=== PATIENT | female | born 1985 | race Caucasian/White ===

== ENCOUNTER 2020-10-01 15:43 | Observation (INO) ==
[2020-10-01] MEDS ORDERED: VANCOMYCIN CONSULT ACTIVE PRN (17:33)
[2020-10-01] MEDS ORDERED: cefTRIAXone SODIUM 1,000 MG/50 ML BAG IV STA (17:33)
[2020-10-01] MEDS ORDERED: VANCOMYCIN HCL 1,500 MG in SODIUM CHLORIDE 0.9% 500 ML IV ONE (17:33)
--- NOTE | 2020-10-01 17:43 | Emergency Department Note ---
Impression & Plan Tenosynovitis of finger, IV drug abuse, Cellulitis of finger of left hand ED Provider Note NAME: KANDI BUSTILLO AGE: 35 SEX: F : 1985 ARRIVES VIA: Walk-In INFORMANT: Patient ED PROVIDER(S): Yao Doan DO CHIEF COMPLAINT: Pain in left hand HPI: Patient is a 35-year-old female IV drug user who intermittently injects heroin that presents to the ER for severe left hand pain, swelling and redness. She injected about 2-3 nights ago around the left hand on the dorsal surface. She notes significant swelling of the left second digit with redness tracking into the hand and swelling of the remaining digits. Pain is severe with movement. Describes as a 6 out of 10. Denies any headache or chest pain. No shortness of breath, nausea, vomiting or diarrhea. No dysuria, urgency or frequency. No other exacerbating or remitting factors. ROS: See above HPI for pertinent positives & negatives. A total of 10 systems reviewed and were otherwise negative. PAST MEDICAL HISTORY:See Below PAST SURGICAL HISTORY:See Below FAMILY HISTORY:See Below SOCIAL HISTORY:See Below HOME MEDICATIONS:See Below ALLERGIES:See Below VITALS:See Below PHYSICAL EXAMINATION: GENERAL: Sitting up in bed, alert, disheveled, no acute distress EYE EXAM: normal conjunctiva. OROPHARYNX: mucous membranes are moist LUNGS: Clear to auscultation. Normal chest wall mechanics HEART: no murmurs, S1 normal and S2 normal ABDOMEN: abdomen soft, non-tender, normo-active bowel sounds, no masses, no rebound or guarding. UPPER EXTREMITIES: Swelling of the left hand with circumferential swelling and redness of the left second digit. Held in partial flexion. Significant pain with extension. Swelling of the remaining digits with intermittent edema tracking on the dorsal surface of the hand up to the wrist. Skin is warm and tender. No drainage. No focal abscess. LOWER EXTREMITIES: No pitting edema. NEURO EXAM: Normal sensorium MEDICAL DECISION MAKING: Patient is a 35-year-old female who is an IV drug user that presents the ER for swelling of her left hand as well as finger. She has significant pain and redness. Is held in flexion. Consistent with tenosynovitis. Redness is streaking up the wrist into the forearm. Vitals are stable. X-ray shows no obvious foreign body. Labs show no significant leukocytosis or anemia. BMP with LFTs bilirubin was unremarkable. Covid was negative. Patient was updated bedside. She given IV vancomycin any Rocephin to cover for any anaerobes in case she licks needles. Patient was discussed the hospitalist admitted for further work-up. Triage Nursing notes reviewed. Prior medical records reviewed Vital Signs: reviewed and remarkable for no significant abnormalities Differential diagnosis: Cellulitis, abscess, MRSA infection, DVT, necrotizing fasciitis, dermatitis, drug eruption, allergic reaction, as well as other pathologies. ER treatment provided: See below Diagnostics interpreted by me: ECG: none Cardiac Monitoring: An order was placed for continuous cardiac monitoring. The monitor shows a rate of 95 with sinus rhythm. Laboratory studies: As stated above and show below. Imaging studies: X-ray left hand show no obvious foreign bodies Consultation(s): Discussed with hospitalist for further evaluation ED COURSE: Procedures: none Critical Care: None Past Med/Surg History Medical History No acute medical problems Surgical History No pertinent past surgical history Social History (Updated 08/21/20 @ 23:54 by Estephania Morrison PA-C) Smoking Status: Current every day smoker Tobacco Type: Cigarettes Hx Substance Use: Yes Non-Prescribed Medications: Heroin Feels Safe at Home: Yes Allergies Allergies Allergy/AdvReac Type Severity Reaction Status Date / Time Penicillins Allergy Intermediate HIVES Verified 10/01/20 18:56 Home Meds Home Medications Medication Instructions Recorded Confirmed buprenorphine HCl [Subutex] 0 mg SUBLINGUAL DAILY 10/01/20 10/01/20 Results & Data (ED) Vital Signs Vital Signs - 24 hr 10/01/20 16:02 10/01/20 17:56 10/01/20 20:14 Temperature 36.6 C Temperature Source Oral Pulse Rate 97 H Pulse Rate [Finger] 92 H 90 Respiratory Rate 18 18 20 Respiratory Effort / Characteristics Non-Labored Spontaneous Non-Labored Spontaneous Respiratory Depth Normal Normal Respiratory Pattern Regular Regular Blood Pressure 140/79 Blood Pressure [Left Arm] 107/68 116/73 Blood Pressure Mean 99 Blood Pressure Mean [Left Arm] 81 87 Blood Pressure Position Sitting Pulse Oximetry 97 100 98 Oxygen Delivery Method Room Air Room Air Room Air Sepsis Recent Fever Within 48 Hours No Sepsis New/Unexplained Change in Mental Status N/A Sepsis Action Taken by Nursing No Action Required Laboratory Data Result diagrams: 10/01/20 17:50 10/01/20 17:50 Lab Results 10/01/20 10/01/20 10/01/20 Range/Units 17:50 17:50 17:56 WBC 8.69 (4.8-10.8) K/uL RBC 4.52 (4.2-5.4) M/uL Hgb 13.8 (12.0-16.0) g/dL Hct 40.2 (37-47) % MCV 88.9 (80-100) fL MCH 30.5 (25-34) pg MCHC 34.3 (32-36) g/dL RDW Std Deviation 40.4 (36.4-46.3) fL RDW Coeff of Peyton 12.5 (11.5-14.5) % Plt Count 280 (130-400) K/uL MPV 8.6 (7.4-10.4) fL Immature Gran % (Auto) 0.2 % Neut % (Auto) 58.0 % Lymph % (Auto) 27.2 % [place] % (Auto) 10.6 % Eos % (Auto) 3.8 % Baso % (Auto) 0.2 % Neut # (Auto) 5.04 (1.4-6.5) K/uL Lymph # (Auto) 2.36 (1.2-3.4) K/uL [place] # (Auto) 0.92 H (0.11-0.59) K/uL Eos # (Auto) 0.33 (0-0.5) K/uL Baso # (Auto) 0.02 (0-0.2) K/uL Immature Gran # (Auto) 0.02 (0.00-0.02) K/uL Sodium 138 (136-145) mmol/L Potassium 4.0 (3.5-5.1) mmol/L Chloride 104 (98-107) mmol/L Carbon Dioxide 31 (21-32) mmol/L Anion Gap 3.0 (3-11) BUN 10 (7-18) mg/dl Creatinine 0.84 (0.6-1.2) mg/dl Est Cr Clr Drug Dosing 90.0 ml/min Est GFR ( Amer) 103.6 Est GFR (Non-Af Amer) 89.4 BUN/Creatinine Ratio 11.6 (10-20) Glucose 83 (70-99) mg/dl Calcium 9.1 (8.5-10.1) mg/dl Total Bilirubin 0.2 (0.2-1) mg/dl AST 35 (15-37) U/L ALT 60 (12-78) U/L Alkaline Phosphatase 72 (45-117) U/L Total Protein 7.8 (6.4-8.2) gm/dl Albumin 3.8 (3.4-5.0) gm/dl Globulin 4.0 (2.5-4.0) gm/dl Albumin/Globulin Ratio 1.0 (0.9-2) SARS-CoV-2 Ag (Rapid) Negative (Negative) Administered Medications Discontinued Medications Vancomycin HCl 1,500 mg/ (Sodium Chloride) 530 mls @ 200 mls/hr IV NOW ONE Stop: 10/01/20 20:11 Last Admin: 10/01/20 18:17 Dose: 200 mls/hr Documented by: [id number] Ceftriaxone Sodium (Rocephin) 1,000 mg in 50 mls @ 100 mls/hr IV NOW STA Stop: 10/01/20 18:02 Last Infusion: 10/01/20 20:26 Dose: 0 mls/hr Documented by: [id number] Admin: 10/01/20 17:53 Dose: 100 mls/hr Documented by: [id number] Discharge Plan Visit Data Chief Complaint: Finger Pain Stated Complaint: left hand finger infection ED Provider: Yao Doan Discharge Problem: Tenosynovitis of finger, IV drug abuse, Cellulitis of finger of left hand Forms Stand Alone Forms: My [facility] [employer] Prescriptions Prescriptions: No Action buprenorphine HCl [Subutex] 2 mg Tablet, Sublingual 0 mg SUBLINGUAL DAILY RF: 0
[2020-10-01 17:57] LABS: Basophils # (auto) 0.02 K/uL (0-0.2); Basophils % (auto) 0.2 %; Eosinophils # (auto) 0.33 K/uL (0-0.5); Eosinophils % (auto) 3.8 %; Hematocrit (blood only) 40.2 % (37-47); Hemoglobin 13.8 g/dL (12.0-16.0); Immature Granulocytes # (auto) 0.02 K/uL (0.00-0.02); Immature Granulocytes % (auto) 0.2 %; Lymphocytes # (auto) 2.36 K/uL (1.2-3.4); Lymphocytes % (auto) 27.2 %; Mean Corpuscular Hemoglobin 30.5 pg (25-34); Mean Corpuscular Hgb Conc 34.3 g/dL (32-36); Mean Corpuscular Volume 88.9 fL (80-100); Mean Platelet Volume 8.6 fL (7.4-10.4); Monocytes # (auto) 0.92 K/uL (0.11-0.59); Monocytes % (auto) 10.6 %; Neutrophils # (auto) 5.04 K/uL (1.4-6.5); Platelet Count 280 K/uL (130-400); RDW Coefficient of Variation 12.5 % (11.5-14.5); RDW Standard Deviation 40.4 fL (36.4-46.3); Red Blood Count 4.52 M/uL (4.2-5.4); White Blood Count 8.69 K/uL (4.8-10.8)
--- NOTE | 2020-10-01 18:08 | XRay Report ---
XR hand LT min 3V routine CLINICAL HISTORY: Left hand swelling. COMPARISON: None. DISCUSSION: There is soft tissue edema most pronounced involving the index finger. There is also soft tissue swelling involving the dorsum of the hand. No soft tissue gas is visualized. There are no acu te fractures. No radiopaque foreign bodies are visualized. There are no bony destructive lesions. IMPRESSION: 1. No acute fractures 2. No foreign bodies identified 3. Pronounced soft tissue edema ACT 112: Negative or not required by law. Electronically signed by: Bobby Rapp M.D. 10/01/2020 6:06 PM
[2020-10-01 18:14] LABS: Albumin Level 3.8 gm/dl (3.4-5.0); BUN Creatinine Ratio 11.6 (10-20); Calcium 9.1 mg/dl (8.5-10.1); Est GFR (African American) 103.6; Est GFR (Non-African American) 89.4
[2020-10-01 18:19] LABS: Bilirubin,Total 0.2 mg/dl (0.2-1); Total Protein 7.8 gm/dl (6.4-8.2)
--- NOTE | 2020-10-01 19:43 | History & Physical Report ---
Date of Service October 01, 2020 Assessment & Plan (1) IV drug abuse: (2) Cellulitis of finger of left hand: Caren is a 35-year-old female with a past history of heroin use on Subutex who presents with a worsening left first digit cellulitis following heroin injection 2 days ago. Left second digit nonpurulent cellulitis 2/2 IV drug abuse X-ray shows substantial soft tissue swelling but no signs of osteomyelitis or abscess No leukocytosis, no fever/chills or signs of systemic illness - Received vancomycin and Rocephin in ER Continue vancomycin and Rocephin empiric, narrow after 24 hours if clinically improving Blood cultures ordered. Empiric antibiotics prior to blood cultures, may lower sensitivity Tylenol 650 every 4 hours as needed Toradol 10 mg every 6 hours as needed No indication for surgical consultation or abscess amenable to drainage at this time History of IV drug abuse, heroin Patient with a history of snorting and injecting heroin Reports on Subutex followed by psychiatry in [place], has not injected drugs prior to this in a very long time Continue Subutex while inpatient Maximize nonnarcotic analgesia Provide counseling and support, patient will need follow-up appointment with substance abuse counselor at discharge Patient denies other recreational drug use including cocaine No Elliott spots/Janeway lesions on exam. No murmur on exam. Tobacco use Cigarettes, vaping [employer] Nicotine 14 transdermal, Nicorette gum as needed DVT prophylaxis: Lovenox Diet: Regular Disposition: Medical/surgical CODE STATUS: Full code, discussed with patient History of Present Illness Chief Complaint: Hand pain Primary Care Provider: NO PCP Caren reports she was partying with friends two days ago. Usually does not use IV drugs, snorts drugs. "No idea what I was doing," and the next day noticed swelling in her L hand in the inside of the pointer finger. Injected in the pointer finger on the top. Slowly progressively worsened and pain spread into the whole hand. Pain is increased, movement is intact, but has a 'strange pressure' feeling through the whole hand and finger. Finger has been very hot and tender to the touch. Has had some shooting pain to the palm. Feels better with squeezing because of the pressure. She is RIGHT handed. Strength intact. Past injection with heroin. Most recent episode was heroin No attempted tx No other remitting factors Medical Problems: Subutex prescribed by Dr. Vale in [place]. Denies other medications, hx anx/depression Surgery: Hx broke R hand 3x and had to be set. Allergic: PCN, severe hives and difficulty breathing (childhood). Social: Smokes cigarettes and vapes multiple times daily. Would like a nicotine patch. Denies alcohol use in 'a very long time.' Denies recreational drugs other than heroin. Specifically denies heroin use. Lives with her son's father in [place] but recently has been living with her boyfriend in [place], feels safe at home. No hx blood clots, PE. No problems with bleeding. Code Status: Full Code Allergies Allergy/AdvReac Type Severity Reaction Status Date / Time Penicillins Allergy Intermediate HIVES Verified 10/01/20 18:56 Home Medications Medication Instructions Recorded Confirmed Type buprenorphine HCl [Subutex] 0 mg SUBLINGUAL DAILY 10/01/20 10/01/20 History Past Med/Surg History Medical History No acute medical problems Surgical History No pertinent past surgical history Social History (Updated 08/21/20 @ 23:54 by Estephania Morrison PA-C) Smoking Status: Current every day smoker Tobacco Type: Cigarettes Hx Substance Use: Yes Non-Prescribed Medications: Heroin Feels Safe at Home: Yes Review of Systems Review of Systems: Constitutional: Denies fever, chills Eyes: Denies double vision, vision change, eye pain ENT: Denies ear pain, sore throat, sinus wicho. Had a 'weird taste in the mouth, metallic.' No loss in taste or smell. Cardiovascular: Denies Chest pain, chest pressure, palpitations, extremity swelling Respiratory: Denies shortness of breath, cough, sputum production, difficulty breathing Gastrointestinal: Denies abdominal pain, nausea, vomiting, constipation, diarrhea Genitourinary: Denies pain with urination, urinary urgency, urinary frequency Musculoskeletal: Denies weakness, muscle aches/pain, joint aches/pain Integumentary:Denies rash, lesions, bruising Neurological: Denies headache, Some lightheadedness on standing, otherwise no sudden weakness or change in sensation other than her hand noted above. Physical Exam Physical Exam: General: A&Ox3. NAD. Cooperative. HEENT: Atraumatic, normocephalic. No scleral hemorrhages. Pulm: CTAB A&P. -wheezes, -rales, -rhonchi. Symmetrical chest rise. No increase work of breathing. No respiratory distress. Cardiac: RRR, -mrg. Radial pulses intact and symmetrical. Abdominal: Nontender, nondistended, soft. BS present. MSK: L hand with circumferential swelling, tenderness, and warmth at the 2nd digit extending into the palm with additional swelling of the proximal 1st and 3rd digit. Erythema of the 1st digit and palm extending to the wrist. Sensation intact in all fingertips. 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 Strength to supervisor parachute manufacturing and extension intact in 3-5th digits. resisted extension of the first digit produces pain at the dorsal 1st proximal digit. R hand with normal strength to supervisor parachute manufacturing, wrist flexion/extension. elbow flexion/extension 5/5 bilaterally. No elliott spots/Janeway lesions identified. II: Pupils equal and reactive, no relative afferent pupillary defect, no VF cuts III, IV, : EOM intact, no gaze preference or deviation, no nystagmus. Results & Data Results & Data ([facility]) Vital Signs (Past 12 Hours) Vital Signs Temp Pulse Pulse Resp BP BP Pulse Ox 10/01/20 17:56 92 H 18 107/68 100 10/01/20 16:02 36.6 C 97 H 18 140/79 97 Supervising Physician Co-Signing Physician Notes Patient seen and examined, chart reviewed, case discussed with Dr. Gomes and I agree with his assessment and plan as documented above. Briefly, patient is a 35yo C female with history of heroine use currently on Subutex presenting with acute infection of second digit on left hand after injecting heroin 2 days ago. On exam she is afebrile, HD stable, NAD, non-toxic in appearance, poorly kempt, tearful over needing to stay in the hospital Skin - 2nd digit on left hand edematous with warmth and erythema, erythema and edema of dorsum of left hand, no lymphangitic streaking, no crepitus/bullae. Sensation and mobility intact, HEENT - NC/AT, MMM, neck supple, mask in place Heart - +S1/S2, regular, no m/r/g Lungs - CTA Abd - +BS, soft, NT/ND Ext - No edema Neuro - grossly nonfocal Labs and images reviewed. No leukocytosis. Electrolytes and renal function are within normal range. X-ray of left hand with no fracture or evidence of bony involvment Assessment/Plan: 35yo C female with acute cellulitis of left second finger after heroine injection. No bony involvement or foreign body present. Patient afebrile, HD stable with no evidence of systemic infection -Observation to medical floor -Check blood cultures x 2 sets - patient has already received empiric antibiotics which may skew results -Vancomycin and Ceftriaxone IV -Tylenol and Toradol as needed -Do not believe there is a need for surgical consultation at this time - if patient fails to improve with above measures would consider additional imaging and consultation -Encourage cessation of drug use. Will continue Suboxone while inpatient and avoid opiates. Patient should continue with outpatient Psychiatry visits for her addiction -Remainder of plan as above Resident Activity Tracking Resident Involvement: Resident Care Provided Care Provided: Adult Hospital Medicine
--- NOTE | 2020-10-01 21:47 | Billing Data ---
Date of Service October 01, 2020 Coding Level of Care Code 16749 OBS Care - Level 2
[2020-10-01] MEDS ORDERED: ACETAMINOPHEN 325 MG TAB PO PRN (22:16)
[2020-10-01] MEDS ORDERED: ONDANSETRON INJ 2 MG/ML 2 ML VIAL IV PRN (22:16)
[2020-10-01] MEDS ORDERED: NICOTINE POLACRILEX 2 MG GUM MT PRN (22:16)
[2020-10-01] MEDS ORDERED: KETOROLAC TROMETHAMINE 15 MG/ML VIAL IV PRN (22:16)
[2020-10-01] MEDS ORDERED: NICOTINE 14 MG/24 HR PATCH TD SCH (23:00)
--- NOTE | 2020-10-02 02:00 | Communication Note ---
Date of Service: October 02, 2020 Notified at 0141 that patient had eloped from hospital. Strongly recommended patient remain in hospital on earlier discussion based on severity of cell ulitis, potential for the infection to worsen and spread, and need for IV antibiotics with further evaluation. Per security report that her sister was at the hospital was passed to nursing, on staff attempt to contact patient she was found to have eloped with IV still in place. Per nursing security confirmed that patient was seen leaving the hospital premesis in a car. Patient had previously reported her sister lived in [place] to staff. Contact number in chart unable to be reached. Discussed with nursing staff and reported to security and coordinator.
[2020-10-02] MEDS ORDERED: VANCOMYCIN HCL 1,000 MG in SODIUM CHLORIDE 0.9% 250 ML IV SCH (04:00)
[2020-10-02] MEDS ORDERED: ENOXAPARIN INJ 40 MG/0.4 ML SYR SQ SCH (08:00)
[2020-10-02] MEDS ORDERED: buprenorphine HCL 8 MG SUBL SL ONE (09:00)
[2020-10-02] MEDS ORDERED: cefTRIAXone SODIUM 1,000 MG in DEXTROSE 5% 50 ML IV SCH (21:00)
[2020-10-03] MEDS ORDERED: VANCOMYCIN TROUGH ONE (03:30)
== END 2020-10-02 02:00 | disposition left against medical advice (07) ==
LOC: ED 15:43 → 3W 15:43

== ENCOUNTER 2020-10-06 21:27 | Inpatient (IN) ==
[2020-10-06] MEDS ORDERED: VANCOMYCIN CONSULT ACTIVE PRN (22:22)
[2020-10-06] MEDS ORDERED: VANCOMYCIN HCL 1,500 MG in SODIUM CHLORIDE 0.9% 500 ML IV ONE (22:22)
[2020-10-06] MEDS ORDERED: cefTRIAXone SODIUM 1,000 MG/50 ML BAG IV STA (22:22)
[2020-10-06] MEDS ORDERED: SODIUM CHLORIDE 0.9% 1000ML 1,000 ML IV SCH (22:30)
--- NOTE | 2020-10-06 23:13 | Emergency Department Note ---
History of Present Illness General Chief complaint: Hand Injury/Pain Stated complaint: left hand finger pain, swelling, left hand pain Time Seen by Provider: 10/06/20 22:16 History of Present Illness Maximum Pain Intensity: 9 This is a 35-year-old female that presents to the emergency department via private vehicle with complaints "left hand finger pain, swelling, left hand pain". The patient notes that Sunday/Sunday she injected fentanyl into the medial base of the left second digit. She is right-hand dominant. She notes an infection developed and she was seen here in the emergency department and was to be admitted. She then notes that she eloped. She is returning here noting worsening of symptoms. She denies any fevers, chills, chest pain or shortness of breath. She notes that if she squeezes the reason it feels better. She also notes that she did strike the dorsum of the left hand and finger against an object earlier tonight. She notes that she last used illicit substances just prior to arrival around 8:30 PM and notes that she snorted "fentanyl, dope and meth". Patient rates her current pain is a 9/10. I will note the patient is also here with her mother and the mother is quite concerned for the patient and at this time is filling out a petitioning statement 302. Home Medications Medication Instructions Recorded Confirmed Type clindamycin HCl 300 mg PO QID 7 Days #28 cap 10/02/20 10/06/20 Rx buprenorphine-naloxone 1.5 tab SUBLINGUAL DAILY 10/06/20 10/06/20 History Allergies Allergy/AdvReac Type Severity Reaction Status Date / Time Penicillins Allergy Intermediate HIVES Verified 10/06/20 23:41 Past Med/Surg History Medical History No acute medical problems Surgical History No pertinent past surgical history Social History Smoking Status: Current every day smoker Tobacco Type: Cigarettes Cigarettes Per Day: NA; Second Hand Exposure: Yes; Hx Alcohol Use: No Hx Substance Use: No (patient denies current use, admits past use) Preferred Language: Mohawk Communication Ability: Effective 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 Beliefs That Will Affect Care: None Current Living Situation: Other Current Living Situation Comment: fiance Assistive Devices: None Review of Systems A total of 10 systems reviewed and were otherwise negative Physical Exam Vital Signs Vital Signs - 24 hr 10/06/20 21:32 10/06/20 23:20 10/07/20 00:21 Temperature 36.5 C Temperature Source Oral Pulse Rate 97 H Pulse Rate [Finger] 98 H 95 H Pulse Rhythm Regular Pulse Rhythm [Finger] Regular Regular Pulse Strength Normal Pulse Strength [Finger] Normal Respiratory Rate 18 18 18 Respiratory Effort / Characteristics Non-Labored Spontaneous Non-Labored Spontaneous Non-Labored Spontaneous Respiratory Depth Normal Normal Normal Respiratory Pattern Regular Regular Regular Blood Pressure 142/92 H Blood Pressure [Right Arm] 123/86 128/96 Blood Pressure Mean 108 Blood Pressure Mean [Right Arm] 98 106 Blood Pressure Position Sitting Blood Pressure Position [Right Arm] Lying Sitting Pulse Oximetry 100 100 100 Oxygen Delivery Method Room Air Room Air Room Air Sepsis Recent Fever Within 48 Hours No Sepsis New/Unexplained Change in Mental Status No Sepsis Action Taken by Nursing No Action Required 10/07/20 01:25 10/07/20 02:39 Temperature Temperature Source Pulse Rate Pulse Rate [Finger] 85 82 Pulse Rhythm Pulse Rhythm [Finger] Regular Pulse Strength Pulse Strength [Finger] Normal Respiratory Rate 16 18 Respiratory Effort / Characteristics Non-Labored Spontaneous Non-Labored Spontaneous Respiratory Depth Normal Normal Respiratory Pattern Blood Pressure Blood Pressure [Right Arm] 116/78 Blood Pressure Mean Blood Pressure Mean [Right Arm] 90 Blood Pressure Position Blood Pressure Position [Right Arm] Lying Pulse Oximetry 97 97 Oxygen Delivery Method Room Air Room Air Sepsis Recent Fever Within 48 Hours Sepsis New/Unexplained Change in Mental Status Sepsis Action Taken by Nursing VITAL SIGNS - Vital signs and nursing notes were reviewed. Stable and afebrile. GENERAL -35-year-old female her appearing stated age who is in no acute distress but does appear to be quite groggy at this time and is having trouble keeping her eyes open. She does answer questions but in short answers. SKIN/extremity-the patient's left hand circumferentially is diffusely erythematous with edema. Much of the edema is focused in the left second digit diffusely. Patient is able to actively flex and extend all digits of the left hand but decreased range of motion of the left second digit is noted secondary to edema. I am able to passively fully extend the left second digit with min imal pain. No fluctuance. No palpable abscess. Cap refill within normal limits. There is some purplish discoloration noted to a few focal spots of the left second digit. No drainage at this time. HEAD - NC/AT. EYES - PERRL with EOMI bilaterally. Sclera anicteric. EARS - No deformities of external structures noted on gross examination bilaterally. NECK - Neck with FROM. No nuchal rigidity. LUNGS - Chest wall symmetric without accessory muscle use, intercostals retractions, or central cyanosis. Normal vesicular breath sounds CTA B/L. No wheezes, rales, or rhonchi appreciated. CARDIAC - RRR with S1/S2. No murmur, rubs, or gallops appreciated. EXTREMITIES - No clubbing or peripheral cyanosis. No pretibial edema present. Skin and hand as above. +5/5 strength noted in UE/LE bilaterally. NEUROLOGIC - Cranial nerves II through XII grossly intact. Sensory intact to light touch throughout. PSYCH - A&O, and cooperates fully with examiner. Pt is very pleasant and interacts well with examiner. Course Administered Medications Potassium Chloride/Sodium Chloride (Normal Saline W/20 Meq Kcl) 20 meq in 1,000 mls @ 100 mls/hr IV .Q10H TYLER Stop: 11/06/20 04:00 Last Admin: 10/07/20 05:15 Dose: 100 mls/hr Documented by: [id number] Discontinued Medications Sodium Chloride (Nss 1000ml) 1,000 mls @ 999 mls/hr IV .Q1H1M TYLER Stop: 10/06/20 23:30 Last Infusion: 10/07/20 00:25 Dose: 0 mls/hr Documented by: [id number] Admin: 10/06/20 23:20 Dose: 999 mls/hr Documented by: [id number] Ceftriaxone Sodium (Rocephin) 1,000 mg in 50 mls @ 100 mls/hr IV NOW STA Stop: 10/06/20 22:51 Last Infusion: 10/06/20 23:20 Dose: 0 mls/hr Documented by: [id number] Admin: 10/06/20 23:02 Dose: 100 mls/hr Documented by: [id number] Vancomycin HCl 1,500 mg/ (Sodium Chloride) 530 mls @ 200 mls/hr IV NOW ONE Stop: 10/07/20 01:00 Last Infusion: 10/07/20 02:38 Dose: 0 mls/hr Documented by: [id number] Admin: 10/06/20 23:20 Dose: 200 mls/hr Documented by: [id number] Acetaminophen (Ofirmev) 1,000 mg in 100 mls @ 400 mls/hr IV NOW STA Stop: 10/07/20 01:15 Last Infusion: 10/07/20 02:08 Dose: 0 mls/hr Documented by: [id number] Admin: 10/07/20 01:23 Dose: 400 mls/hr Documented by: [id number] Ioversol (Ioversol 100ml) 100 ml IV ONCE ONE Stop: 10/07/20 01:35 Last Admin: 10/07/20 01:34 Dose: 92 ml Documented by: [id number] Medical Decision Making Laboratory Data Result diagrams: 10/06/20 22:45 10/06/20 22:45 Lab Results 10/06/20 10/06/20 10/06/20 Range/Units 22:45 22:45 22:45 WBC 8.54 (4.8-10.8) K/uL RBC 4.32 (4.2-5.4) M/uL Hgb 13.2 (12.0-16.0) g/dL Hct 37.7 (37-47) % MCV 87.3 (80-100) fL MCH 30.6 (25-34) pg MCHC 35.0 (32-36) g/dL RDW Std Deviation 40.0 (36.4-46.3) fL RDW Coeff of Peyton 12.4 (11.5-14.5) % Plt Count 300 (130-400) K/uL MPV 8.7 (7.4-10.4) fL Immature Gran % (Auto) 0.2 % Neut % (Auto) 62.3 % Lymph % (Auto) 22.1 % [place] % (Auto) 11.0 % Eos % (Auto) 4.0 % Baso % (Auto) 0.4 % Neut # (Auto) 5.32 (1.4-6.5) K/uL Lymph # (Auto) 1.89 (1.2-3.4) K/uL [place] # (Auto) 0.94 H (0.11-0.59) K/uL Eos # (Auto) 0.34 (0-0.5) K/uL Baso # (Auto) 0.03 (0-0.2) K/uL Immature Gran # (Auto) 0.02 (0.00-0.02) K/uL ESR 22 H (0-21) mm/hr Sodium 137 (136-145) mmol/L Potassium 3.9 (3.5-5.1) mmol/L Chloride 104 (98-107) mmol/L Carbon Dioxide 30 (21-32) mmol/L Anion Gap 3.0 (3-11) BUN 13 (7-18) mg/dl Creatinine 0.73 (0.6-1.2) mg/dl Est Cr Clr Drug Dosing 103.6 ml/min Est GFR ( Amer) 122.8 Est GFR (Non-Af Amer) 106.0 BUN/Creatinine Ratio 18.5 (10-20) Glucose 134 H (70-99) mg/dl Lactate (0.4-2.0) mmol/L Calcium 8.7 (8.5-10.1) mg/dl Total Bilirubin 0.2 (0.2-1) mg/dl AST 36 (15-37) U/L ALT 63 (12-78) U/L Alkaline Phosphatase 88 (45-117) U/L C-Reactive Protein 1.48 H (0-0.29) mg/dl Total Protein 7.4 (6.4-8.2) gm/dl Albumin 3.4 (3.4-5.0) gm/dl Globulin 4.0 (2.5-4.0) gm/dl Albumin/Globulin Ratio 0.9 (0.9-2) TSH 3.270 (0.300-4.500) uIu/ml HCG, Qual (Negative) Urine Color Urine Appearance (Clear) Urine pH (4.5-7.5) Ur Specific [place] (1.000-1.030) Urine Protein (Negative) Urine Glucose (UA) (Negative) Urine Ketones (Negative) Urine Blood (Negative) Urine Nitrite (Negative) Urine Bilirubin (Negative) Urine Urobilinogen (Negative) Ur Leukocyte Esterase (Negative) Urine WBC (Auto) (0-5) /hpf Urine RBC (Auto) (0-4) /hpf U Hyaline Cast (Auto) (0-5) /lpf U Epithel Cells (Auto) (0-5) /lpf Urine Bacteria (Auto) (Negative) Urine Opiates Screen (Neg) Ur Methadone, Qual (Neg) Urine Barbiturates (Neg) Ur Phencyclidine (PCP) (Neg) U Amphetamin/Meth Scrn (Neg) MDMA (Ecstasy) Screen (Neg) U Benzodiazepines Scrn (Neg) Ur Cocaine Metabolite (Neg) U Marijuana (THC) Screen (Neg) 10/06/20 10/06/20 10/06/20 Range/Units 22:45 22:45 23:00 WBC (4.8-10.8) K/uL RBC (4.2-5.4) M/uL Hgb (12.0-16.0) g/dL Hct (37-47) % MCV (80-100) fL MCH (25-34) pg MCHC (32-36) g/dL RDW Std Deviation (36.4-46.3) fL RDW Coeff of Peyton (11.5-14.5) % Plt Count (130-400) K/uL MPV (7.4-10.4) fL Immature Gran % (Auto) % Neut % (Auto) % Lymph % (Auto) % [place] % (Auto) % Eos % (Auto) % Baso % (Auto) % Neut # (Auto) (1.4-6.5) K/uL Lymph # (Auto) (1.2-3.4) K/uL [place] # (Auto) (0.11-0.59) K/uL Eos # (Auto) (0-0.5) K/uL Baso # (Auto) (0-0.2) K/uL Immature Gran # (Auto) (0.00-0.02) K/uL ESR (0-21) mm/hr Sodium (136-145) mmol/L Potassium (3.5-5.1) mmol/L Chloride (98-107) mmol/L Carbon Dioxide (21-32) mmol/L Anion Gap (3-11) BUN (7-18) mg/dl Creatinine (0.6-1.2) mg/dl Est Cr Clr Drug Dosing ml/min Est GFR ( Amer) Est GFR (Non-Af Amer) BUN/Creatinine Ratio (10-20) Glucose (70-99) mg/dl Lactate 1.0 (0.4-2.0) mmol/L Calcium (8.5-10.1) mg/dl Total Bilirubin (0.2-1) mg/dl AST (15-37) U/L ALT (12-78) U/L Alkaline Phosphatase (45-117) U/L C-Reactive Protein (0-0.29) mg/dl Total Protein (6.4-8.2) gm/dl Albumin (3.4-5.0) gm/dl Globulin (2.5-4.0) gm/dl Albumin/Globulin Ratio (0.9-2) TSH (0.300-4.500) uIu/ml HCG, Qual Negative (Negative) Urine Color Yellow Urine Appearance Cloudy A (Clear) Urine pH 6.0 (4.5-7.5) Ur Specific Dow[place] 1.018 (1.000-1.030) Urine Protein Negative (Negative) Urine Glucose (UA) Negative (Negative) Urine Ketones Negative (Negative) Urine Blood Negative (Negative) Urine Nitrite Negative (Negative) Urine Bilirubin Negative (Negative) Urine Urobilinogen Negative (Negative) Ur Leukocyte Esterase Negative (Negative) Urine WBC (Auto) 1-5 (0-5) /hpf Urine RBC (Auto) 0-4 (0-4) /hpf U Hyaline Cast (Auto) 0 (0-5) /lpf U Epithel Cells (Auto) >30 H (0-5) /lpf Urine Bacteria (Auto) 1+ H (Negative) Urine Opiates Screen (Neg) Ur Methadone, Qual (Neg) Urine Barbiturates (Neg) Ur Phencyclidine (PCP) (Neg) U Amphetamin/Meth Scrn (Neg) MDMA (Ecstasy) Screen (Neg) U Benzodiazepines Scrn (Neg) Ur Cocaine Metabolite (Neg) U Marijuana (THC) Screen (Neg) 10/06/20 Range/Units 23:00 WBC (4.8-10.8) K/uL RBC (4.2-5.4) M/uL Hgb (12.0-16.0) g/dL Hct (37-47) % MCV (80-100) fL MCH (25-34) pg MCHC (32-36) g/dL RDW Std Deviation (36.4-46.3) fL RDW Coeff of Peyton (11.5-14.5) % Plt Count (130-400) K/uL MPV (7.4-10.4) fL Immature Gran % (Auto) % Neut % (Auto) % Lymph % (Auto) % [place] % (Auto) % Eos % (Auto) % Baso % (Auto) % Neut # (Auto) (1.4-6.5) K/uL Lymph # (Auto) (1.2-3.4) K/uL [place] # (Auto) (0.11-0.59) K/uL Eos # (Auto) (0-0.5) K/uL Baso # (Auto) (0-0.2) K/uL Immature Gran # (Auto) (0.00-0.02) K/uL ESR (0-21) mm/hr Sodium (136-145) mmol/L Potassium (3.5-5.1) mmol/L Chloride (98-107) mmol/L Carbon Dioxide (21-32) mmol/L Anion Gap (3-11) BUN (7-18) mg/dl Creatinine (0.6-1.2) mg/dl Est Cr Clr Drug Dosing ml/min Est GFR ( Amer) Est GFR (Non-Af Amer) BUN/Creatinine Ratio (10-20) Glucose (70-99) mg/dl Lactate (0.4-2.0) mmol/L Calcium (8.5-10.1) mg/dl Total Bilirubin (0.2-1) mg/dl AST (15-37) U/L ALT (12-78) U/L Alkaline Phosphatase (45-117) U/L C-Reactive Protein (0-0.29) mg/dl Total Protein (6.4-8.2) gm/dl Albumin (3.4-5.0) gm/dl Globulin (2.5-4.0) gm/dl Albumin/Globulin Ratio (0.9-2) TSH (0.300-4.500) uIu/ml HCG, Qual (Negative) Urine Color Urine Appearance (Clear) Urine pH (4.5-7.5) Ur Specific [place] (1.000-1.030) Urine Protein (Negative) Urine Glucose (UA) (Negative) Urine Ketones (Negative) Urine Blood (Negative) Urine Nitrite (Negative) Urine Bilirubin (Negative) Urine Urobilinogen (Negative) Ur Leukocyte Esterase (Negative) Urine WBC (Auto) (0-5) /hpf Urine RBC (Auto) (0-4) /hpf U Hyaline Cast (Auto) (0-5) /lpf U Epithel Cells (Auto) (0-5) /lpf Urine Bacteria (Auto) (Negative) Urine Opiates Screen Pos H (Neg) Ur Methadone, Qual Neg (Neg) Urine Barbiturates Neg (Neg) Ur Phencyclidine (PCP) Neg (Neg) U Amphetamin/Meth Scrn Pos H (Neg) MDMA (Ecstasy) Screen Pos H (Neg) U Benzodiazepines Scrn Neg (Neg) Ur Cocaine Metabolite Neg (Neg) U Marijuana (THC) Screen Neg (Neg) Imaging Data Radiologist's Impression: CT OTHER - LEFT HAND WITH CONTRAST: Negative for CT signs of osteomyelitis. Negative for fluid collection or abscess. Diffuse distal forearm dorsal soft tissue swelling extending across the wrist joint into the dorsal aspect of the hand and especially the index finger Radiologist: Simone Mays MD Study ready at 01:33 and initial results transmitted at 01:45 MDM Narrative Patient was seen and evaluated as above in room B5. Review was performed of nursing notes and vital signs. I did review pertinent previous visits and patient history. After obtaining a thorough history and physical examination the above work up was performed. Patient reportedly eloped on her previous visit here which she confirms. She is nontoxic on examination in regard to vital signs however the left hand and specifically left second index finger does display a fair amount of cellulitic change. There is no fluctuance. IV access was established. Labs were drawn. No leukocytosis or anemia. ESR 22. Renal function within normal limits. CRP mildly elevated 1.48. test nega tive. Urinalysis does not reveal evidence of infection. Salicylate level not concerning the elevated. Acetaminophen level was drawn but I will note that the level of 9 is likely secondary to her having IV acetaminophen here and denies taking any p.o. acetaminophen. Urine drug screen consistent with patient history. Covid screening negative. Given the presentation I did find it reasonable to discuss this with the on-call orthopedist, Dr. Berg. At that time initial plan was to transfer pending CT scan results. CT scan obtained of the left hand. Reassuringly, this did not reveal any osteomyelitis, fluid collection or abscess. I discussed this again with the orthopedist. Patient at that time did not have any concerning pain with passive extension of the left second digit and did not seem to display any findings consistent with that of flexor tenosynovitis on exam. At this time we agreed upon IV antibiotics, admission by the medicine team here and he would see the patient later this morning. I believe this is very reasonable. I believe that given the presentation, patient recently eloping, that admission here is in the patient's best interest. Case discussed with the hospitalist. Please refer to further documentation regarding her stay. Patient's mother did write a petitioning statement 302. Case was discussed with the attending physician who also evaluated the hand/finger. In the evaluation and treatment of this patient the following differential diagnoses were entertained: Fracture, dislocation, subluxation, contusion, extensor/flexor tenosynovitis, osteomyelitis, abscess, among others. Impression & Plan Cellulitis of finger of left hand, Cellulitis of hand Discharge Plan Visit Data Chief Complaint: Hand Injury/Pain Stated Complaint: left hand finger pain, swelling, left hand pain ED Provider: Keanu Larry ED Midlevel Provider: Manuel Arana Discharge Problem: Cellulitis of finger of left hand, Cellulitis of hand Patient Disposition: Admitted As Inpatient Condition: Good Discharge Instructions Interventions: ED Discharge Assessment Last Done: 10/07/20 03:44 Addendum (Blank) Addendum October 07, 2020 05:22 HPI: 35F with pmhx of polysubstance abuse/IVDA on Suboxone presents to ED with 302 petition from mother concern for patient's continued drug abuse and harmful choices in the setting of her drug abuse where she eloped from hospitalization for left hand infection on 10/02 now with worsening symptoms. PE: AFVSS, NAD Ext: Left hand with edema, erythema, induration, warmth and tenderness. No pain with passive stretch. Cap refill wnl. Psych: Poor decision making with poor insight. Plan: Hand cellulitis, Admit for IV ABX. Orthopedics consulted. 302 warrant completed by delegate. Unable to complete psychiatric assessment until patient is clinical sober and medically cleared. Of note, FB pipe in pelvic area appreciated on CT life claims examiner films. I reviewed with patient and she agreed to remove it herself under senior ui designer and subsequently was placed in biohazard bag and secure with her belongings. I reviewed the patient's past medical history, medications, and visit nursing notes. I discussed the case with the physician apartment community assistant manager, examined the patient, and agree with the findings and plan as documented in PAC Bamat's note.
[2020-10-06 23:16] LABS: Basophils # (auto) 0.03 K/uL (0-0.2); Basophils % (auto) 0.4 %; Eosinophils # (auto) 0.34 K/uL (0-0.5); Hematocrit (blood only) 37.7 % (37-47); Hemoglobin 13.2 g/dL (12.0-16.0); Immature Granulocytes # (auto) 0.02 K/uL (0.00-0.02); Immature Granulocytes % (auto) 0.2 %; Lymphocytes # (auto) 1.89 K/uL (1.2-3.4); Lymphocytes % (auto) 22.1 %; Mean Corpuscular Hemoglobin 30.6 pg (25-34); Mean Corpuscular Volume 87.3 fL (80-100); Mean Platelet Volume 8.7 fL (7.4-10.4); Monocytes # (auto) 0.94 K/uL (0.11-0.59); Neutrophils # (auto) 5.32 K/uL (1.4-6.5); Neutrophils % (auto) 62.3 %; Platelet Count 300 K/uL (130-400); RDW Coefficient of Variation 12.4 % (11.5-14.5); Red Blood Count 4.32 M/uL (4.2-5.4); White Blood Count 8.54 K/uL (4.8-10.8)
[2020-10-06 23:35] LABS: Albumin Level 3.4 gm/dl (3.4-5.0); BUN Creatinine Ratio 18.5 (10-20); Calcium 8.7 mg/dl (8.5-10.1); Creatinine Clr Calc Pharmacy 103.6 ml/min; Est GFR (African American) 122.8; Potassium 3.9 mmol/L (3.5-5.1)
[2020-10-06 23:37] LABS: Albumin Globulin Ratio 0.9 (0.9-2); Bilirubin,Total 0.2 mg/dl (0.2-1); C Reactive Protein 1.48 mg/dl (0-0.29); Total Protein 7.4 gm/dl (6.4-8.2)
[2020-10-06 23:59] LABS: Pregnancy Test, Serum Negative (Negative)
[2020-10-07] MEDS ORDERED: ACETAMINOPHEN 1,000 MG/100 ML VIAL IV STA (01:01)
[2020-10-07] MEDS ORDERED: IOVERSOL 100ml IV ONE (01:34)
[2020-10-07 02:44] LABS: Appearance Urine Cloudy (Clear); Bacteria Urine Automated 1+ (Negative); Bilirubin Urine Negative (Negative); Blood Urine Negative (Negative); Cast Urine Automated 0 /lpf (0-5); Color Urine Yellow; Epithelial Cell Urine Auto >30 /lpf (0-5); Glucose Urine UA Negative (Negative); Ketones Urine Negative (Negative); Leukocyte Esterase Urine Negative (Negative); Nitrite Urine Negative (Negative); Protein Urine Negative (Negative); Specific Gravity Urine 1.018 (1.000-1.030); Urobilinogen Urine Negative (Negative)
[2020-10-07 02:57] LABS: RBC Urine Automated 0-4 /hpf (0-4)
--- NOTE | 2020-10-07 02:58 | History & Physical Report ---
Date of Service October 07, 2020 Assessment & Plan (1) Cellulitis of finger of left hand: Cellulitis of left index finger/dorsum of hand/wrist/tenosynovitis of finger- Less involvement of right hand and fingers Placed on vancomycin IV and ceftriaxone IV. Orthopedic surgery has been consulted by the ED NSS + KCl 20 mEq at 100 mils per hour Acetaminophen 650 mg p.o. every 6 hours as needed mild pain or temperature Present on Admission?: Yes (2) Tenosynovitis of finger: See above Present on Admission?: Yes (3) Cellulitis of hand: See above Present on Admission?: Yes (4) IV drug abuse: History of heroin abuse. crack pipe removed from her vagina by the ED Urine drug screen is pending Lethargic in ED. We will need to be monitored for potential withdrawal pending results of urine drug screen. One-to-one observation has been ordered, has patient has eloped after being admitted on 10/01, and eloped on 10/02. Consult psychiatry Present on Admission?: Yes History of Present Illness Chief Complaint: The patient presents to the emergency department with complaint of generalized left hand and in particular left index finger pain and swelling Primary Care Provider: NO PCP The patient is a 35-year-old female with a past medical history including IV drug abuse and fracture of right distal radius, who was initially admitted to [facility] for hand cellulitis on 10/01/2020, and eloped on 10/02/[address] in [address]. She presents to the emergency department with the same complaint this evening. CT scan of hand was negative for osteomyelitis, orthopedic surgery was consulted over the phone, and the patient was placed in a 302 and sent to the medicine service for admission. Allergies Allergy/AdvReac Type Severity Reaction Status Date / Time Penicillins Allergy Intermediate HIVES Verified 10/06/20 23:41 Home Medications Medication Instructions Recorded Confirmed Type clindamycin HCl 300 mg PO QID 7 Days #28 cap 10/02/20 10/06/20 Rx buprenorphine-naloxone 1.5 tab SUBLINGUAL DAILY 10/06/20 10/06/20 History Past Med/Surg History Medical History No acute medical problems Surgical History No pertinent past surgical history Social History (Updated 08/21/20 @ 23:54 by Estephania Morrison PA-C) Smoking Status: Current every day smoker Tobacco Type: Cigarettes Cigarettes Per Day: NA; Second Hand Exposure: Yes; Hx Alcohol Use: No Hx Substance Use: No (patient denies current use, admits past use) Preferred Language: Vietnamese Communication Ability: Effective Site Director Required: No Beliefs That Will Affect Care: None Current Living Situation: Other Current Living Situation Comment: philip Feels Safe at Home: Yes Assistive Devices: None Review of Systems Review of Systems: Unobtainable due to reduced consciousness Physical Exam Physical Exam: The patient is unresponsive, normocephalic and atraumatic, lying in bed and in no acute distress. HEENT--PERRL, EOMI, mucous membranes and oropharynx dry. Neck--supple. No JVD. No bruits. Thyroid normal, trachea midline, no ad enopathy. Heart--normal S1 and S2. No murmurs, rubs or gallops. Lungs--clear bilaterally, no respiratory distress, no accessory muscle use. Abdomen--normal bowel sounds and soft. Nontender. Nondistended. Extremities--normal lower extremity exam. Dorsum of hands bilaterally diffusely erythematous and warm. Left index finger in particular swollen more so between MCP and DIP and less so distally. Dermatologic--normal skin turgor, normal color, no abnormal lymph nodes, no rash. Neurologic--cranial nerves II through XII grossly intact. Rheumatologic--limited exam Psychiatric--sedated/unresponsive Results & Data Results & Data ([facility]) Vital Signs (Past 12 Hours) Vital Signs Temp Pulse Pulse Resp BP BP Pulse Ox 10/07/20 02:39 82 18 116/78 97 10/07/20 01:25 85 16 97 10/07/20 00:21 95 H 18 128/96 100 10/06/20 23:20 98 H 18 123/86 100 10/06/20 21:32 97.7 F 97 H 18 142/92 H 100 Laboratory Results Laboratory Results WBC 8.54 K/uL (4.8-10.8) 10/06/20 22:45 RBC 4.32 M/uL (4.2-5.4) 10/06/20 22:45 Hgb 13.2 g/dL (12.0-16.0) 10/06/20 22:45 Hct 37.7 % (37-47) 10/06/20 22:45 MCV 87.3 fL (80-100) 10/06/20 22:45 MCH 30.6 pg (25-34) 10/06/20 22:45 MCHC 35.0 g/dL (32-36) 10/06/20 22:45 RDW Std Deviation 40.0 fL (36.4-46.3) 10/06/20 22:45 RDW Coeff of Peyton 12.4 % (11.5-14.5) 10/06/20 22:45 Plt Count 300 K/uL (130-400) 10/06/20 22:45 MPV 8.7 fL (7.4-10.4) 10/06/20 22:45 Immature Gran % (Auto) 0.2 % 10/06/20 22:45 Neut % (Auto) 62.3 % 10/06/20 22:45 Lymph % (Auto) 22.1 % 10/06/20 22:45 Floyd % (Auto) 11.0 % 10/06/20 22:45 Eos % (Auto) 4.0 % 10/06/20 22:45 Baso % (Auto) 0.4 % 10/06/20 22:45 Neut # (Auto) 5.32 K/uL (1.4-6.5) 10/06/20 22:45 Lymph # (Auto) 1.89 K/uL (1.2-3.4) 10/06/20 22:45 Floyd # (Auto) 0.94 K/uL (0.11-0.59) H 10/06/20 22:45 Eos # (Auto) 0.34 K/uL (0-0.5) 10/06/20 22:45 Baso # (Auto) 0.03 K/uL (0-0.2) 10/06/20 22:45 Immature Gran # (Auto) 0.02 K/uL (0.00-0.02) 10/06/20 22:45 ESR 22 mm/hr (0-21) H 10/06/20 22:45 Sodium 137 mmol/L (136-145) 10/06/20 22:45 Potassium 3.9 mmol/L (3.5-5.1) 10/06/20 22:45 Chloride 104 mmol/L (98-107) 10/06/20 22:45 Carbon Dioxide 30 mmol/L (21-32) 10/06/20 22:45 Anion Gap 3.0 (3-11) 10/06/20 22:45 BUN 13 mg/dl (7-18) 10/06/20 22:45 Creatinine 0.73 mg/dl (0.6-1.2) 10/06/20 22:45 Est Cr Clr Drug Dosing 103.6 ml/min 10/06/20 22:45 Est GFR ( Amer) 122.8 10/06/20 22:45 Est GFR (Non-Af Amer) 106.0 10/06/20 22:45 BUN/Creatinine Ratio 18.5 (10-20) 10/06/20 22:45 Glucose 134 mg/dl (70-99) H 10/06/20 22:45 Lactate 1.0 mmol/L (0.4-2.0) 10/06/20 22:45 Calcium 8.7 mg/dl (8.5-10.1) 10/06/20 22:45 Total Bilirubin 0.2 mg/dl (0.2-1) 10/06/20 22:45 AST 36 U/L (15-37) 10/06/20 22:45 ALT 63 U/L (12-78) 10/06/20 22:45 Alkaline Phosphatase 88 U/L (45-117) 10/06/20 22:45 C-Reactive Protein 1.48 mg/dl (0-0.29) H 10/06/20 22:45 Total Protein 7.4 gm/dl (6.4-8.2) 10/06/20 22:45 Albumin 3.4 gm/dl (3.4-5.0) 10/06/20 22:45 Globulin 4.0 gm/dl (2.5-4.0) 10/06/20 22:45 Albumin/Globulin Ratio 0.9 (0.9-2) 10/06/20 22:45 HCG, Qual Negative (Negative) 10/06/20 22:45 Urine Color Yellow 10/06/20 23:00 Urine Appearance Cloudy (Clear) A 10/06/20 23:00 Urine pH 6.0 (4.5-7.5) 10/06/20 23:00 Ur Specific [place] 1.018 (1.000-1.030) 10/06/20 23:00 Urine Protein Negative (Negative) 10/06/20 23:00 Urine Glucose (UA) Negative (Negative) 10/06/20 23:00 Urine Ketones Negative (Negative) 10/06/20 23:00 Urine Blood Negative (Negative) 10/06/20 23:00 Urine Nitrite Negative (Negative) 10/06/20 23:00 Urine Bilirubin Negative (Negative) 10/06/20 23:00 Urine Urobilinogen Negative (Negative) 10/06/20 23:00 Ur Leukocyte Esterase Negative (Negative) 10/06/20 23:00 Diagnostic Findings [facility] Patient: KANDI BUSTILLO (Female) : 83 Status: ER Date: 10/07/20 01:29 Room #: History: R/O INFECTION IN LEFT HAND, SWELLING TO WHOLE LEFT HAND Slices: [id number] Priors: Tech: Amando Haydenie @ [phone] Exams: CT OTHER LEFT HAND WITH CONTRAST Contrast: IV Amt: 92 ML OPTIRAY 320 Accession Numbers: [id number] Preliminary Findings Only See Final Report For Complete Findings CT OTHER - LEFT HAND WITH CONTRAST: Negative for CT signs of osteomyelitis. Negative for fluid collection or abscess. Diffuse distal forearm dorsal soft tissue swelling extending across the wrist joint into the dorsal aspect of the hand and especially the index finger Radiologist: Simone Mays MD Study ready at 01:33 and initial results transmitted at 01:45 *This report constitutes a preliminary interpretation only. Non-acute findings felt to be unrelated to the clinical presentation may not be discussed in this report. The study will be interpreted and a final report will be generated by the local Radiologist the following shift. To reach the hospital radiology department call [phone]. If a discrepancy is found between the preliminary and final interpretations of this study, please notify us via our Client Portal at [email or web address] can also fax this report with a description of the discrepancy, or include the final report, to our daytime fax number [phone].If faxing, please indicate the severity of discrepancy using one of the following categories: [ ] 1 - Agree/Informational [ ] 2 - Unlikely to Affect Management [ ] 3 - Possible Eventual Change of Management [ ] 4 - Probable Immediate Change of Management For all other patient related information, please fax us at [phone]. [id number] Code Status & VTE Plan Code Status Full code VTE Prophylaxis Plan VTE Prophylaxis will be ordered: Yes PG Care Time/CCT Total # of Minutes Spent Total Time Spent with Patient: Total time spent is greater than 50% in coordin ation of care (as documented) at patient's floor/unit and/or counseling patient: Coding Level of Care Code 04019 Initial Inpt Care Lvl 3 Diagnoses Cellulitis of finger of left hand L03.012 Tenosynovitis of finger M65.9 Cellulitis of hand L03.119 IV drug abuse F19.10
[2020-10-07 03:09] LABS: Thyroid Stimulating Hormone 3.27 uIu/ml (0.300-4.500)
[2020-10-07 03:13] LABS: Amphetamines+Metham, Urine Pos (Neg); Barbiturates, Urine Neg (Neg); Benzodiazepine, Urine Neg (Neg); Cocaine, Urine Neg (Neg); MDMA (Ecstacy), Urine Pos (Neg); Methadone, Urine Neg (Neg); Opiate, Urine Pos (Neg); Phencyclidine, Urine Neg (Neg)
[2020-10-07 03:47] LABS: Salicylate 2.5 mg/dl (2.8-20)
[2020-10-07] MEDS ORDERED: VANCOMYCIN CONSULT ACTIVE PRN (04:01)
[2020-10-07] MEDS ORDERED: ONDANSETRON INJ 2 MG/ML 2 ML VIAL IV PRN (04:01)
[2020-10-07] MEDS: NSS + 20MEQ KCL 20 MEQ/1,000 ML BAG IV SCH ×3 (05:15→23:54)
--- NOTE | 2020-10-07 07:55 | CT Scan Report ---
CT hand LT w con CT DOSE: 207.50 mGy.cm CLINICAL HISTORY: Left hand edema and infection status post self drug administration TECHNIQUE: The patient was scanned in a dynamic helical fashion during intravenous administration of 92 cc of Optiray 320. A dose lowering technique was utilized adhering to the principles of ALARA. COMPARISON STUDY: X-ray study dated 10/01/2020 FINDINGS: No fractures are visualized. There are no dislocations. There are no radiopaque foreign bodies. There is dorsal soft tissue edema. There are no fluid collections to indicate an abscess. There are no bony destructive changes to indicate acute osteomyelitis. IMPRESSION: 1. No evidence of fracture 2. No foreign bodies identified 3. No CT evidence of osteomyelitis or abscess. 4. Soft tissue edema ACT 112: Negative or not required by law. Electronically signed by: Bobby Rapp M.D. 10/07/2020 7:53 AM
[2020-10-07] MEDS: VANCOMYCIN HCL 1,000 MG in SODIUM CHLORIDE 0.9% 250 ML IV SCH ×3 (08:00→23:42)
[2020-10-07] MEDS: ACETAMINOPHEN 325 MG TAB PO PRN (09:10)
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
--- NOTE | 2020-10-07 09:40 | Hospitalist Progress Note ---
Date of Service October 07, 2020 Assessment & Plan (1) Cellulitis of finger of left hand: Caren is a 35-year-old female with a notable history of opioid use disorder, related IV drug use, methamphetamine disuse, and depression who presented to [facility] on 10/06 for evaluation of significant swelling and redness involving the left finger, after IV drug use involving said digit, after eloping from the hospital on 10/01. She is hemodynamically stable with a one-to-one as well as an active 302 warrant affect. Cellulitis of L Index Finger - Due to IV Drug Use - Clinically, patient initially presented to [facility] on 10/01 for evaluation of le ft finger edema and erythema, found to be consistent with cellulitis 2/2 IV drug use at that site. Patient subsequently eloped and re-presented on 10/06 with the same complaint. - Work-up in the ER throughout both admissions demonstrated the following: - No appreciable leukocytosis. Afebrile. Hemodynamically stable. ESR and CRP mildly elevated. - Hand-XR (10/01) significant for pronounced soft tissue edema, but no acute bony destruction, fractures, evidence of soft tissue gas, or foreign bodies. - Hand-CT (10/06) demonstrated significant soft tissue edema without evidence of osteomyelitis or abscess, and no fracture or foreign bodies - Blood cultures pending - Empirically started on ceftriaxone and vancomycin IV for treatment of cellulitis - Maintain suspicion for a micro-compartment syndrome -- does not seem to be the case at this time - Orthopedics consulted: appreciate insight and recommendations - Obtain MRI left hand w/ + w/o contrast to r/o osteomyelitis Opioid Use Disorder with IV Drug Use - Patient reports significant history of opioid use, generally involving snorting heroin and fentanyl -- but also meth, too. - Last use: endorses snorting heroin and methamphetamines yesterday ; endorses regular, every-day use - Not currently demonstrating signs and symptoms of withdrawal, however, should be closely monitored throughout her stay here - Patient precontemplative on ready to change currently -- continue to discuss on a regular basis, offer aid PRN - HCV screening performed 08/22 was presumptively positive, alongside a +RNA titer - HBsAg / HBV IgM (-) in 08/2020 -- will repeat given new needle injury - No reported HIV screening in our system -- anticipate testing after obtaining consent - Continue Suboxone 8-2mg x 1.5 tab SL daily -- patient does normally take this at home - Psych consult placed Suspected Depression - Mother endorses that patient has a significant history of depression and anxiety. On the 302 petition, notes that she has - on multiple occasions - wish she was / threatening to kill herself - Routine mental status exams, discussion of symptoms and treatment options (if applicable) while here - Psych consulted and following: appreciate insight and recommendations - 302 warrant currently in effect given concerns for mental health, previous suicidality, IV drug use with recent elopement, and fear of her posing a danger to herself - One-to-one ordered and present Dispo: Active 302 warrant with 1-to-1 in effect. Med/surg. Psych following. Diet: Full diet w/ safety tray + NSS w/ KCl 20 mEq @ 100cc/hr Dispo: Ambulation Code: FULL CODE (2) IV drug abuse: (3) Opioid use disorder: Admission and Anticipated Discharge Date Admission Date: October 07, 2020 Supervising Physician Co-Signing Physician Notes I personally examined the patient and verified all coronado points of history and exam, discussed case, and agree with decision making with Dr Fransico lopez. tired. no s/s withdrawal right now vitals noted nad heent nc at mmm had markedly swollen but soft swelling, diffusely tender hand cellulitis, high concern tenosynovitis, possible osteomyelitis -fortunately soft and nothing c/w compartment syndrome - serial exams -broad abx -mri -pain control/supportive care polysubstance abuse -follow for wtihdrawal otherwise as above Subjective Patient seen at the bedside this morning. Reports feeling okay overall, worried about her hands. She says that on Sunday, she was injecting fentanyl into her left index finger, and the next day reports that it began getting swollen, painful, and red. She initially reported to the hospital for treatment, but subsequently eloped. I asked her if there is a specific concern that she had, or something we could do better in attempt to get an understanding of the reason for her elopement. She said she just wanted to go home. Says her mom drove her. On further history, she says that her left index finger is really painful and has been getting worse. Pain 9/10 at present. She said that injecting drugs is atypical for her. Normally, she endorses snorting heroin, fentanyl, and meth. She denies any other recent use of recreational drugs. Denies any recent alcohol use. She denies any chills or night sweats recently. Denies any chest pain, chest pressure, palpitations, or shortness of breath. Denies any abdominal pain. Just finished her breakfast prior to my arrival, denies any nausea or vomiting. No diarrhea recently. Denies any dysuria, urinary frequency, and urinary urgency. Of note, a foreign body (pipe) was discovered in the vaginal canal by CT scan upon her admission, higher suspicion should be maintained for development of UTI related symptoms. We also had an introductory discussion regarding her frequent use of recreational drugs, including heroin, fentanyl, and ecstasy. I asked if she has had thoughts of changing any of these habits, or was in the process of change her thinking about the change. She would like to continue thinking about it. Not ready to make changes at this time. Review of Systems Review of Systems: As per HPI Physical Exam Constitutional: Pale and tired appearing 35-year-old female who is lying back in her hospital bed asleep upon my arrival. She does arouse spontaneously to hearing her name. Intermittently throughout her conversation, her affect does appear sad and somewhat anxious. She is fully alert and oriented. In mild distress secondary the pain in her left hand. Eyes: Nonicteric, no conjunctival injection. Respiratory: Normal respiratory effort with symmetric expansion of the chest. Lungs are clear to auscultation bilaterally without crackles or wheezes. Cardiovascular: Normal rate and regular rhythm. S1 and S2 are present, no murmurs rubs or gallops appreciated. Upper extremity pulses are 2+ bilaterally. Gastrointestinal (Abdomen): Normoactive bowel sounds. Abdomen is soft, nontender, nondistended. No suprapubic tenderness. Skin: On visual examination, both hands do appear to have very mild degree of edema on the palmar surface. No palmar erythema. Examination of her left hand does reveal a grossly enlarged index finger with a greater diameter near the PIP than the DIP, with significant loss of creases, significant erythema, and tenderness to palpation. No appreciable tenderness to palpation over the joints, however. Blanching is present. She is able to wiggle that finger but not flex or extend to any significant degree. She did have good wrist strength, as well as finger AB and adduction. Paper Coater strength is strong bilaterally. Sensation to light touch is grossly intact across the finger of interest, as well as throughout both hands. Radial pulses 2+ bilaterally, with a little bit more edema around the left wrist compared to the right. Results & Data Results & Data ([facility]) Vital Signs (Past 12 Hours) Vital Signs Temp Pulse Resp BP Pulse Ox 10/07/20 04:46 36.5 C 98 H 18 115/64 95 10/07/20 03:40 98 H 16 115/64 95 10/07/20 02:39 82 18 116/78 97 10/07/20 01:25 85 16 97 10/07/20 00:21 95 H 18 128/96 100 10/06/20 23:20 98 H 18 123/86 100 Resident Activity Tracking Resident Involvement: Resident Care Provided Care Provided: Adult Hospital Medicine
--- NOTE | 2020-10-07 09:46 | Pharmacy Report ---
Pharmacy Abx Dose Short Note - Date of Service October 07, 2020 - Assessment & Plan Assessment 35 year old F receiving vancomycin and rocephin for cellulitis of finger Day # 2 of antimicrobial therapy. Plan Vancomycin * Received loading dose of vancomycin 1500 mg (~21 mg/kg/dose) last evening * Started on vancomycin 1 gm iv q 8 hrs (~14 mg/kg/dose) based upon AUC nomogram dosing * Patient with recent of IV drug abuse, recent admission 10/01-10/02 with same presenting symptoms today however left AMA * Ortho consulted per MD notes * Level ordered for tonight before midnight dose to ensure therapeutic Pharmacy will continue to follow and will adjust dose/frequency as necessary. Thank you.
--- NOTE | 2020-10-07 10:05 | Orthopedic Consultation ---
Date of Consultation October 07, 2020 Assessment & Plan (1) Cellulitis of hand: History of Present Illness Reason for Consultation: Left hand cellulitis Attending Physician: Yao Borges DO History of Present Illness 35-year-old female that presents to the emergency department via private vehicle with complaints "left hand finger pain, swelling, left hand pain". The patient notes that Sunday/Sunday she injected fentanyl into the medial base of the left second digit. She is right-hand dominant. She notes an infection developed and she was seen here in the emergency department and was to be admitted. She then notes that she eloped. She is returning here noting worsening of symptoms. She denies any fevers, chills, chest pain or shortness of breath. She notes that if she squeezes the reason it feels better. She also notes that she did strike the dorsum of the left hand and finger against an object earlier tonight. She notes that she last used illicit substances just prior to arrival around 8:30 PM and notes that she snorted "fentanyl, dope and meth". Patient rates her current pain is a 9/10. Patient was admitted to the hospitalist service from the emergency room. Patient seen and examined on the floor. She has received doses of IV ceftriaxone and vancomycin and has not had any reaction to these medications. She states she occasionally feels some pain tingling up her forearm. The dorsum of her hand feels a little bit numb. No prior history of injuries to the finger. Allergies Allergy/AdvReac Type Severity Reaction Status Date / Time Penicillins Allergy Intermediate HIVES Verified 10/06/20 23:41 Home Medications Medication Instructions Recorded Confirmed Type clindamycin HCl 300 mg PO QID 7 Days #28 cap 10/02/20 10/06/20 Rx buprenorphine-naloxone 1.5 tab SUBLINGUAL DAILY 10/06/20 10/06/20 History Patient History Medical History No acute medical problems Surgical History No pertinent past surgical history Social History (Updated 10/07/20 @ 10:00 by Nate Berg MD) Smoking Status: Current every day smoker Tobacco Type: Cigarettes Cigarettes Per Day: NA; Second Hand Exposure: Yes; Hx Alcohol Use: No Hx Substance Use: Yes Non-Prescribed Medications: Crack / Cocaine and Heroin Last Used Substance: Unknown Preferred Language: Divehi Communication Ability: Effective [employer]S [employer] Required: No Beliefs That Will Affect Care: None Current Living Situation: Other Current Living Situation Comment: fiance Assistive Devices: None Physical Exam Physical Exam: Left hand exam reveals the patient to have erythema overlying the dorsum of the hand as well as the dorsum of the index finger MCP joint and proximal phalanx. She has diffuse swelling over the dorsum of the hand as well as the proximal phalanx. The swelling tapers towards the distal aspect of the finger to the point where the DIP joint and distal appeared normal. She has a purplish colored band on the dorsum of the proximal phalanx where she says she hit the finger on the chair. She reports intact sensation to moving light touch. However it is diminished diffusely over the hand. She fires FDS FDP and EDC to the finger. Kanavel signs are negative x3. No tenderness over the flexor tendon sheath no pain with passive extension and no sausage digit due to the swelling tapering distally. Results & Data ([facility]) Vital Signs (Past 12 Hours) Vital Signs Temp Pulse Resp BP Pulse Ox 10/07/20 04:46 36.5 C 98 H 18 115/64 95 10/07/20 03:40 98 H 16 115/64 95 10/07/20 02:39 82 18 116/78 97 10/07/20 01:25 85 16 97 10/07/20 00:21 95 H 18 128/96 100 10/06/20 23:20 98 H 18 123/[address] scan and x-rays demonstrate soft tissue swelling but no evidence of abscess. No osteomyelitis.
[2020-10-07] MEDS: BUPRENORPHINE/NALOXONE 8/2 MG TAB SL SCH (10:51)
[2020-10-07] MEDS: metroNIDAZOLE 500 MG/100 ML BAG IV SCH ×2 (12:18→19:11)
[2020-10-07] MEDS ORDERED: diphenhydrAMINE 50 MG/ML VIAL IV PRN ×2 (13:00→18:31)
[2020-10-07] MEDS ORDERED: LORazepam 0.5 MG/1 ML VIAL IV PRN ×2 (13:17→13:20)
--- NOTE | 2020-10-07 14:22 | Billing Data ---
Date of Service October 07, 2020 Coding Level of Care Code 51556 Subseq Hosp Care Lvl 3
[2020-10-07] MEDS ORDERED: BUPRENORPHINE/NALOXONE 8/2 MG TAB SL ONE (16:08)
[2020-10-07] MEDS ORDERED: KETOROLAC TROMETHAMINE 15 MG/ML VIAL IV PRN (18:15)
--- NOTE | 2020-10-07 18:28 | Communication Note ---
Date of Service: October 07, 2020 Subjective: Patient seen at approx. 1800 hours after nursing reported patient was distressed. Was not hostile, but was getting loud. Patient reports that she feels jittery all over and uncomfortable. Endorses feeling anxious. No pain. Feels like "I might throw up, but never do." Denies chest pain, palpitations, shortness of breath. As previously indicated, last use of heroin was day of admission. She did take one Suboxone 8-2mg PO today - normally takes 1.5. Unfortunately was not able to tolerate MRI d/t these symptoms. Denies chest pain, palpitations, or shortness of breath. No abdominal pain. Objective: - General: Patient demonstrating akathisia as I enter the room and appears uncomfortable. Tremulous. Intermittently flails her arms. Speech is somewhat pressured. Does look like she was recently tearful. Denies pain. Compared to before in which none of these symptoms were present, patient is in moderate distress. - Cardiac: Tachycardic with regular rhythm. S1/S2 present without m/r/g. - Pulmonary: Good respiratory effort with symmetric expansion of chest. Very mild tachypnea. Lungs CTAB w/o crackles or wheezes. A&P: Based on patient's presentation of akathisia, intermittent nausea, tachycardia, and heightened anxiety, suspect that patient is demonstrating - at least in part - a component of opioid withdrawal. She denies any recent history of alcohol use and persists this. Will proceed with a one-time dose of lorazepam 0.5mg IV x 1 as well as diphenhydramine 25mg IV x 1. Orders placed for diphenhydramine 50mg IV q4h PRN for anxiety/distress, acetaminophen 650mg PO q6h PRN for pain, trazodone 15mg PO qHS to further aid with sleep and anxiety. Toradol PRN for breakthrough pain. Continue Suboxone 8-2mg PO 1.5x tab daily. Dispo: Med/surg --> Med/surg with Tele in lieu of possible withdrawal, arrhythmia monitoring
[2020-10-07] MEDS ORDERED: ACETAMINOPHEN 325 MG TAB PO PRN (18:31)
[2020-10-07] MEDS ORDERED: diphenhydrAMINE 50 MG/ML VIAL IV STA (18:48)
[2020-10-07] MEDS: traZODone HCL 50 MG TAB PO SCH (20:30)
[2020-10-07] MEDS: cefTRIAXone SODIUM 1,000 MG in DEXTROSE 5% 50 ML IV SCH (20:48)
[2020-10-07] MEDS ORDERED: VANCOMYCIN TROUGH ONE (23:30)
[2020-10-08] MEDS: metroNIDAZOLE 500 MG/100 ML BAG IV SCH ×3 (03:06→21:27)
--- NOTE | 2020-10-08 06:32 | Hospitalist Progress Note ---
Date of Service October 08, 2020 Assessment & Plan (1) Cellulitis of finger of left hand: Caren is a 35-year-old female with a notable history of opioid use disorder, related IV drug use, methamphetamine disuse, and depression who presented to [facility] on 10/06 for evaluation of significant swelling and redness involving the left finger, after IV drug use involving said digit, after eloping from the hospital on 10/01. She is hemodynamically stable with a one-to-one as well as an active 302 warrant affect. Cellulitis of L Index Finger with Likely Tenosynovitis, Possibly ?Osteomyelitis - Due to IV Drug Use - Clinically, patient initially presented to [facility] on 10/01 for evaluation of left finger edema and erythema, found to be consistent with cellulitis 2/2 IV drug use at that site. Patient subsequently eloped and re-presented on 10/06 with the same complaint. - Work-up in the ER throughout both admissions demonstrated the following: - No appreciable leukocytosis. Afebrile. Hemodynamically stable. ESR and CRP mildly elevated. - Hand-XR (10/01) significant for pronounced soft tissue edema, but no acute bony destruction, fractures, evidence of soft tissue gas, or foreign bodies. - Hand-CT (10/06) demonstrated significant soft tissue edema without evidence of osteomyelitis or abscess, and no fracture or foreign bodies - Blood cultures 10/08: Aerobic culture demonstrating coag negative staph 1 out of 4. At this point, likely represents contamination, but will continue to monitor. On appropriate antibiotics. - Ceftriaxone, vancomycin, and Flagyl IV for treatment of cellulitis - Orthopedics consulted: appreciate insight and recommendations - 10/08: Proceed with I&D given growth of suspected abscess. - Hold: MRI left hand w/ + w/o contrast to r/o osteomyelitis given orthopedic intervention Opioid Use Disorder with IV Drug Use - Patient reports significant history of opioid use, generally involving snorting heroin and fentanyl -- but also meth, too. - Last use: endorses snorting heroin and methamphetamines yesterday ; endorses regular, every-day use - Not currently demonstrating signs and symptoms of withdrawal, however, should be closely monitored throughout her stay here - Patient precontemplative on ready to change currently -- continue to discuss on a regular basis, offer aid PRN - HCV screening performed 08/22 was presumptively positive, alongside a +RNA titer - HBsAg / HBV IgM (-) in 08/2020 -- 10/08: HBsAg (-), await IgM - No reported HIV screening in our system -- anticipate testing after obtaining consent - Continue Suboxone 8-2mg x 1.5 tab SL daily -- patient does normally take this at home - Per psych, PDMP demonstrates that patient has not filled Suboxone as outpatient since 04/2020. Will reach out to Dr. Escobar prior to d/c for insight (prescribing physician). Suspected Depression - Mother endorses that patient has a significant history of depression and anxiety. On the 302 petition, notes that she has - on multiple occasions - wish she was / threatening to kill herself - Per night team, patient did endorse feelings of wanting to kill herself last night -- on history this morning, patient denied having ever said this. Continue regular monitoring and 1:1. - Routine discussion of symptoms and treatment options (if applicable) while here - Psych consulted and following: appreciate insight and recommendations - Patient was not able to participate in productive conversation 10/07 -- [address] Will continue to follow and determine need for inpatient psychiatric treatment once medically stable. - 302 warrant currently in effect given concerns for mental health, previous suicidality, IV drug use with recent elopement, and fear of her posing a danger to herself - One-to-one ordered and present COVID-19 - Patient asymptomatic at present: denies constitutional and respiratory symptoms at present - Screened pre-op for I&D on 10/08, found to have a positive test result - Continue to monitor for symptom development - COVID-19 isolation precautions and protocol Dispo: Active 302 warrant with 1-to-1 in effect, Psych following. Med/surg. COVID-19 precautions. Diet: Full diet w/ safety tray + NSS w/ KCl 20 mEq @ 100cc/hr Dispo: Ambulation Code: FULL CODE (2) IV drug abuse: (3) Opioid use disorder: Admission and Anticipated Discharge Date Admission Date: October 07, 2020 Supervising Physician Co-Signing Physician Notes I personally examined the patient and verified all coronado points of history and exam, discussed case, and agree with decision making with Dr Fransico lopez. sleeping but easily awoken. was unable to tolerate MRI vitals noted nad heent nc at mmm hand markedly swollen and tender - more than yesterday -- side of finger w questionable crepitis vs fluctuance that wasn't there before, extensor surface of hand also more edematous hand cellulitis, high concern tenosynovitis, possible osteomyelitis -try again for MRI, but also w clinical worsening - consult ortho. continue abx as current. polysubstance abuse -follow for withdrawal, supportive care otherwise as above Subjective Please see communication note from last night. Upon my visitation around 1800 hrs., patient was akathetic reported some nausea, reported. increased anxiety, and overall discomfort, she believes that she was withdrawing Was subsequently given half milligram of Ativan, 25 of Benadryl, and started on trazodone to help with anxiety and to aid her sleep. Patient was amenable to receiving the MRI after some discussion last night. She was originally worried about taking off her piercings. Per nursing, when she was about to get into the MRI, she reported increased anxiety as well as tremulousness, as described above. MRI was then deferred. Overnight, patient did report to her sitter that she wanted to kill herself. At the bedside this morning, she denies any active or passive suicidal ideation. When questioned about what she said to her sitter last night, she denied and said "I never said that." Says her mood is OK. Her finger hurts quite significantly. She was able to get some sleep with the aid of plan we implemented yesterday evening. Denies any chills or night sweats. No CP/palpitations/SOB. No n/v/d. Review of Systems Review of Systems: As per HPI Physical Exam Constitutional: Tired appearing 35-year-old female who is lying back in her hospital bed asleep upon my arrival into the room. Upon waking she is alert and engaged in her interaction, but makes infrequent eye contact. She appears in mild distress secondary to her pain. Respiratory: Good respiratory effort with symmetric expansion of the chest. Lungs are clear to auscultation bilaterally without crackles or wheezes. Cardiovascular: Normal rate and regular rhythm. S1 and S2 are present without murmurs rubs or gallops. Gastrointestinal (Abdomen): Normal active bowel sounds. Abdomen is soft, nontender, nondistended. Skin: On examination this morning, patient's left index finger does appear more swollen compared to yesterday. There is no visible whiteness over the dorsal aspect of her left index finger around the area of the PIP, concerning for abscess. There is also significant tenderness to palpation throughout the entire finger. No crepitus could be appreciated throughout my examination. The finger is still mostly soft to the touch, even in light of the pronounced edema. Distal sensation is intact within this finger and throughout her hand. She is able to flex this finger just slightly, and barely any extension. Gentle forced extension of left first digit does elicit pain up the extensor surface of her forearm. Pulse 2+. Resident Activity Tracking Resident Involvement: Resident Care Provided Care Provided: Adult Hospital Medicine
[2020-10-08 07:19] LABS: Basophils # (auto) 0.01 K/uL (0-0.2); Basophils % (auto) 0.1 %; Eosinophils % (auto) 1.4 %; Hematocrit (blood only) 37.9 % (37-47); Hemoglobin 12.9 g/dL (12.0-16.0); Immature Granulocytes # (auto) 0.01 K/uL (0.00-0.02); Immature Granulocytes % (auto) 0.1 %; Lymphocytes # (auto) 1.06 K/uL (1.2-3.4); Lymphocytes % (auto) 14.3 %; Mean Corpuscular Hemoglobin 30.1 pg (25-34); Mean Corpuscular Volume 88.6 fL (80-100); Mean Platelet Volume 8.9 fL (7.4-10.4); Monocytes # (auto) 0.71 K/uL (0.11-0.59); Monocytes % (auto) 9.6 %; Neutrophils # (auto) 5.51 K/uL (1.4-6.5); Neutrophils % (auto) 74.5 %; Platelet Count 273 K/uL (130-400); RDW Coefficient of Variation 12.6 % (11.5-14.5); RDW Standard Deviation 40.2 fL (36.4-46.3); Red Blood Count 4.28 M/uL (4.2-5.4)
[2020-10-08] MEDS: VANCOMYCIN HCL 1,000 MG in SODIUM CHLORIDE 0.9% 250 ML IV SCH ×4 (07:34→23:44)
[2020-10-08 08:08] LABS: BUN Creatinine Ratio 6.6 (10-20); Calcium 8.4 mg/dl (8.5-10.1); Creatinine Clr Calc Pharmacy 142.7 ml/min; Est GFR (African American) 141.6; Est GFR (Non-African American) 122.2; Potassium 3.7 mmol/L (3.5-5.1)
--- NOTE | 2020-10-08 09:29 | Pharmacy Report ---
Pharmacy Abx Dose Short Note - Date of Service October 08, 2020 - Assessment & Plan Assessment 35 year old F receiving vancomycin/Flagyl/Rocephin for treatment of finger cellulitis + now 1/2 blood cultures positive for GP cocci Day # 3 of antimicrobial therapy. Plan Vancomycin * Trough level of 11.4 mcg/mL is subtherapeutic * Change to 1000 mg IV every 6 hours * Goal trough level for bacteremia : ~15 mcg/mL * Trough ordered for: 10/09/20 prior to 0600 dose Pharmacy will continue to follow and will adjust dose/frequency as necessary. Thank you.
[2020-10-08] MEDS: NSS + 20MEQ KCL 20 MEQ/1,000 ML BAG IV SCH ×2 (10:34→18:46)
[2020-10-08] MEDS ORDERED: LORazepam 1 MG/2 ML VIAL IV PRN ×2 (10:53→11:00)
[2020-10-08] MEDS: BUPRENORPHINE/NALOXONE 8/2 MG TAB SL SCH (12:16)
--- NOTE | 2020-10-08 13:02 | Progress Note ---
Date of Service October 08, 2020 Assessment & Plan (1) Cellulitis of finger of left hand: The patient has an abscess of her left index finger. I recommend that she have an I&D done. She agrees to proceed. An informed consent was obtained. She is n.p.o. The procedure should be done urgently given the infection. I discussed with her that further surgery may be necessary depending on the results of the operation. A more extensive operation may be necessary. (2) Opioid use disorder: (3) Cellulitis of hand: (4) IV drug abuse: Admission and Anticipated Discharge Date Admission Date: October 07, 2020 Subjective The patient notes that her hand is still painful and swollen. Her left hand. Physical Exam Physical Exam: Median radial and ulnar motor and sensory functions are intact. There is slight tenderness in the second webspace. There is a large abscess on the dorsal ulnar aspect of the index finger proximal phalanx region. There is fluctuance present with crusting of the skin and what almost looks like impending rupture. She has mild tenderness and some swelling over the volar aspect of the digit at the proximal phalanx. Passive extension elicits no discomfort. The middle and distal phalanx are not swollen. Nothing is tracking into the hand. There is swelling and erythema over the dorsum of the hand as well as a swelling and erythema of the finger. There is nothing in the first webspace. Capillary refill less than 2 seconds sensation intact. She can slightly flex the finger and extend it but it is held in resting of flexion. Results & Data ([facility]) Vital Signs (Past 12 Hours) Vital Signs Temp Pulse Pulse Resp BP Pulse Ox 10/08/20 10:15 77 10/08/20 07:38 36.6 C 87 14 126/85 98
--- NOTE | 2020-10-08 13:24 | Anesthesiology Consultation ---
Date of Service October 08, 2020 Assessment & Plan Chart Review Chart Review: Acceptable Risk for Surgery and Patient NOT seen in Pre Admission Testing Consults Requested none ASA [id number] Proposed Anesthesia Anesthesia Type: General History Surgery Operation Date: 10/08/20 13:00 Proposed Procedures p Incision and Drainage Extremity(Left) - Nate Brady MD Height/Weight Height: 5 ft 7 in Weight: 71 kg Allergies Allergy/AdvReac Type Severity Reaction Status Date / Time Penicillins Allergy Intermediate HIVES Verified 10/06/20 23:41 Medications Home Medications Medication Instructions Recorded Confirmed Last Taken clindamycin HCl 300 mg PO QID 7 Days #28 cap 10/02/20 10/06/20 Unknown buprenorphine-naloxone 1.5 tab SUBLINGUAL DAILY 10/06/20 10/06/20 10/06/20 Active Medications Generic Name Dose Route Start Last Admin Trade Name Freq PRN Reason Stop Dose Admin Acetaminophen 650 mg 10/07/20 04:01 10/07/20 09:10 Acetaminophen 325 Mg Tab PO 11/06/20 04:00 650 mg Q4H PRN Administration pain/fever Buprenorphine/Naloxone 1.5 tab 10/07/20 09:00 10/08/20 12:16 Buprenorphine/Naloxone 8/2 Mg Tab SL 11/06/20 08:59 Not Given DAILY TYLER Ceftriaxone Sodium 1,000 mg/ 50 mls @ 100 mls/hr 10/07/20 21:00 10/07/20 21:16 Dextrose IV 10/12/20 21:29 Infused Q24H TYLER Infusion Protocol Potassium Chloride/Sodium Chloride 20 meq in 1,000 mls @ 100 mls/hr 10/07/20 04:01 10/08/20 10:34 Normal Saline W/20 Meq Kcl IV 11/06/20 04:00 100 mls/hr .Q10H TYLER Administration Metronidazole 500 mg in 100 mls @ 100 mls/hr 10/07/20 11:00 10/08/20 13:14 Flagyl IV 10/14/20 10:59 Infused Q8H TYLER Infusion Protocol Vancomycin HCl 1,000 mg/ 270 mls @ 200 mls/hr 10/08/20 06:15 10/08/20 12:10 Sodium Chloride IV 10/15/20 06:14 200 mls/hr Q6 TYLER Administration Protocol Trazodone HCl 50 mg 10/07/20 21:00 10/07/20 20:30 Trazodone Hcl 50 Mg Tab PO 11/06/20 20:59 50 mg HS TYLER Administration Past Medical History Medical History No acute medical problems Exercise / Class Metabolic Activity II 4-5 Yardwork/Stairs/Walk up hill Past Surgical History Surgical History No pertinent past surgical history Past Anesthesia History No Hx of Anesthesia Complications and No Family Hx of Anesthesia Complications History of PONV No Hx of PONV and No Hx of Motion Sickness Social History Smoking Status: Current every day smoker tobacco type: e-cigarettes Smoking cigarettes per day: NA Hx Alcohol Use: No Hx Substance Use: Yes substance use type: heroin and IV drugs Last Used Substance: Unknown Physical Exam Vital Signs Last Vital Signs Temp 36.6 C 10/08/20 07:38 Pulse 77 10/08/20 10:15 Resp 14 10/08/20 07:38 BP 126/85 10/08/20 07:38 Pulse Ox 98 10/08/20 07:38 Testing Laboratory Results 10/08/20 06:40 10/08/20 06:40 Urine Color Yellow 10/06/20 23:00 Urine Appearance Cloudy (Clear) A 10/06/20 23:00 Urine pH 6.0 (4.5-7.5) 10/06/20 23:00 Ur Specific [place] 1.018 (1.000-1.030) 10/06/20 23:00 Urine Protein Negative (Negative) 10/06/20 23:00 Urine Glucose (UA) Negative (Negative) 10/06/20 23:00 Urine Ketones Negative (Negative) 10/06/20 23:00 Urine Nitrite Negative (Negative) 10/06/20 23:00 Ur Leukocyte Esterase Negative (Negative) 10/06/20 23:00 Urine WBC (Auto) 1-5 /hpf (0-5) 10/06/20 23:00 Urine RBC (Auto) 0-4 /hpf (0-4) 10/06/20 23:00 U Hyaline Cast (Auto) 0 /lpf (0-5) 10/06/20 23:00 U Epithel Cells (Auto) >30 /lpf (0-5) H 10/06/20 23:00 Urine Bacteria (Auto) 1+ (Negative) H 10/06/20 23:00 10/06/20 22:50 Aerobic Blood Culture - Preliminary Blood Coag neg staph not lugdunensis Anaerobic Blood Culture - Preliminary No growth in Anaerobic bottle after 24 hours. 10/06/20 23:00 Urine Culture - Preliminary Urine,Clean Catch Pin-point growth present, reincubating. 10/06/20 22:45 Aerobic Blood Culture - Preliminary Blood No growth in Aerobic bottle after 24 hours. Anaerobic Blood Culture - Final Electrocardiogram Date: 10/08/20 Findings: + NSR @ (at 93)
[2020-10-08] MEDS ORDERED: BACITRACIN INJ 50,000 UNIT VIAL ONE (13:25)
[2020-10-08] MEDS ORDERED: BUPIVACAINE 0.5 % 5 MG/1 ML MPF 30ML VIAL ONE (13:25)
[2020-10-08] MEDS ORDERED: LIDOCAINE HCL 1% 20 ML VIAL ONE (13:25)
--- NOTE | 2020-10-08 14:38 | Billing Data ---
Date of Service October 08, 2020 Coding Level of Care Code 42086 Subseq Hosp Care Lvl 3
[2020-10-08] MEDS ORDERED: LARYING-O-JET KIT (LTA) ONE (15:10)
[2020-10-08] MEDS ORDERED: fentaNYL citrate 100 MCG/2 ML VIAL ONE (15:11)
[2020-10-08] MEDS ORDERED: MIDAZOLAM HCL 1 MG/ML 2ML VIAL ONE (15:11)
[2020-10-08] MEDS ORDERED: PROPOFOL IV EMULSION 10 MG/ML 20 ML VIAL IV ONE ×2 (15:12→15:27)
[2020-10-08] MEDS ORDERED: SUCCINYLCHOLINE 100MG/5ML SYR IV ONE (15:12)
[2020-10-08] MEDS ORDERED: DEXAMETHASONE SOD INJ 4 MG/ML VIAL ONE ×2 (15:25→15:27)
[2020-10-08] MEDS ORDERED: ONDANSETRON INJ 2 MG/ML 2 ML VIAL ONE ×2 (15:26→15:27)
[2020-10-08] MEDS ORDERED: HYDROmorphone INJ 2 MG/ML SYR/VIAL ONE (15:27)
[2020-10-08] MEDS ORDERED: SODIUM CHLORIDE 0.9% INJ 10 ML VIAL ONE (15:27)
[2020-10-08] MEDS ORDERED: fentaNYL citrate 100 MCG/2 ML VIAL IV PRN (16:26)
[2020-10-08] MEDS ORDERED: ePHEDrine sulfate 50 MG/ML AMP IV PRN (16:26)
[2020-10-08] MEDS ORDERED: HYDROmorphone INJ 1 MG/ML SYRINGE IV PRN (16:26)
[2020-10-08] MEDS ORDERED: FLUMAZENIL 0.1 MG/1 ML 10 ML VIAL IV PRN (16:26)
[2020-10-08] MEDS ORDERED: ATROPINE SULFATE 0.1 MG/ML 10ML SYR IV PRN (16:26)
[2020-10-08] MEDS ORDERED: PROMETHAZINE HCL 12.5 MG in SODIUM CHLORIDE 0.9% 50 ML IV PRN (16:26)
[2020-10-08] MEDS ORDERED: ONDANSETRON INJ 2 MG/ML 2 ML VIAL IV PRN ×2 (16:26→18:20)
[2020-10-08] MEDS ORDERED: NALOXONE HCL 0.4 MG/1 ML VIAL/CARP IV PRN ×2 (16:26→18:20)
--- NOTE | 2020-10-08 17:03 | Operative Report ---
Post Operative Report Pre & Post Diagnosis Operation Date: 10/08/20 13:00 <No data on this case meets the specified criteria> I identified the patient and participated in the time-out.: Yes Procedure Operation Date: 10/08/20 13:00 Actual Procedures p Incision and Drainage Left Finger(Left) - Nate Brady MD Surgeon LUIS ALBERTO Brady MD [employer] Machine Operator Gerardo KEYES Estimated Blood Loss 1 Findings Consistent with Post-Op Diagnosis Specimens see operative report Drains none Complications none Disposition Accompanied Patient To Recovery: Yes Disposition: Recovery Room Indications This 35-year-old white female was admitted through the ED for a potential abscess in her left index finger. She has been started on IV antibiotics but is having worsening pain, discoloration, and swelling. She elected to proceed with surgical intervention in hopes of improving her outcome. Preoperative imaging and lab work have been obtained. Description of Procedure Patient was taken to the operating room where she was given general anesthesia. She was prepped and draped in the usual sterile fashion. Please see Dr. Brady's operative report for specifics of the procedure. I was present for the entire case from initial patient positioning through final wound closure. Assistance was provided in tissue retraction, hemostasis, abscess evacuation, and final wound closure. Patient was taken to the recovery room in satisfactory condition. I attest to the content of the Intraoperative Record and any orders documented therein. Any exceptions are noted below.
--- NOTE | 2020-10-08 17:28 | Operative Report ---
Post Operative Report Pre & Post Diagnosis Operation Date: 10/08/20 13:00 <No data on this case meets the specified criteria> Left index finger abscess I identified the patient and participated in the time-out.: Yes Procedure Operation Date: 10/08/20 13:00 Actual Procedures p Incision and Drainage Left index finger(Left) - Nate Brady MD Surgeon Nate Brady MD Special Education Teacher Gerardo KEYES no resident or fellow available Estimated Blood Loss 1 Findings Consistent with Post-Op Diagnosis Specimens Culture x1 Drains None Anesthesia Type General Regional Complications none Disposition Accompanied Patient To Recovery: No Disposition: Recovery Room Indications Patient is 35. She is admitted to the hospital for hand swelling which is reportedly due to injecting drugs into her hand. CT scan did not show abscess. X-ray of the hand showed no fracture or foreign material. There was swelling noted. My examination of her today demonstrated a large area of fluctuance on the ulnar aspect of the left index finger overlying the proximal phalanx. I have recommended surgical intervention. Her initial Covid test in the emergency room was negative. The rapid Covid test done in the OR was positive. The appropriate precautions were taken. Description of Procedure Informed consent obtained. Patient identified. She identified the operative site as the left index finger and I marked with my initials. A preoperative surgical timeout was performed and a preop dose of IV antibiotics was given. She was taken to the operating room positioned supine on the operating room table. The left arm was placed on a hand table. A tourniquet was applied to the left wrist that she had an IV in her left forearm. The arm was elevated and exsanguinated with gravity. The tourniquet was inflated to 225 mmHg. This was done after routine prep and drape was performed. DVT prophylaxis with early patient mobility. The examination demonstrated erythema and swelling over the dorsum of the hand and fingers. The index finger was markedly swollen with a palpable abscess on the ulnar aspect of the proximal phalanx. I did not feel anything in the webspaces. There is nothing on the volar surface of the finger. Clinically she did not have any evidence of flexor tenosynovitis. A midline dorsal incision was made of about to sit 2 and half centimeters in length. After incising the skin blunt dissection was performed ulnarly and a large abscess was identified and creamy purulence was evacuated. Culture obtained. This was irrigated with 500 cc of sterile saline. Delaminated epidermis was debrided. There was a small area centrally where the abscess had eroded through the skin. The area was packed with iodoform gauze and it was br ought out through this and it was brought out through this opening. The skin was closed with 4-0 nylon. This tourniquet was let down after 15 minutes of inflation. A bulky soft sterile dressing was applied and she was awakened from anesthesia without difficulty and taken to the recovery room in stable condition. The carpal tunnel block was performed beginning of the operation. Carpal tunnel block and radial nerve block as well as a digital block using 14 cc of local anesthetic. Blood loss was 1 cc. Counts were correct. Specimens were as mentioned above. There were no complications. Patient will be readmitted to the floor for intravenous antibiotics and will monitor her wound. The conclusion the operation the patient was noted to have perhaps a very faint erythematous rash on both of her lower extremities but nothing on her chest shoulders or arms. Her airway was fine. I attest to the content of the Intraoperative Record and any orders documented therein. Any exceptions are noted below.
--- NOTE | 2020-10-08 18:12 | Anesthesiology Progress Note ---
Date of Service October 08, 2020 Anesthesia Post Procedure Vital Signs Vital Signs: Temp Pulse Pulse Pulse Resp BP Pulse Ox 10/08/20 17:40 36.2 C L 79 15 136/92 100 10/08/20 17:30 78 12 132/86 100 10/08/20 17:20 80 13 129/87 100 10/08/20 17:10 36.3 C L 78 13 117/79 100 10/08/20 10:15 77 10/08/20 07:38 36.6 C 87 14 126/85 98 Pain Intensity Left 2nd Digit: Pain Intensity: 0 Transfer of Care Handoff Completed per policy Notes Mental Status: alert / awake / arousable Patient Amnestic to Procedure: Yes Nausea / Vomiting: adequately controlled Pain: adequately controlled Airway Patency, RR, SpO2: stable & adequate BP & HR: stable & adequate Hydration State: stable & adequate Anesthetic Complications: no major complications apparent
[2020-10-08] MEDS ORDERED: bisacodyL 10 MG SUPP PR PRN (18:20)
[2020-10-08] MEDS ORDERED: MAGNESIUM HYDROXIDE SUSP 30 ML UDC PO PRN (18:20)
[2020-10-08] MEDS ORDERED: HYDROmorphone INJ 0.5 MG/0.5 ML SYR IV PRN (18:20)
[2020-10-08] MEDS: DOCUSATE SODIUM 100 MG CAP PO SCH (21:28)
[2020-10-08] MEDS: SENNA 8.6 MG TAB PO SCH (21:28)
[2020-10-08] MEDS: traZODone HCL 50 MG TAB PO SCH (21:28)
[2020-10-08] MEDS: cefTRIAXone SODIUM 1,000 MG in DEXTROSE 5% 50 ML IV SCH (21:28)
[2020-10-09] MEDS: metroNIDAZOLE 500 MG/100 ML BAG IV SCH ×3 (02:27→21:32)
[2020-10-09] MEDS: oxyCODONE HCL IR 5 MG TAB (IMMEDIATE RELEASE) PO PRN ×3 (02:52→17:13)
[2020-10-09] MEDS: NSS + 20MEQ KCL 20 MEQ/1,000 ML BAG IV SCH ×2 (04:21→14:20)
[2020-10-09] MEDS ORDERED: VANCOMYCIN TROUGH ONE (05:30)
[2020-10-09] MEDS: VANCOMYCIN HCL 1,000 MG in SODIUM CHLORIDE 0.9% 250 ML IV SCH ×3 (05:42→19:41)
[2020-10-09 06:41] LABS: Basophils # (auto) 0.01 K/uL (0-0.2); Basophils % (auto) 0.1 %; Hematocrit (blood only) 35.9 % (37-47); Hemoglobin 12.3 g/dL (12.0-16.0); Immature Granulocytes # (auto) 0.02 K/uL (0.00-0.02); Immature Granulocytes % (auto) 0.2 %; Lymphocytes % (auto) 16.3 %; Mean Corpuscular Hemoglobin 30.2 pg (25-34); Mean Corpuscular Hgb Conc 34.3 g/dL (32-36); Mean Corpuscular Volume 88.2 fL (80-100); Mean Platelet Volume 9.2 fL (7.4-10.4); Monocytes # (auto) 0.94 K/uL (0.11-0.59); Monocytes % (auto) 10.9 %; Neutrophils # (auto) 6.23 K/uL (1.4-6.5); Neutrophils % (auto) 72.5 %; Platelet Count 297 K/uL (130-400); RDW Coefficient of Variation 12.1 % (11.5-14.5); RDW Standard Deviation 39.6 fL (36.4-46.3); Red Blood Count 4.07 M/uL (4.2-5.4)
[2020-10-09 07:05] LABS: Est GFR (African American) 136.7; Est GFR (Non-African American) 117.9; Potassium 3.6 mmol/L (3.5-5.1)
[2020-10-09 07:06] LABS: BUN Creatinine Ratio 10.2 (10-20); Calcium 8.2 mg/dl (8.5-10.1); Creatinine Clr Calc Pharmacy 128.2 ml/min
[2020-10-09] MEDS: MULTIVITAMIN TAB PO SCH ×2 (08:56→10:32)
[2020-10-09] MEDS: BUPRENORPHINE/NALOXONE 8/2 MG TAB SL SCH (08:56)
[2020-10-09] MEDS: DOCUSATE SODIUM 100 MG CAP PO SCH ×3 (09:04→21:49)
--- NOTE | 2020-10-09 09:38 | Pharmacy Report ---
Pharmacy Abx Dose Short Note - Date of Service October 09, 2020 - Assessment & Plan Assessment 35 year old F receiving Vancomycin, Ceftriaxone, and Metronidazole for treatment of cellulitis * Day #3 of antimicrobial therapy * Patient underwent I&D of left index finger cellulitis/abscess yesterday * Afebrile. No leukocytosis. Renal fxn stable. Plan Vancomycin * Trough level of 16.5 mcg/mL is therapeutic * Continue dose of 1000 mg IV every 6 hours * Goal trough level: 15 mcg/mL * Trough level ordered for morning of 10/10 to ensure patient is not accumulating vancomycin Metronidazole * 500 mg IV every 8 hours * Appropriate for indication Ceftriaxone * 2000 mg IV every 24 hours * Appropriate for indication and provider prefers 2000 mg dose instead of 1000 mg dose Pharmacy will continue to follow and will adjust dose/frequency as necessary. Thank you.
--- NOTE | 2020-10-09 10:07 | Progress Notes ---
DATE: 10/09/2020 The patient is seen in the COVID unit. She is COVID positive. She is resting comfortably. She responds to questions appropriately. She reports that the hand still hurts, but feels somewhat better. She is afebrile. Her vital signs are stable. Her white count is normal. Cultures are growing out Staph species. Exam of the right hand reveals generalized swelling with intact median, radial and ulnar motor and sensory functions. A little bit of faint erythema throughout the hand, but nothing in terms of a focal area of tenderness or abscess. Her circulation is intact. She has full extension but can flex only about 50%. The left hand is examined. Median, radial and ulnar motor and sensory functions are intact. She is able to extend and slightly flex the fingers. There is minimal pain to passive extension of the digit. There is less erythema and less swelling of the hand. There is still significant swelling of the proximal portion of the left index finger. There has been some bloody drainage, but nothing active. The iodoform packing is pulled. A new bulky hand dressing is applied. Capillary refill less than 2 seconds. Sensation intact. She is COVID positive. She has an infection of her left index finger secondary to injection of narcotics. Growing out Staph species. Overall improved. There are no signs of flexor tenosynovitis. The finger remains swollen but overall the hand shows some improvement. PLAN: Continue to elevate. Continue intravenous antibiotics. I would likely continue the Rocephin and vancomycin until we get more culture information. Discussed with her that she will require intravenous antibiotics and probably some therapy for her hand. The recovery is probably a number of weeks. She can wiggle the fingers.
[2020-10-09] MEDS: NICOTINE 14 MG/24 HR PATCH TD SCH (10:28)
--- NOTE | 2020-10-09 11:04 | Hospitalist Progress Note ---
Date of Service October 09, 2020 Assessment & Plan (1) Cellulitis of finger of left hand: Caren is a 35-year-old female with a notable history of opioid use disorder, related IV drug use, methamphetamine disuse, and depression who presented to [facility] on 10/06 for evaluation of significant swelling and redness involving the left finger, after IV drug use involving said digit, after eloping from the hospital on 10/01. Now s/p I&D by Ortho on 10/08. She is hemodynamically stable with a one-to-one as well as an active 302 warrant. Please see attending physician's attestation for more details Cellulitis of L Index Finger with Abscess, ?Tenosynovitis - Due to IV Drug Use - Clinically, patient initially presented to [facility] on 10/01 for evaluation of left finger edema and erythema, found to be consistent with cellulitis 2/2 IV drug use at that site. Patient subsequently eloped and re-presented on 10/06 with the same complaint. Morning of 10/08, found to have physical exam findings concerning for abscess --> s/p I&D by ortho on 10/08 - Work-up in the ER throughout both admissions demonstrated the following: - No appreciable leukocytosis. Afebrile. Hemodynamically stable. ESR and CRP mildly elevated. - Hand-XR (10/01) significant for pronounced soft tissue edema, but no acute bony destruction, fractures, evidence of soft tissue gas, or foreign bodies. - Hand-CT (10/06) demonstrated significant soft tissue edema without evidence of osteomyelitis or abscess, and no fracture or foreign bodies - Blood cultures 10/08: Aerobic culture demonstrating coag negative staph 1 o ut of 4. At this point, likely represents contamination, but will continue to monitor. On appropriate antibiotics. - Ceftriaxone, vancomycin, and Flagyl IV for treatment of cellulitis/abscess - Orthopedics consulted: appreciate insight and recommendations - 10/08: Proceed with I&D given growth of suspected abscess. - Abscess cultures growing Staph species -- f/u sensitivities, consider ABX change thereafter Opioid Use Disorder with IV Drug Use - Patient reports significant history of opioid use, generally involving snorting heroin and fentanyl -- but also meth, too. - Last use: endorses snorting heroin and methamphetamines day of admission (10/07) ; endorses regular, every-day use before hospitalization - On 10/07, patient did demonstrate some symptoms of withdrawal -- akathisia, anxiety, nausea, increased pain - Withdrawal Benadryl 50mg IV q4h PRN for anxiety/distress, acetaminophen 650mg PO q6h PRN for pain, trazodone 15mg PO qHS to further aid with sleep/anxiety. Toradol for breakthrough pain. Continue suboxone. - Patient precontemplative on ready to change currently -- continue to discuss on a regular basis, offer aid PRN - HCV screening performed 08/22 was presumptively positive, alongside a +RNA titer - HBsAg / HBV IgM (-) in 08/2020 -- 10/08: HBsAg (-), IgM (-) - Continue Suboxone 8-2mg x 1.5 tab SL daily -- patient does normally take this at home - Per psych, PDMP demonstrates that patient has not filled Suboxone as outpatient since 04/2020. Will reach out to Dr. Escobar prior to d/c for insight (prescribing physician). Suspected Depression - Mother endorses that patient has a significant history of depression and anxiety. On the 302 petition, notes that she has - on multiple occasions - wish she was / threatening to kill herself - Per night team, patient did endorse feelings of wanting to kill herself evening of 10/07 -- on history, patient denied having ever said this. Continue regular monitoring and 1:1. - Routine discussion of symptoms and treatment options (if applicable) while here - Psych consulted and following: appreciate insight and recommendations - Patient was not able to participate in productive conversation 10/07 -- [address] Will continue to follow and determine need for inpatient psychiatric treatment once medically stable. - 10/09: Given COVID+ status, discussions to be held via phone. Patient did not answer today. Continue to promote discussions. Remain on one-to-one and should not be d/c prior to further evaluation by Psych - 302 warrant currently in effect given concerns for mental health, previous suicidality, IV drug use with recent elopement, and fear of her posing a danger to herself - One-to-one ordered and present COVID-19+ - Patient asymptomatic at present: denies constitutional and respiratory symptoms at present - Screened pre-op for I&D on 12/25, found to have a positive test result - Continue to monitor for symptom development - COVID-19 isolation precautions and protocol Dispo: Active 302 warrant with 1-to-1 in effect, Psych following. Med/surg. COVID-19 precautions. Diet: Full diet w/ safety tray + NSS w/ KCl 20 mEq @ 100cc/hr Dispo: Ambulation Code: FULL CODE (2) IV drug abuse: (3) Opioid use disorder: Admission and Anticipated Discharge Date Admission Date: October 07, 2020 Supervising Physician Co-Signing Physician Notes Attending Attestation and Progress Note: Pt seen on 2east COVID unit. I performed a thorough chart review and extensively discussed the pt's case with PGY1 Dr Yao Bateman. I agree with the components of his documentation. Patient reports that she lives with her boyfriend's parents who had COVID about 3 weeks ago. She denies fevers, chills, sweats, myalgias, headache, sore throat, cough, dyspnea, N/V/D. She does endorse runny nose & nasal congestion. No loss of taste or smell. Left hand, 2nd finger, with improved ROM and swelling s/p I&D yesterday. Tele overnight wnl. Eating well. VSS, no fever exam: gen - NAD, nontoxic, no signs of withdrawal mouth - MMM heart - tachy, s1 s2, no murmur lungs - CTA b/l abd - soft NT ND BS+ ext - no ankle edema; pulses 2+ b/l musculo - left hand in large dressing; all fingers w/ cap refill < 2 sec; 2nd digit with swelling/erythema CBC, BMP wnl blood cx's - 1/4 coag neg staph wound cx - staph species A/P: 1. POD #1 s/p I&D left 2nd finger abscess 2nd to staph species * increase rocephin to 2gm daily * cont flagyl/vanco while awaiting culture * appreciate ortho assistance * probiotics 2. +blood culture - just 1 bottle out of 4 is positive but given the clinical picture will repeat blood cx's x 2 today; cont vanco 3. COVID infection - minimal symptoms (URI symptoms only) - monitor for clinical worsening; continue airborne precautions; no indication for steroids, remdesivir, or plasma 4. tobacco dependence - nicoderm patch 5. polysubstance abuse 6. suicidal ideation - continue 1:1; 302 petition on chart; psych following 7. DVT proph - at higher risk of VTE due to #3 - add lovenox transfer to med/surg today Ryan Palmer MD Subjective Please refer to attending physician's attestation for further details Review of Systems Review of Systems: Please refer to attending physician's attestation for ROS Physical Exam Physical Exam: Please refer to attending physician's attestation for physical exam Results & Data Results & Data ([facility]) Vital Signs (Past 12 Hours) Vital Signs Temp Pulse Pulse Resp BP Pulse Ox 10/09/20 10:51 37.0 C 93 H 18 123/80 96 10/09/20 07:11 36.6 C 82 17 136/80 97 10/09/20 00:11 36.7 C 70 18 135/91 97 Resident Activity Tracking Resident Involvement: Resident Care Provided Care Provided: Adult Hospital Medicine
--- NOTE | 2020-10-09 13:21 | Electrocardiogram Report ---
Test Reason : Blood Pressure : / mmHG Vent. Rate : 093 BPM Atrial Rate : 093 BPM P-R Int : 142 ms QRS Dur : 084 ms QT Int : 366 ms P-R-T Axes : 071 077 063 degrees QTc Int : 455 ms Normal sinus rhythm Normal ECG When compared with ECG of 30-JUL-2015 20:58, No significant change was found Confirmed by Johnny Sellers ([id number]) on 10/09/2020 1:21:08 PM Referred By: REFERRED SELF Confirmed By:Johnny Sellers
--- NOTE | 2020-10-09 13:24 | Electrocardiogram Report ---
Test Reason : Blood Pressure : / mmHG Vent. Rate : 084 BPM Atrial Rate : 084 BPM P-R Int : 140 ms QRS Dur : 090 ms QT Int : 374 ms P-R-T Axes : 061 060 044 degrees QTc Int : 441 ms Normal sinus rhythm Normal ECG When compared with ECG of 08-OCT-2020 10:57, (unconfirmed) No significant change was found Confirmed by Johnny Sellers ([id number]) on 10/09/2020 1:24:09 PM Referred By: REFERRED SELF Confirmed By:Johnny Sellers
--- NOTE | 2020-10-09 17:17 | Communication Note ---
Date of Service: October 09, 2020 As patient is now COVID + interviews will be conducted via in-room bedside phone. Attempted to call patient at her bedside phone for further interview/evaluation the phone rang for several minutes without answer. Will continue to attempt to contact patient. Review of record she is on one-to-one, and still receiving active antibiotic care for hand wounds now s/p I&D. As already noted in Ms Thomas's psychiatry consultation note, and the medical progress notes, patient is on 302 warrant and should remain on one to one and should not be disharged prior to further evaluation by psychiatry that likely involves transfer under 302 to inpatient psychiatry unit once medically clear.
--- NOTE | 2020-10-09 20:17 | Billing Data ---
Date of Service October 09, 2020 Coding Level of Care Code 79947 Subseq Hosp Care Lvl 3
[2020-10-09] MEDS ORDERED: cefTRIAXone SODIUM 2,000 MG in DEXTROSE 5% 50 ML IV SCH (21:00)
[2020-10-09] MEDS ORDERED: ENOXAPARIN INJ 40 MG/0.4 ML SYR SQ ONE (21:23)
[2020-10-09] MEDS: traZODone HCL 50 MG TAB PO SCH (21:48)
[2020-10-09] MEDS: SENNA 8.6 MG TAB PO SCH (21:49)
[2020-10-09] MEDS: ADVANCED PROBIOTIC 1250 MG CAPSULE PO SCH (23:17)
[2020-10-10] MEDS: NSS + 20MEQ KCL 20 MEQ/1,000 ML BAG IV SCH ×2 (00:18→11:28)
[2020-10-10] MEDS: VANCOMYCIN HCL 1,000 MG in SODIUM CHLORIDE 0.9% 250 ML IV SCH ×4 (00:18→21:18)
[2020-10-10] MEDS: oxyCODONE HCL IR 5 MG TAB (IMMEDIATE RELEASE) PO PRN ×4 (02:29→18:18)
[2020-10-10] MEDS: metroNIDAZOLE 500 MG/100 ML BAG IV SCH ×2 (03:29→12:25)
[2020-10-10] MEDS ORDERED: VANCOMYCIN TROUGH ONE (05:30)
[2020-10-10] MEDS: DOCUSATE SODIUM 100 MG CAP PO SCH ×2 (10:12→21:18)
[2020-10-10] MEDS: MULTIVITAMIN TAB PO SCH (10:13)
[2020-10-10] MEDS: ENOXAPARIN INJ 40 MG/0.4 ML SYR SQ SCH (10:13)
[2020-10-10] MEDS: NICOTINE 14 MG/24 HR PATCH TD SCH (10:14)
[2020-10-10] MEDS: ADVANCED PROBIOTIC 1250 MG CAPSULE PO SCH (10:14)
[2020-10-10] MEDS: BUPRENORPHINE/NALOXONE 8/2 MG TAB SL SCH (10:15)
--- NOTE | 2020-10-10 11:27 | Orthopedic Progress Note ---
Date of Service October 10, 2020 Assessment & Plan (1) Opioid use disorder: (2) Cellulitis of hand: (3) MRSA (methicillin resistant Staphylococcus aureus) infection: (4) Abscess of finger of left hand: Her cultures are growing out MRSA. I discussed this with her. Unless there is other reasons to continue the Rocephin could be discontinued and she could be continued on the vancomycin. Encourage some gentle range of motion. Continue to elevate. We will change dressing and reevaluate tomorrow. I think given the severity of the infection that some short course of IVs would be appropriate prior to transitioning to oral medications. Present on Admission?: Yes Admission and Anticipated Discharge Date Admission Date: October 07, 2020 Subjective She reports feeling sore throat runny nose. She cold and cannot get warm. Her hand continues to hurt. Physical Exam Physical Exam: Capillary refill less than 2 seconds. Dressing clean and dry. There is no erythema at the fingertip. The finger itself remains a swollen proximally. She can fully extend. There is no tenderness along the flexor surface. She can bend about 25%. Neurovascular intact. Index finger left hand. Results & Data ([facility]) Laboratory Results 10/08/20 Range/Units 06:40 Hep B Core IgM Ab NON-REACTIVE (NON-REACTIVE) Microbiology 10/09/20 10:29 Aerobic Blood Culture - Preliminary Blood No growth in Aerobic bottle after 24 hours. 10/09/20 10:22 Aerobic Blood Culture - Preliminary Blood No growth in Aerobic bottle after 24 hours. Anaerobic Blood Culture - Preliminary No growth in Anaerobic bottle after 24 hours. 10/08/20 16:35 Gram Stain - Final Finger,Left Index Aerobic and Anaerobic Culture - Preliminary Staph aureus MRSA 10/06/20 23:00 Urine Culture - Final Urine,Clean Catch Three types of organisms present, all low counts probable skin dallin. No further identifications or sensitivities to follow.
[2020-10-10 11:43] LABS: Basophils # (auto) 0.01 K/uL (0-0.2); Basophils % (auto) 0.3 %; Eosinophils # (auto) 0.04 K/uL (0-0.5); Eosinophils % (auto) 1.1 %; Hematocrit (blood only) 39.3 % (37-47); Hemoglobin 13.5 g/dL (12.0-16.0); Immature Granulocytes # (auto) 0.01 K/uL (0.00-0.02); Immature Granulocytes % (auto) 0.3 %; Lymphocytes # (auto) 1.16 K/uL (1.2-3.4); Lymphocytes % (auto) 30.6 %; Mean Corpuscular Hemoglobin 30.6 pg (25-34); Mean Corpuscular Hgb Conc 34.4 g/dL (32-36); Mean Corpuscular Volume 89.1 fL (80-100); Mean Platelet Volume 8.7 fL (7.4-10.4); Monocytes # (auto) 0.01 K/uL (0.11-0.59); Monocytes % (auto) 0.3 %; Neutrophils # (auto) 2.56 K/uL (1.4-6.5); Neutrophils % (auto) 67.4 %; Platelet Count 262 K/uL (130-400); RDW Coefficient of Variation 12.6 % (11.5-14.5); RDW Standard Deviation 40.4 fL (36.4-46.3); Red Blood Count 4.41 M/uL (4.2-5.4); White Blood Count 3.79 K/uL (4.8-10.8)
[2020-10-10 12:01] LABS: BUN Creatinine Ratio 8.5 (10-20); Blood Urea Nitrogen 5 mg/dl (7-18); Calcium 8.1 mg/dl (8.5-10.1); Carbon Dioxide 26 mmol/L (21-32); Chloride 108 mmol/L (98-107); Est GFR (African American) 134.5; Glucose 118 mg/dl (70-99); Potassium 3.8 mmol/L (3.5-5.1); Sodium 139 mmol/L (136-145)
[2020-10-10 12:02] LABS: C Reactive Protein < 0.29 mg/dl (0-0.29)
[2020-10-10] MEDS ORDERED: BENZONATATE 100 MG CAPSULE PO PRN (14:10)
[2020-10-10] MEDS ORDERED: ALBUTEROL HFA 8 GM INHALER INH PRN (14:10)
--- NOTE | 2020-10-10 14:27 | Hospitalist Progress Note ---
Date of Service October 10, 2020 Assessment & Plan (1) Cellulitis of finger of left hand: Caren is a 35-year-old female with a notable history of opioid use disorder, related IV drug use, methamphetamine disuse, and depression who presented to [facility] on 10/06 for evaluation of significant swelling and redness involving the left finger, after IV drug use involving said digit, after eloping from the hospital on 10/01. Now s/p I&D by Ortho on 10/08. She is hemodynamically stable with a one-to-one as well as an active 302 warrant. Please see attending physician's attestation for more details Cellulitis of L Index Finger with Abscess - Clinically, patient initially presented to [facility] on 10/01 for evaluation of left finger edema and erythema, found to be consistent with cellulitis 2/2 IV drug use at that site. Patient subsequently eloped and re-presented on 10/06 with the same complaint. Morning of 10/08, found to have physical exam findings concerning for abscess --> s/p I&D by ortho on 10/08 - No appreciable leukocytosis. Afebrile. Hemodynamically stable. ESR and CRP mildly elevated. - Hand-XR (10/01) significant for pronounced soft tissue edema, but no acute bony destruction, fractures, evidence of soft tissue gas, or foreign bodies. - Hand-CT (10/06) demonstrated significant soft tissue edema without evidence of osteomyelitis or abscess, and no fracture or foreign bodies - Blood cultures 10/08: Aerobic culture demonstrating coag negative staph 1 out of 4. At this point, likely represents contamination, but will continue to monitor - Wound culture from I&D: MRSA, susceptible to Vanc IV as well as Doxy/Bactrim/Clinda PO - D/c'd Rocephin/Flagyl and will continue with Vancomycin IV for the next 1-2 days before transitioning to PO abx (per Ortho recs) - trend CBC daily Opioid Use Disorder with IV Drug Use - Patient reports significant history of opioid use, generally involving snorting heroin and fentanyl -- but also meth, too. - Last use: endorses snorting heroin and methamphetamines day of admission (10/07) ; endorses regular, every-day use before hospitalization - On 10/07, patient did demonstrate some symptoms of withdrawal -- akathisia, anxiety, nausea, increased pain - Withdrawal Benadryl 50mg IV q4h PRN for anxiety/distress, acetaminophen 650mg PO q6h PRN for pain, trazodone 15mg PO qHS to further aid with sleep/an xiety. Toradol for breakthrough pain. Continue suboxone. - Patient precontemplative on ready to change currently -- continue to discuss on a regular basis, offer aid PRN - HCV screening performed 08/22 was presumptively positive, alongside a +RNA titer - HBsAg / HBV IgM (-) in 08/2020 -- 10/08: HBsAg (-), IgM (-) - Continue Suboxone 8-2mg x 1.5 tab SL daily -- patient does normally take this at home - Per psych, PDMP demonstrates that patient has not filled Suboxone as outpatient since 04/2020 Suspected Depression - Mother endorses that patient has a significant history of depression and anxiety. On the 302 petition, notes that she has - on multiple occasions - wish she was / threatening to kill herself - Per night team, patient did endorse feelings of wanting to kill herself evening of 10/07 -- on history, patient denied having ever said this. Continue regular monitoring and 1:1. - Routine discussion of symptoms and treatment options (if applicable) while here - Psych consulted and following: appreciate insight and recommendations - Patient was not able to participate in productive conversation 10/07 -- [address] Will continue to follow and determine need for inpatient psychiatric treatment once medically stable. - 10/09: Given COVID+ status, discussions to be held via phone. Patient did not answer today. Continue to promote discussions. Remain on one-to-one and should not be d/c prior to further evaluation by Psych - 302 warrant currently in effect given concerns for mental health, previous suicidality, IV drug use with recent elopement, and fear of her posing a danger to herself - One-to-one ordered and present COVID-19+ - Patient asymptomatic at present: denies constitutional and respiratory symptoms at present - Screened pre-op for I&D on 10/08, found to have a positive test result - Continue to monitor for symptom development - COVID-19 isolation precautions and protocol FEN/GI: Full diet w/ safety tray + NSS w/ KCl 20 mEq @ 100cc/hr DVT ppx: Ambulation Code: Full code Dispo: Med/surg, active 302 warrant with 1-to-1 in effect, Psych following. COVID-19 precautions. (2) IV drug abuse: (3) Opioid use disorder: Admission and Anticipated Discharge Date Admission Date: October 07, 2020 Supervising Physician Co-Signing Physician Notes Attending Attestation and Progress Note: Pt seen on [facility] COVID unit. I performed a thorough chart review and extensively discussed the pt's case with PGY1 Dr Tremaine Collins. I agree with the components of his documentation. Patient feels poorly today. Sweats at night. Fever/chills this afternoon. Coughing. Chest congestion. A little central chest tightness. Not worsened by laying flat. Still no loss of taste or smell. Left hand, 2nd finger, with improved ROM and swelling. Denies diarrhea. Eating well. VSS, Tm 37.7 exam: gen - looks ill today; no signs of withdrawal mouth - MMM heart - RRR, s1 s2, no murmur lungs - CTA b/l - no rales or wheeze abd - soft NT ND BS+ ext - no ankle edema; pulses 2+ b/l musculo - left hand in dressing; all fingers w/ cap refill < 2 sec; 2nd digit erythema improved from yesterday blood cx's - 10/18 coag neg staph wound cx - MRSA A/P: 1. POD #2 s/p I&D left 2nd finger abscess 2nd to MRSA * stop IV rocephin and flagyl * cont IV vancomycin * appreciate ortho assistance * probiotics * dressing changes, etc 2. +blood culture - just 1 bottle out of 4 is positive for coag negative staph from admission. Repeat blood cultures negative. This likely represents contamination. 3. COVID infection - mild disease at present; monitor for clinical worsening; continue airborne precautions; no indication for steroids, remdesivir, or plasma. EKG without evidence of pericarditis. Check dimer and trop in am. O2 sats wnl. 4. tobacco dependence - nicoderm patch 5. polysubstance abuse - counseling center manager to quit. 6. suicidal ideation - continue 1:1; 302 petition on chart; psych following; no further thoughts of dying or suicidal ideation. 7. DVT proph - at higher risk of VTE due to #3 - continue lovenox Ryan Siuta MD Subjective Please refer to attending physician's attestation for further details Review of Systems Review of Systems: Please refer to attending physician's attestation for ROS Results & Data Results & Data ([facility]) Vital Signs (Past 12 Hours) Vital Signs Temp Pulse Resp BP Pulse Ox 10/10/20 14:14 37.7 C H 97 H 18 126/77 98 Resident Activity Tracking Resident Involvement: Resident Care Provided Care Provided: Adult Hospital Medicine
[2020-10-10] MEDS ORDERED: VANCOMYCIN HCL 1,000 MG in SODIUM CHLORIDE 0.9% 250 ML IV SCH (16:00)
[2020-10-10] MEDS: guaiFENesin 600 MG TABCR PO SCH ×2 (16:23→21:17)
[2020-10-10] MEDS: KETOROLAC TROMETHAMINE 15 MG/ML VIAL IV SCH ×2 (18:18→23:34)
--- NOTE | 2020-10-10 18:19 | Psychiatric Progress Note ---
Date of Service October 10, 2020 Impression / Recommendations Impression The patient is a 35-year-old female with a remote history of formal mental health treatment but none into her adulthood after the age of 17. She does admit to significant depression in the last year and irritability denies anxiety. She does admit to relapse to substances also in the last year to include fentanyl, heroin and meth amphetamine. She further endorses significant stressors to include 2 on adjudicated DUIs, homelessness and strained relationship with her family based on her choices. She has a family history of completed suicide in the maternal aunt, , remote prior attempts at suicide as a teen, pain, substance use disorder severe, no outpatient medical supports, unstable social supports. The patient denies making suicidal statements and denies recent suicide attempts as claimed by her mother in the 302 petition. However given her multiple risk factors her closed nature and not volunteering information in the history until I prompted her with specific questions makes me wonder that the patient is being guarded and vague. I am concerned about her safety and do believe she needs to remain on one-to-one at this time. Over time I will will help to develop rapport with her which may be hard through telephone consultation to obtain further history and consider treatment planning. RECOMMENDATIONS: 10/07 - Psychiatric consultation was requested by hospitalist service to evaluate as she is on a 302 warrant - documented history of IV drug use and attempts to elope resulting in 1:1 sitter in room. - Pt is not able to participate in productive conversation at this time due to level of sedation. [address], and patient should not be permitted to leave the hospital AMA until she is medically cleared and decision is rendered regarding need for inpatient psychiatric treatment, which of course cannot be fully assessed in patient's current state. - PDMP query reveals that the patient last filled buprenorphine-naloxone 8- 2mg SL on 04/21/2020 - a 30 day supply of #90 tabs. With this documentation, it is unlikely the patient is still actively prescribed the medication. Would encourage primary team to request records from Dr. Escobar to determine status of this prescribing relationship. - Collateral obtained from mother suggests a significant history of substance abuse with increased use in the past few several months. The patient also had a remote history of psychiatric treatment (inpatient and residential/placement) as a child/teen and mother reports increased depressive symptoms as well as frequent statements of wanting to or threats to harm herself. Under [place] mental health laws, patients are not able to be involuntarily committed to inpatient treatment facilities for substance abuse concerns alone; however, there are reports from mother that suggest psychiatric symptoms as well. We will require additional collateral and conversation with the patient in order to determine treatment recommendations on discharge. In the interim, patient can be held on 302 warrant for this information to be obtained and appropriate recommendations to be rendered. - We will attempt to re-evaluate the patient when she is able to participate in conversation. Until then, please reach out to our service with any additional questions or updates. 10/10 Diagnosis: Depression NOS rule out substance-induced mood disorder, rule out major depressive disorder, severe without psychotic features; heroin and fentanyl fentanyl dependence rule out impending withdrawal; methamphetamine dependence -Patient ended conversation before we could discuss possible treatment of her depression. Future conversations help to offer discussion about medications. - Please keep her on one-to-one at this time she will need evaluated as she approaches medical clearance to determine if ongoing 302 involuntary hospitalization at a mental health unit is indicated. -I placed a taper schedule for her Suboxone as she does not want to be on it I do not recommend intermittent dosing for her so I scheduled it for 1 tablet for October 11 and October 12, half tablet for October 13 and October 14 then stop -And related fashion we would like to speak with the primary team regarding her pain medications with a plan to slowly decrease the schedule as well as not to prompt her to go into abrupt withdrawal. Meaning we should continue to treat her pain as they would do post surgery but have a mindful decrease in the frequency or milligram dosing that tapers down over several days to a week. -If she does begin to experience opiate withdrawal it would be appropriate to initiate an opiate withdrawal protocol with clonidine and Lomotil to help ease symptoms. Interval History Identifying Information The patient is a 35-year-old female admitted medically on October 06, 2020 with reported left hand/finger swelling and pain. She has a known history of IV drug use however her mother verbalize concerns related to her mental health as well now a box a 302 warrant. Chief Complaint "My mom told somebody I was suicidal". Subjective Subjective Patient's record was reviewed. I was a part of the initial attempt at consultation on the when the patient was too somnolent to participate but history was reviewed from the record and from patient's mother and the 302 on file. I called the patient in her room on 3 . the patient was willing to speak. She states that she is in the hospital for infection of her hand and now has had surgery. When I asked her about her mood and anxiety she stated "my mom tells people that I am suicidal." The patient does state that she has felt depressed "a long time." She rates her mood as a 0 out of 10 (0 worst, 10 best). When asked how long she is been feeling that way she states "at least since March." When she is depressed she has increased desire to sleep low interest low energy. However she is adamant that she denies feeling hopeless or helpless or worthless and denies any form of suicidal attempts or ideation "since I was a kid." She does report having problems in her childhood, but is very guarded and vague about any concerns regarding her mood and anxiety into adulthood. She does state that she is "irritable all the time." She states that approximately a year ago she decided to leave her children's father "in my family did not like my choice of boyfriend." Ultimately her boyfriend went to half-way for findings. He remains there. She was living with him but apparently since May has been staying at various friends houses. 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 And ask how she pays for her housing and food and drugs she states "I have a car so we kind of trade, and my friends take care of my food." She does states she relapsed to substances to include fentanyl, heroin and meth about a year ago. She does have 2 DUIs in the last month that have yet to be adjudicated. She stated prior to this she "had not been in trouble for a long time" prior legal issues included driving without a license. Prior to that she had been clean for approximately 5 years. She denies any particular supports to accomplish that sobriety other than "life was different than." Only when asked overtly about prior history of Suboxone she states that she did see Itz Bellamy is eating for Suboxone last in the summer 2019. She states she did not tell him she relapsed but did not return because she relapsed. He has not been routinely on Suboxone since then. She does know what is being offered in the hospital she states "I do not want to take it because it so hard to come off of so I have been refusing it." I started talking to her about a taper schedule she states "but I want it there when I feel he need it." I spoke with her briefly about using the substance to change the feeling in her body versus creating consistent states and so I would recommend we either use it daily and consistently, or a slow taper schedule and not in an as needed fashion because that is reinforcing that a physical symptom prompt dosing. She states she understands but is quite ambivalent to this idea. She is aware that she is getting troxidone for her postsurgical pain. I was very clear that we would have to talk with the surgical and medical staff about a planned decrease in that as to help her not be at risk for acute withdrawal or abrupt relapse. I began to talk to the patient about concerns about her safety prior to admission to include that at times she was quoted as saying that she wanted to or wishing she were . She states that these things are made up. When I begin to tell her it was important for me to understand things she might have set her done and explained that she is in the hospital for her medical concerns but under 302 box a warrant that we will prompt mental health treatment after her medical stay if psychiatry deems still indicated the patient becomes upset and states "that shit.' She then hangs up the phone. I did call 3 E. back to relay that the patient hung up and was agitated. Because she remains on one-to-one and they do not allow a phone in that situation that they may want to retrieve the phone. I noted that psychiatry would continue to try to interact with Caren to understand further. The nurse affirmed understanding and willingness to check on her. Procedures Performed Operation Date: 10/08/20 13:00 Actual Procedures p Incision and Drainage Left Finger(Left) - Nate Brady MD Physical Exam Psychiatric Orientation: alert and oriented x 3 I am not able to evaluate her appearance as this interaction was done by phone Phone evaluation Calm Even, tone even at the end when she seemed upset. Mood: + depressed mood Thought Process: goal directed thought process Patient is very closed does not share information until prompted by this provider about things such as homelessness prior treatment and mental health endorsing depression and difficult life over the last year, reports about substance use in an different manner, clearly upset about being here under 302 warrant Suicidal Thoughts: denies suicidal thoughts Homicidal Thoughts: denies homicidal thoughts Hallucinations: no auditory hallucinations and no visual hallucinations Cognition: recent memory grossly intact Estimated Intelligence: average estimated intelligence Insight: + limited insight Judgement: + limited judgement Vital Signs (Past 24 Hours) Last Vital Signs Temp 37.1 C 10/10/20 15:02 Pulse 90 10/10/20 15:02 Resp 16 10/10/20 15:02 BP 120/77 10/10/20 15:02 Pulse Ox 97 10/10/20 15:02 Results & Data ([facility]) Laboratory Results Laboratory Results - last 24 hr 10/08/20 10/10/20 10/10/20 06:40 11:20 11:20 WBC 3.79 L RBC 4.41 Hgb 13.5 Hct 39.3 MCV 89.1 MCH 30.6 MCHC 34.4 RDW Std Deviation 40.4 RDW Coeff of Peyton 12.6 Plt Count 262 MPV 8.7 Immature Gran % (Auto) 0.3 Neut % (Auto) 67.4 Lymph % (Auto) 30.6 [place] % (Auto) 0.3 Eos % (Auto) 1.1 Baso % (Auto) 0.3 Neut # (Auto) 2.56 Lymph # (Auto) 1.16 L [place] # (Auto) 0.01 L Eos # (Auto) 0.04 Baso # (Auto) 0.01 Immature Gran # (Auto) 0.01 ESR Sodium 139 Potassium 3.8 Chloride 108 H Carbon Dioxide 26 Anion Gap 5.0 BUN 5 L Creatinine 0.62 Est Cr Clr Drug Dosing 122.0 Est GFR ( Amer) 134.5 Est GFR (Non-Af Amer) 116.0 BUN/Creatinine Ratio 8.5 L Glucose 118 H Calcium 8.1 L C-Reactive Protein < 0.29 Hep B Core IgM Ab NON-REACTIVE 10/10/20 11:20 WBC RBC Hgb Hct MCV MCH MCHC RDW Std Deviation RDW Coeff of Peyton Plt Count MPV Immature Gran % (Auto) Neut % (Auto) Lymph % (Auto) [place] % (Auto) Eos % (Auto) Baso % (Auto) Neut # (Auto) Lymph # (Auto) [place] # (Auto) Eos # (Auto) Baso # (Auto) Immature Gran # (Auto) ESR 19 Sodium Potassium Chloride Carbon Dioxide Anion Gap BUN Creatinine Est Cr Clr Drug Dosing Est GFR ( Amer) Est GFR (Non-Af Amer) BUN/Creatinine Ratio Glucose Calcium C-Reactive Protein Hep B Core IgM Ab Current Inpatient Medications Current Inpatient Medications: Current Inpatient Medications Acetaminophen (Acetaminophen 325 Mg Tab) 650 mg PO Q4H PRN PRN Reason: pain/fever Stop: 11/06/20 04:00 Last Admin: 10/07/20 09:10 Dose: 650 mg Documented by: Albuterol (Albuterol Hfa 8 Gm Inhaler) 2 puffs INH Q4H PRN PRN Reason: cough/wheeze/dyspnea Stop: 11/09/20 14:09 Benzonatate (Benzonatate 100 Mg Capsule) 100 mg PO Q8H PRN PRN Reason: Cough Stop: 11/09/20 14:09 Bisacodyl (Bisacodyl 10 Mg Supp) 10 mg PA DAILY PRN PRN Reason: Constipation Stop: 11/07/20 18:19 Buprenorphine/Naloxone (Buprenorphine/Naloxone 8/2 Mg Tab) 1.5 tab SL DAILY [facility] Stop: 11/06/20 08:59 Last Admin: 10/10/20 10:15 Dose: Not Given Documented by: Docusate Sodium (Docusate Sodium 100 Mg Cap) 100 mg PO BID [facility] Stop: 11/07/20 20:59 Last Admin: 10/10/20 10:12 Dose: Not Given Documented by: Enoxaparin Sodium (Enoxaparin Inj 40 Mg/0.4 Ml Syr) 40 mg SQ QAM [facility] Stop: 11/09/20 08:59 Last Admin: 10/10/20 10:13 Dose: Not Given Documented by: Guaifenesin (Guaifenesin 600 Mg Tabcr) 1,200 mg PO Q12 [facility] Stop: 11/09/20 14:14 Last Admin: 10/10/20 16:23 Dose: 1,200 mg Documented by: Hydromorphone HCl (Hydromorphone Inj 0.5 Mg/0.5 Ml Syr) 0.5 mg IV Q4H PRN PRN Reason: Pain or Pre PT Stop: 10/22/20 18:19 Potassium Chloride/Sodium Chloride (Normal Saline W/20 Meq Kcl) 20 meq in 1,000 mls @ 50 mls/hr IV .Q20H [facility] Stop: 11/06/20 04:00 Last Infusion: 10/10/20 14:38 Dose: 50 mls/hr Documented by: Vancomycin HCl 1,000 mg/ (Sodium Chloride) 270 mls @ 200 mls/hr IV Q6H [facility]; Protocol Stop: 10/17/20 15:59 Last Admin: 10/10/20 16:23 Dose: 200 mls/hr Documented by: Ketorolac Tromethamine (Ketorolac Tromethamine 15 Mg/Ml Vial) 15 mg IV Q6H [facility] Stop: 10/11/20 12:01 Lactobacillus Acidoph/Casei/Rhamnos (Advanced Probiotic 1250 Mg Capsule) 2 cap PO DAILY [facility] Stop: 11/08/20 21:22 Last Admin: 10/10/20 10:14 Dose: Not Given Documented by: Magnesium Hydroxide (Magnesium Hydroxide Susp 30 Ml Udc) 30 ml PO Q6H PRN PRN Reason: Constipation Stop: 11/07/20 18:19 Miscellaneous (Remove Nicoderm Patch) 1 ea N/A DAILY@0859 [facility] Stop: 11/08/20 08:58 Last Admin: 10/10/20 10:15 Dose: 1 ea Documented by: Miscellaneous Information (Vancomycin Consult Active) 1 ea N/A UD PRN PRN Reason: Consult Stop: 11/06/20 04:00 Multivitamins (Multivitamin Tab) 1 tab PO QAM [facility] Stop: 11/08/20 08:59 Last Admin: 10/10/20 10:13 Dose: Not Given Documented by: Naloxone HCl (Naloxone Hcl 0.4 Mg/1 Ml Vial/Carp) 0.1 mg IV Q5M PRN PRN Reason: Oversedation/Resp Depression Stop: 11/07/20 18:19 Nicotine (Nicotine 14 Mg/24 Hr Patch) 14 mg TD QAM [facility] Stop: 11/08/20 08:59 Last Admin: 10/10/20 10:14 Dose: Not Given Documented by: Ondansetron HCl (Ondansetron Inj 2 Mg/Ml 2 Ml Vial) 4 mg IV Q6H PRN PRN Reason: Nausea Stop: 11/06/20 04:00 Ondansetron HCl (Ondansetron Inj 2 Mg/Ml 2 Ml Vial) 4 mg IV Q6H PRN PRN Reason: Nausea And Vomiting Stop: 11/07/20 18:19 Oxycodone HCl (Oxycodone Hcl Ir 5 Mg Tab (Immediate Release)) 5 - 10 mg PO Q4H PRN PRN Reason: Pain or Pre PT Stop: 10/22/20 18:19 Last Admin: 10/10/20 12:24 Dose: 10 mg Documented by: Sennosides (Senna 8.6 Mg Tab) 17.2 mg PO [facility] Stop: 11/07/20 20:59 Last Admin: 10/09/20 21:49 Dose: Not Given Documented by: Trazodone HCl (Trazodone Hcl 50 Mg Tab) 50 mg PO [facility] Stop: 11/06/20 20:59 Last Admin: 10/09/20 21:48 Dose: 50 mg Documented by:
[2020-10-10] MEDS: traZODone HCL 50 MG TAB PO SCH (21:17)
[2020-10-10] MEDS: SENNA 8.6 MG TAB PO SCH (21:18)
[2020-10-11] MEDS: NSS + 20MEQ KCL 20 MEQ/1,000 ML BAG IV SCH (03:54)
[2020-10-11] MEDS: VANCOMYCIN HCL 1,000 MG in SODIUM CHLORIDE 0.9% 250 ML IV SCH ×4 (03:55→23:42)
[2020-10-11] MEDS: KETOROLAC TROMETHAMINE 15 MG/ML VIAL IV SCH ×2 (05:25→12:13)
[2020-10-11 07:36] LABS: Amphetamine Urine, Confirm 5310 ng/mL (<250); Codeine Urine NEGATIVE ng/mL (<50); Hydrocodone Urine NEGATIVE ng/mL (<50); Hydromor Urine NEGATIVE ng/mL (<50); MDA negative; MDEA negative; MDMA (Ecstasy) Urine, Confirm negative; Methamphetamine, Ur Confirm >15000 ng/mL (<250); Morphine Urine 2670 ng/mL (<50); Norhydrocodone Conf Ur NEGATIVE ng/mL (<50); Noroxycodone Urine NEGATIVE ng/mL (<50); Oxycodone Urine NEGATIVE ng/mL (<50); Oxymorph Urine NEGATIVE ng/mL (<50)
[2020-10-11] MEDS: oxyCODONE HCL IR 5 MG TAB (IMMEDIATE RELEASE) PO PRN ×2 (08:29→16:36)
[2020-10-11] MEDS: guaiFENesin 600 MG TABCR PO SCH ×2 (08:30→21:58)
[2020-10-11] MEDS: MULTIVITAMIN TAB PO SCH (08:31)
[2020-10-11] MEDS: DOCUSATE SODIUM 100 MG CAP PO SCH ×2 (08:31→22:02)
[2020-10-11] MEDS: ENOXAPARIN INJ 40 MG/0.4 ML SYR SQ SCH (08:31)
[2020-10-11] MEDS: BUPRENORPHINE/NALOXONE 8/2 MG TAB SL SCH (08:31)
[2020-10-11] MEDS: ADVANCED PROBIOTIC 1250 MG CAPSULE PO SCH (08:32)
[2020-10-11] MEDS: NICOTINE 14 MG/24 HR PATCH TD SCH (08:33)
[2020-10-11] MEDS ORDERED: VANCOMYCIN TROUGH ONE (09:30)
--- NOTE | 2020-10-11 10:06 | Billing Data ---
Date of Service October 10, 2020 Coding Level of Care Code 84576 Subseq Hosp Care Lvl 3
[2020-10-11 10:14] LABS: Basophils # (auto) 0.01 K/uL (0-0.2); Basophils % (auto) 0.3 %; Eosinophils # (auto) 0.08 K/uL (0-0.5); Eosinophils % (auto) 2.2 %; Hematocrit (blood only) 40.7 % (37-47); Hemoglobin 14.2 g/dL (12.0-16.0); Immature Granulocytes # (auto) 0.03 K/uL (0.00-0.02); Immature Granulocytes % (auto) 0.8 %; Lymphocytes # (auto) 0.88 K/uL (1.2-3.4); Lymphocytes % (auto) 24.2 %; Mean Corpuscular Hemoglobin 30.9 pg (25-34); Mean Corpuscular Hgb Conc 34.9 g/dL (32-36); Mean Corpuscular Volume 88.7 fL (80-100); Mean Platelet Volume 8.9 fL (7.4-10.4); Monocytes # (auto) 0.82 K/uL (0.11-0.59); Monocytes % (auto) 22.6 %; Neutrophils # (auto) 1.81 K/uL (1.4-6.5); Neutrophils % (auto) 49.9 %; Platelet Count 251 K/uL (130-400); RDW Coefficient of Variation 12.7 % (11.5-14.5); RDW Standard Deviation 40.4 fL (36.4-46.3); Red Blood Count 4.59 M/uL (4.2-5.4); White Blood Count 3.63 K/uL (4.8-10.8)
[2020-10-11 10:33] LABS: BUN Creatinine Ratio 10.9 (10-20); Blood Urea Nitrogen 8 mg/dl (7-18); Calcium 8.3 mg/dl (8.5-10.1); Carbon Dioxide 27 mmol/L (21-32); Chloride 107 mmol/L (98-107); Creatinine Clr Calc Pharmacy 103.6 ml/min; Est GFR (African American) 122.8; Glucose 155 mg/dl (70-99); Potassium 3.5 mmol/L (3.5-5.1); Sodium 139 mmol/L (136-145)
[2020-10-11 10:37] LABS: D Dimer 720 ug/L FEU (0-500); Troponin I < 0.015 ng/ml (0-0.045)
--- NOTE | 2020-10-11 11:06 | Communication Note ---
Date of Service: October 11, 2020 Patient's case was reviewed and discussed during morning report with psychiatric nurse liaison and supervising psychiatrist. Psychiatric recommendations offered this weekend were reviewed as well. It was suggested that patient be tapered off Suboxone, as patient had reported she was not interested in taking the medication. Although this suggestion is reasonable, the patient has only taken the medication once in the last 5 days and stated she was not regularly using the medication prior to admission. Patient's refusal to comply with recommended taper has led to new recommendation that the medication simply be discontinued, as she has not taken the medication in the last two days. This was discussed with the hospitalist attending, who was in agreement. Agree with recommendations to appropriately treat post-surgical pain; however, with awareness of suggestion to slowly taper pain medications with heightened sensitivity for possible withdrawal symptoms. Seen psychiatric progress note from 10/10 to review these recommendations in greater detail.
--- NOTE | 2020-10-11 11:13 | Pharmacy Report ---
Pharmacy Abx Dose Short Note - Date of Service October 11, 2020 - Assessment & Plan Assessment 35 year old F receiving Vancomcyin for treatment of left index finger cellulitis/abscess * Day #5 of antimicrobial therapy * Underwent I&D of left index finger on 10/08 * 1/ bottles from blood cultures is growing CoNS - likely contaminate * Left index finger culture from OR grew MRSA - Sensitive to Clindamycin, Daptomycin, Rifampin, Bactrim, Vancomycin (AAKASH = 1) * If extended course of IV antibiotics is warranted, then would recommend Daptomycin 6 mg/kg (based on IBW) IV every 24 hours as an outpatient Plan Vancomycin * Trough level of 16.2 mcg/mL is therapeutic * Continue dose of 1000 mg IV every 6 hours * Goal trough level: 15 to 20 mcg/mL * Trough level ordered for Sunday morning (10/13) Pharmacy will continue to follow and will adjust dose/frequency as necessary. Thank you.
--- NOTE | 2020-10-11 18:25 | Electrocardiogram Report ---
Test Reason : Blood Pressure : / mmHG Vent. Rate : 089 BPM Atrial Rate : 089 BPM P-R Int : 144 ms QRS Dur : 086 ms QT Int : 366 ms P-R-T Axes : 062 030 031 degrees QTc Int : 445 ms Normal sinus rhythm Possible Left atrial enlargement Borderline ECG When compared with ECG of 08-OCT-2020 11:56, T wave inversion now evident in Anterior leads Confirmed by Karl Mercado [id number] on 10/11/2020 6:25:24 PM Referred By: REFERRED SELF Confirmed By:Sebastian Mercado
--- NOTE | 2020-10-11 18:34 | Progress Notes ---
DATE: 10/11/2020 She is resting comfortably in bed in the COVID unit. No recent temperatures. Vitals are stable. White count today is 4, dressing is changed. There is no fluctuance. Only a trace bit of serous drainage, no purulence. Swelling and erythema are markedly improved. There is some dried skin throughout the hand. She has full extension and no signs of flexor tenosynovitis. She can flex about 50%. A new dressing is applied. Work on some range of motion. Continue to elevate. I spoke with Dr. Palmer and I think continuing with another day or 2 of IV vancomycin would be reasonable and then transitioning over to an oral agent. We will continue to monitor.
[2020-10-11] MEDS: SENNA 8.6 MG TAB PO SCH (21:58)
[2020-10-11] MEDS: traZODone HCL 50 MG TAB PO SCH (22:02)
--- NOTE | 2020-10-12 01:18 | Hospitalist Progress Note ---
Date of Service October 11, 2020 Assessment & Plan (1) Abscess of finger of left hand: POD #3 s/p I/D of LEFT 2nd finger abscess by Dr Brady. Culture - MRSA. Rocephin/flagyl have been stopped. Remains on IV vancomycin- continue such. Overall the finger is improving. Continue IV vancomycin another 1-2 days, then transition to PO bactrim. (2) Cellulitis of hand: Left hand Improved Cont IV vanco (3) IV drug abuse: Cessation highly recommended of course (4) COVID-19 virus infection: Positive test on 10/08/20. Initially had minimal symptoms - sore throat, congestion. Yesterday with fever/chills/sweats/cough/chest congestion. O2 sats wnl. Patient looks overall better today. No indication for dexamethasone, plasma or remdesivir. Cont symptomatic care. EKG without signs of pericarditis. Dimer mildly elevated but not alarming. Troponin negative. (5) MRSA cellulitis: Left 2nd finger. Contact precautions. (6) Tobacco dependence: Nicoderm patch. Cessation encouraged. (7) Positive blood culture: 1/4 cultures from admission + coag negative staph. Repeat blood cx's thus far negative. Suspect contamination but the IV vanco for MRSA will cover this. (8) DVT prophylaxis: lovenox 40mg daily Admission and Anticipated Discharge Date Admission Date: October 07, 2020 Subjective patient feeling better today than yesterday. no fever or chills today. having sweats at night-time. cough persists but no dyspnea or chest pain this am. left hand pain still present but mobility/ROM improved. no diarrhea. denies any suicidal ideation or intent. no loss of taste or smell. patient reports that at discharge she will return living w/ her boyfriend. Review of Systems Constitutional: + fever (Yesterday - none today) and + fatigue; no body aches, no weakness and no anorexia Ear, Nose, Mouth, Throat: + nasal congestion and + sore throat Respiratory: + cough; no dyspnea and no pain on inspiration Cardiovascular: no chest pain Gastrointestinal: no vomiting and no diarrhea/loose stools Physical Exam Constitutional: no acute distress and no altered mental status looks much better than yesterday ENMT: external ear and nose normal, oropharynx normal Neck: left EJ IV clean Respiratory: normal respiratory effort, lungs clear to auscultation Cardiovascular: Rate/Rhythm: regular rate and regular rhythm Heart Sounds: normal S1 and normal S2; no murmur Vessels: posterior tibial pulses present and dorsalis pedis pulses present; no JVD Extremities: no edema Gastrointestinal (Abdomen): normal bowel sounds, soft, nontender, no hepatosplenomegaly Musculoskeletal: left hand dressings removed; Dr Brady present; left 2nd finger gross swelling overall improved; minimal amount of purulent material exuded from left 2nd finger; sutures intact; peeling of skin on finger present; mild tenderness to palpation; passive and active ROM decreased from normal but overall improving; no tenderness over any tendons Results & Data Results & Data ([facility]) Vital Signs (Past 12 Hours) Vital Signs Temp Pulse Resp BP Pulse Ox 10/11/20 22:56 37.1 C 76 16 116/78 98 10/11/20 15:08 37.2 C 82 16 127/84 98 Laboratory Results Laboratory Results - last 24 hr 10/06/20 10/11/20 10/11/20 23:00 09:26 09:26 WBC 3.63 L RBC 4.59 Hgb 14.2 Hct 40.7 MCV 88.7 MCH 30.9 MCHC 34.9 RDW Std Deviation 40.4 RDW Coeff of Peyton 12.7 Plt Count 251 MPV 8.9 Immature Gran % (Auto) 0.8 Neut % (Auto) 49.9 Lymph % (Auto) 24.2 [place] % (Auto) 22.6 Eos % (Auto) 2.2 Baso % (Auto) 0.3 Neut # (Auto) 1.81 Lymph # (Auto) 0.88 L [place] # (Auto) 0.82 H Eos # (Auto) 0.08 Baso # (Auto) 0.01 Immature Gran # (Auto) 0.03 H D-Dimer Sodium 139 Potassium 3.5 Chloride 107 Carbon Dioxide 27 Anion Gap 5.0 BUN 8 Creatinine 0.73 Est Cr Clr Drug Dosing 103.6 Est GFR ( Amer) 122.8 Est GFR (Non-Af Amer) 106.0 BUN/Creatinine Ratio 10.9 Glucose 155 H Calcium 8.3 L Troponin I < 0.015 Vancomycin Trough U Codeine Confrm GC/MS NEGATIVE Ur Morphine (GC/MS) 2670 H Ur Hydrocodone (GC/MS) NEGATIVE Ur Norhydrocodone NEGATIVE Ur Noroxycodone NEGATIVE Urine Oxycodone (GC/MS) NEGATIVE U Oxymorphone GC/MS NEGATIVE Ur Hydromorphone (GC/MS) NEGATIVE U Amphetamines Confirm 5310 H U Methamphetamin Confrm >12193 H Urine MDEA negative MDMA negative Urine MDMA negative Drug Screen Comment SEE NOTE 10/11/20 10/11/20 09:26 09:26 WBC RBC Hgb Hct MCV MCH MCHC RDW Std Deviation RDW Coeff of Pey[place] Plt Count MPV Immature Gran % (Auto) Neut % (Auto) Lymph % (Auto) [place] % (Auto) Eos % (Auto) Baso % (Auto) Neut # (Auto) Lymph # (Auto) [place] # (Auto) Eos # (Auto) Baso # (Auto) Immature Gran # (Auto) D-Dimer 720 H* Sodium Potassium Chloride Carbon Dioxide Anion Gap BUN Creatinine Est Cr Clr Drug Dosing Est GFR ( Amer) Est GFR (Non-Af Amer) BUN/Creatinine Ratio Glucose Calcium Troponin I Vancomycin Trough 16.2 U Codeine Confrm GC/MS Ur Morphine (GC/MS) Ur Hydrocodone (GC/MS) Ur Norhydrocodone Ur Noroxycodone Urine Oxycodone (GC/MS) U Oxymorphone GC/MS Ur Hydromorphone (GC/MS) U Amphetamines Confirm U Methamphetamin Confrm Urine MDEA MDMA Urine MDMA Drug Screen Comment repeat blood cultures negative PG Care Time/CCT Total # of Minutes Spent Total Time Spent with Patient: Total time spent is greater than 50% in coordination of care (as documented) at patient's floor/unit and/or counseling patient: Coding Level of Care Code 94984 Subseq Hosp Care Lvl 3 Diagnoses Abscess of finger of left hand L02.512 Cellulitis of hand L03.119 IV drug abuse F19.10 COVID-19 virus infection U07.1 MRSA cellulitis L03.90; B95.62 Tobacco dependence F17.200 Positive blood culture R78.81 DVT prophylaxis Z29.9
[2020-10-12] MEDS: VANCOMYCIN HCL 1,000 MG in SODIUM CHLORIDE 0.9% 250 ML IV SCH ×2 (04:04→09:34)
[2020-10-12] MEDS: oxyCODONE HCL IR 5 MG TAB (IMMEDIATE RELEASE) PO PRN ×2 (06:35→15:56)
[2020-10-12] MEDS: DOCUSATE SODIUM 100 MG CAP PO SCH (09:32)
[2020-10-12] MEDS: ENOXAPARIN INJ 40 MG/0.4 ML SYR SQ SCH (09:33)
[2020-10-12] MEDS: ACETAMINOPHEN 325 MG TAB PO PRN (09:35)
[2020-10-12] MEDS: ADVANCED PROBIOTIC 1250 MG CAPSULE PO SCH (09:36)
[2020-10-12] MEDS: guaiFENesin 600 MG TABCR PO SCH (09:37)
[2020-10-12] MEDS: NICOTINE 14 MG/24 HR PATCH TD SCH (09:37)
[2020-10-12] MEDS: MULTIVITAMIN TAB PO SCH (09:37)
[2020-10-12] MEDS ORDERED: SULFAMETHOXAZOLE/TRIMETHOPRIM DS 800/160MG TAB PO ONE (13:13)
[2020-10-12] MEDS ORDERED: FAMOTIDINE 20 MG TAB PO ONE (16:07)
--- NOTE | 2020-10-12 16:55 | Discharge Summary ---
Date of Service October 12, 2020 Admission HPI Per Admitting Provider The patient is a 35-year-old female with a past medical history including IV drug abuse and fracture of right distal radius, who was initially admitted to [facility] for hand cellulitis on 10/01/2020, and eloped on 10/02/[address] IV still in place. She presents to the emergency department with the same complaint this evening. CT scan of hand was negative for osteomyelitis, orthopedic surgery was consulted over the phone, and the patient was placed in a 302 and sent to the medicine service for admission. Discharge Data Allergies Allergy/AdvReac Type Severity Reaction Status Date / Time Penicillins Allergy Intermediate HIVES Verified 10/06/20 23:41 Consultations 10/07/20 02:24 ED Decision to Admit Stat 10/07/20 04:01 Consult Psychiatry Routine 10/08/20 18:20 Consult Case Management - Discharge Planning Routine Procedures Performed Operation Date: 10/08/20 13:00 Actual Procedures p Incision and Drainage Left Finger(Left) - Nate Brady MD Ordered Studies 10/06/20 23:22 CT hand LT w con Urgent Discharge Plan Discharge Items Patient Disposition: Home - Self-Care Reason For Visit: HAND CELLULITIS Discharge Diagnosis: 1. left 2nd finger MRSA abscess with need for drainage/surgery by Dr Brady 2. left hand cellulitis 3. COVID-19 infection Condition on Discharge: Good Activity: As commented below Activity Comment: avoid heavy lifting with LEFT hand; gentle squeezing of fingers only Lifting: Wait until after follow-up appointment Bathing: Keep incision dry Bathing Comment: no baths; shower is ok; pat the finger dry; dry dressings as desired Sexual Activity: Wait until after follow-up appointment Exercise/Sports: Wait until after follow-up appointment Driving/Machine Use: NO DRIVING Non-emergency contact: Primary Care Provider, Surgeon and Psychiatrist Call non-emergency contact if: you have any medication questions, your symptoms worsen, your pain is not controlled, you have a fever, your wound has increased redness, your wound has increased drainage and your wound pain has increased Follow-up/Referrals: [facility] Service [Outside] (call to request service CRISIS NUMBER IS [phone]) [facility],Medicine [Non-Staff] - (call if services are needed CRISIS PHONE NUMBER IS [phone]) Nate Brady MD [Surgeon] - 10/18/20 12:30 pm (10/18 at 12:30 F/U Appt with Dr. Brady ) Diet: Regular Addtl Attending Provider Instructions: You were treated for the problems listed above in "discharge diagnoses." You had a POSITIVE COVID test on 10/08/2020. You had mild symptoms initially (runny nose, etc) which then progressed to mild fever, cough, chills. You seem to be improving from the COVID standpoint. The left 2nd finger is improved with surgery drainage and antibiotics. We are pleased with your progress. You are STILL CONTAGIOUS from the COVID19 and have to ISOLATE yourself at your home to avoid spreading it to others. Separate room from all others at home, separate bathroom, etc. You can STOP ISOLATION when the following 3 things have been met - * minimum 10 days have lapsed from the time of diagnosis (10/08/20) * you are IMPROVING * no fever for 24 hours Plan on isolating until your appointment with Dr Brady on 10/18/2020. See medication list for the meds called to your pharmacy for you. Your antibiotic is bactrim - 1 tablet twice daily for 2 weeks. Take your first dose TONIGHT. This is for your finger infection. avoid IV drugs if possible. no alcohol while taking antibiotics. for the COVID - plenty of rest, fluids, and deep breathing exercises. Feel better! Reasons to return to [facility] - finger is worsening (more redness, swelling, etc) severe diarrhea cough, shortness of breath, or chest pain worsens inability to eat/drink any other concerns Pending Studies at Discharge: No Stand-Alone Forms: My [facility], Smoking Cessation Medications and DC Order Prescriptions: New sulfamethoxazole-trimethoprim 800-160 mg Tablet 1 tab PO Q12 14 Days Qty: 28 RF: 0 benzonatate [Tessalon Perles] 100 mg Capsule 100 mg PO Q8H PRN (Reason: cough) Qty: 15 RF: 0 albuterol sulfate [Ventolin HFA] 90 mcg/actuation Hfa Aerosol Inhaler 2 puff inhalation Q4H PRN (Reason: cough/wheeze) Qty: 1 RF: 0 famotidine [Pepcid] 20 mg tablet 20 mg PO BID 14 Days Qty: 28 RF: 0 ondansetron 4 mg tablet,disintegrating 4 mg PO Q8H PRN (Reason: nausea and vomiting) Qty: 10 RF: 0 Discontinued clindamycin HCl 300 mg capsule 300 mg PO QID 7 Days Qty: 28 RF: 0 buprenorphine-naloxone 8-2 mg tablet, sublingual 1.5 tab SUBLINGUAL DAILY RF: 0 Discharge Orders: Discharge Order (Routine); Ordered 10/12/20 Ordered By: Ryan Reina/Other Patient Handouts: COVID-19 Home Care, Preventing the Spread of ..., MRSA Infec, How COVID-19 Spreads Admission Data Admit Date/Time: 10/07/20 02:45 Attending Provider: Ryan Palmer Admit Provider: Fredis Mcbride Primary Care Provider: PCP,NO Other Providers: Fredis Mcbride ; Leesa Lamar Other Interventions: Discharge Summary Assessment (RN) Last Done: 10/12/20 16:50 PSY Interdisciplinary Discharge Planning Last Done: 10/12/20 14:00 Coding
[2020-10-12] MEDS ORDERED: SULFAMETHOXAZOLE/TRIMETHOPRIM DS 800/160MG TAB PO SCH (21:00)
[2020-10-13] MEDS ORDERED: VANCOMYCIN TROUGH ONE (09:30)
--- NOTE | 2020-10-14 07:25 | Billing Data ---
Date of Service October 10, 2020 Coding Level of Care Code 78606 Subseq Hosp Care Lvl 3
--- NOTE | 2020-10-14 07:33 | Discharge Summary ---
Date of Service date of admission - 10/07/2020 date of discharge - 10/12/2020 Admission HPI Per Admitting Provider The patient is a 35-year-old female with a past medical history including IV drug abuse and fracture of right distal radius, who was initially admitted to [facility] for hand cellulitis on 10/01/2020, and eloped on 10/02/[address] still in [address]. She presents to the emergency department with the same complaint this evening. CT scan of hand was negative for osteomyelitis, orthopedic surgery was consulted over the phone, and the patient had a 302 petition completed by her mother due to the patient stating she was wishing to . Patient was placed on a 1:1 at time of admission. Principal Diagnosis 1. left 2nd finger MRSA abscess with cellulitis, s/p I & D of abscess 2. COVID-19 infection 3. polysubstance abuse Discharge Exam Constitutional no acute distress and no altered mental status ENMT external ear and nose normal, oropharynx normal Respiratory normal respiratory effort, lungs clear to auscultation Cardiovascular Rate/Rhythm: regular rate and regular rhythm Heart Sounds: normal S1 and normal S2; no murmur Vessels: posterior tibial pulses present and dorsalis pedis pulses present; no JVD Extremities: normal capillary refill (Left hand ); no edema Gastrointestinal (Abdomen) normal bowel sounds, soft, nontender, no hepatosplenomegaly Musculoskeletal handgrip left hand - normalizing; mild restriction of passive/active ROM of L 2nd finger - improved from prior exams. No signs of tenosynovitis of left 2nd finger. No signs of septic arthritis of PIP or DIP, left 2nd digit. Skin left hand: 2nd finger with mild gross swelling - much improved from prior exams. Sutures intact over left 2nd finger. Peeling of skin left 2nd finger. Mild erythema of left 2nd finger - improved from prior exams. No purulent drainage at time of discharge. Psychiatric Orientation: alert and oriented x 3 Mood: no depressed mood Thought Process: clear/coherent thought process Suicidal Thoughts: denies suicidal thoughts, denies suicidal plan and denies suicidal intent Homicidal Thoughts: denies homicidal thoughts, denies homicidal plan and denies homicidal intent Discharge Data Allergies Allergy/AdvReac Type Severity Reaction Status Date / Time Penicillins Allergy Intermediate HIVES Verified 10/06/20 23:41 Consultations Psychiatry Orthopedics - Nate Brady MD ([facility]) Procedures Performed Operation Date: 10/08/20 13:00 Actual Procedures Incision and Drainage Left 2nd finger - Nate Brady MD Ordered Studies 10/06/20 23:22 CT hand LT w con Urgent IMPRESSION: 1. No evidence of fracture 2. No foreign bodies identified 3. No CT evidence of osteomyelitis or abscess. 4. Soft tissue edema Hospital Course (1) Abscess of finger of left hand: left 2nd finger. Cellulitis & abscess developed due to injecting IV drugs into this finger outside of the hospital. 10/08/20 - s/p I & D of abscess by Dr Nate Brady. No evidence of septic joint or septic tenosynovitis during the operation. Culture grew MRSA. Antibiotics were narrowed to IV vancomycin after culture resulted. Finger improved with above measures. 10/12 - IV access lost, patient changed to oral bactrim at that time. Finger range of motion improved as well as swelling/erythema/drainage with the I/D and antibiotics. Recommendations at discharge: 1. bactrim DS 1 tab BID x 14 days at discharge. 2. f/u Dr Nate Brady at [facility] - 10/18/2020 - for recheck of finger. 3. leave sutures in place until seen by Dr Brady. (2) MRSA cellulitis: with abscess, left 2nd finger - see above. (3) COVID-19 virus infection: 10/01 and 10/07 COVID testing was negative, but pre-op COVID testing on 10/08 returned positive. Initially had minimal symptoms of runny nose/sore throat. However, this progressed to low-grade fever, chills, cough, and sweats later in her stay. Fortunately, however, she never had hypoxia, continued to eat well, and CBC showed only mild leukopenia. CRP, troponin were both normal. D-dimer minimally elevated. She did not meet criteria for usage of remdesivir, convalescent plasma, or dexamethasone. CDC criteria for exiting isolation at home discussed in detail with patient. She was afebrile at time of discharge with stable O2 sats. (4) Tobacco dependence: Nicoderm patch while here. Counseled to quit. (5) Positive blood culture: Admission blood cultures showed 1 out of 4 bottles positive for coag negative staph. 2 additional sets of blood cultures later in the stay were fully negative. Suspect that the 1 positive bottle was due to contamination. (6) IV drug abuse: h/o heroine usage, etc. Counseled to quit. Drug/alcohol rehab options discussed with patient. Did not show signs of withdrawal from any substance while here. (7) Hepatitis C: During prior hospitalization the patient tested positive for hepatitis C. HepC RNA was positive. She will need GI follow-up for this as well as abstinence from drugs & alcohol. LFTs were normal while here. (8) Suicidal thoughts: The patient's mother took out a 302 petition on patient at time of admission. By report the patient apparently has made comments about wanting to . She was not suicidal or homicidal during the stay, however. She required 1:1 because of 302 petition. Patient ultimately seen by psychiatry and 302 petition was revoked due to patient NOT expressing suicidal thoughts/intent during this hospitalization. Information was given to patient about counseling and options for outpatient psychiatric care. Total Time Total Time Spent Total Time Spent (In Minutes): 45 Total Time Includes: Examination of the Patient, Discharge Planning, Medication Reconciliation and Communication With Other Providers Discharge Plan Discharge Items Patient Disposition: Home - Self-Care Reason For Visit: HAND CELLULITIS Discharge Diagnosis: 1. left 2nd finger MRSA abscess with need for drainage/surgery by Dr Brady 2. left hand cellulitis 3. COVID-19 infection Condition on Discharge: Good Activity: As commented below Activity Comment: avoid heavy lifting with LEFT hand; gentle squeezing of fingers only Lifting: Wait until after follow-up appointment Bathing: Keep incision dry Bathing Comment: no baths; shower is ok; pat the finger dry; dry dressings as desired Sexual Activity: Wait until after follow-up appointment Exercise/Sports: Wait until after follow-up appointment Driving/Machine Use: NO DRIVING Non-emergency contact: Primary Care Provider, Surgeon and Psychiatrist Call non-emergency contact if: you have any medication questions, your symptoms worsen, your pain is not controlled, you have a fever, your wound has increased redness, your wound has increased drainage and your wound pain has increased Follow-up/Referrals: [facility] Service [Outside] (call to request service CRISIS NUMBER IS [phone]) [facility],Medicine [Non-Staff] - (call if services are needed CRISIS PHONE NUMBER IS [phone]) Nate Brady MD [Surgeon] - 10/18/20 12:30 pm (10/18 at 12:30 F/U Appt with Dr. Brady ) Diet: Regular Addtl Attending Provider Instructions: You were treated for the problems listed above in "discharge diagnoses." You had a POSITIVE COVID test on 10/08/2020. You had mild symptoms initially (runny nose, etc) which then progressed to mild fever, cough, chills. You seem to be improving from the COVID standpoint. The left 2nd finger is improved with surgery drainage and antibiotics. We are pleased with your progress. You are STILL CONTAGIOUS from the COVID19 and have to ISOLATE yourself at your home to avoid spreading it to others. Separate room from all others at home, separate bathroom, etc. You can STOP ISOLATION when the following 3 things have been met - * minimum 10 days have lapsed from the time of diagnosis (10/08/20) * you are IMPROVING * no fever for 24 hours Plan on isolating until your appointment with Dr Brady on 10/18/2020. See medication list for the meds called to your pharmacy for you. Your antibiotic is bactrim - 1 tablet twice daily for 2 weeks. Take your first dose TONIGHT. This is for your finger infection. avoid IV drugs if possible. no alcohol while taking antibiotics. for the COVID - plenty of rest, fluids, and deep breathing exercises. Feel better! Reasons to return to [facility] - finger is worsening (more redness, swelling, etc) severe diarrhea cough, shortness of breath, or chest pain worsens inability to eat/drink any other concerns Pending Studies at Discharge: No Stand-Alone Forms: My [facility], Smoking Cessation Medications and DC Order Prescriptions: New sulfamethoxazole-trimethoprim 800-160 mg Tablet 1 tab PO Q12 14 Days Qty: 28 RF: 0 benzonatate [Tessalon Perles] 100 mg Capsule 100 mg PO Q8H PRN (Reason: cough) Qty: 15 RF: 0 albuterol sulfate [Ventolin HFA] 90 mcg/actuation Hfa Aerosol Inhaler 2 puff inhalation Q4H PRN (Reason: cough/wheeze) Qty: 1 RF: 0 famotidine [Pepcid] 20 mg tablet 20 mg PO BID 14 Days Qty: 28 RF: 0 ondansetron 4 mg tablet,disintegrating 4 mg PO Q8H PRN (Reason: nausea and vomiting) Qty: 10 RF: 0 Discontinued clindamycin HCl 300 mg capsule 300 mg PO QID 7 Days Qty: 28 RF: 0 buprenorphine-naloxone 8-2 mg tablet, sublingual 1.5 tab SUBLINGUAL DAILY RF: 0 Discharge Orders: Discharge Order (Routine); Ordered 10/12/20 Ordered By: Ryan Reina/Other Patient Handouts: COVID-19 Home Care, Preventing the Spread of ..., MRSA Infec, How COVID-19 Spreads Admission Data Admit Date/Time: 10/07/20 02:45 Attending Provider: Ryan Palmer Admit Provider: Fredis Mcbride Primary Care Provider: PCP,NO Other Providers: Fredis Mcbride ; Leesa Lamar Other Interventions: Discharge Summary Assessment (RN) Last Done: 10/12/20 16:50 PSY Interdisciplinary Discharge Planning Last Done: 10/12/20 14:00 Coding Level of Care Code D/C Day Management >30 mins Diagnoses Abscess of finger of left hand L02.512 MRSA cellulitis L03.90; B95.62 COVID-19 virus infection U07.1 Tobacco dependence F17.200 Positive blood culture R78.81 IV drug abuse F19.10 Hepatitis C B19.20 Suicidal thoughts R45.851
--- NOTE | 2020-10-14 13:20 | Coding Query ---
PRESENT ON ADMISSION QUERY To promote full compliance with coding requirements relating to pateint care, physician participation is requested in all cases of certified court/medical interpreter uncertainty. Please assist us with the question(s) below: Please place an X within the parenthesis (x). The following diagnosis listed in this patient's medical record require physician assistance to determine if they were present on admission (POA) or not. Please advise for each diagnosis whether it was present on admission, not present on admission, or if it was clinically undetermined. 1. COVID-19 INFECTION (documentation begins on 10/08 with documentation of negative rapid test on 10/07 and positive test 10/08) ( ) Present On Admission (x ) Not Present On Admission ( ) Clinically Undetermined Thank you Balbina Rivera *Definition of the present on admission (POA)-Present on admission is defined as present at the time the order for inpatient admission occurs. Conditions that develop during an outpatient encounter prior to a written order for inpatient admission (including emergency department, observation, or outpatient surgery) are considered present on admission. MTDD
--- NOTE | 2020-10-14 13:28 | Coding Query ---
DEBRIDEMENT DOCUMENTATION To promote full compliance with coding requirements relating to patient care, physician participation is requested in all cases of equipment cleaner and tester uncertainty. Please assist us with the question(s) below regarding the Incision and Drainage as well as Debridement documentation on 10/08/20: Please place an X in the parenthesis (x). If other, please document the findin. Regarding the documentation of debridement, "Delaminated epidermis was debrided. There was a small area centrally where the abscess had eroded through the skin.": Type of Debridement: (x ) Excisional Debridement- Cutting away necrotic, devitalized tissue or slough to the level of viable tissue using a sharp instrument (i.e. scalpel, scissors, etc.) ( ) Non Excisional Debridement- The removal of necrotic, devitalized tissue or slough by means of scraping, mechanical brushing, flushing, or washing (i.e. irrigation,whirlpool);minor removal of loose fragments. ( ) Other (please specify): Instrument Used: (x ) Scissors ( ) Scalpel ( ) Curette ( ) Other (please specify): Depth of Debridement: ( ) Skin ( x) Skin and Subcutaneous Tissue ( ) Skin, Subcutaneous Tissue and Muscle ( ) Skin, Subcutaneous Tissue, Muscle and Bone ( ) Other (please specify): 2. Regarding the Incision and Drainage with evacuation of creamy purulence: Depth of Drainage: ( ) Skin ( x) Skin and Subcutaneous Tissue ( ) Skin, Subcutaneous Tissue and Muscle ( ) Skin, Subcutaneous Tissue, Muscle and Bone ( ) Other (please specify): Please specify below if this was done for just Diagnostic purpose or if done for both Diagnostic and Therapeutic purposes: ( ) Done for Diagnostic purpose ( x) Done for both Diagnostic and Therapeutic purposes ( ) Done for Therapeutic purpose Thank you Balbina PADILLA
== END 2020-10-12 17:25 | disposition home or self-care (01) | DRG 579 ==
LOC: ED 21:27 → 2W 10-07 02:45 → SUATTDRO 10-07 02:45 → 2W 10-07 03:44 → 2E 10-08 18:16 → 3E 10-09 14:05

== ENCOUNTER 2021-10-17 17:24 | Observation (INO) ==
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
[2021-10-17] MEDS ORDERED: SODIUM CHLORIDE 0.9% 1000ML 1,000 ML IV SCH (17:45)
[2021-10-17 18:25] LABS: Basophils # (auto) 0.01 K/uL (0-0.2); Basophils % (auto) 0.2 %; Eosinophils # (auto) 0.02 K/uL (0-0.5); Eosinophils % (auto) 0.5 %; Hematocrit (blood only) 39.4 % (37-47); Hemoglobin 13.4 g/dL (12.0-16.0); Immature Granulocytes # (auto) 0.01 K/uL (0.00-0.02); Immature Granulocytes % (auto) 0.2 %; Lymphocytes # (auto) 1.08 K/uL (1.2-3.4); Lymphocytes % (auto) 26.3 %; Mean Corpuscular Volume 88.3 fL (80-100); Mean Platelet Volume 9.1 fL (7.4-10.4); Monocytes # (auto) 0.39 K/uL (0.11-0.59); Monocytes % (auto) 9.5 %; Neutrophils # (auto) 2.59 K/uL (1.4-6.5); Neutrophils % (auto) 63.3 %; Platelet Count 208 K/uL (130-400); RDW Coefficient of Variation 12.8 % (11.5-14.5); RDW Standard Deviation 41.2 fL (36.4-46.3); Red Blood Count 4.46 M/uL (4.2-5.4)
[2021-10-17 18:46] LABS: Alanine Aminotransferase 76 (12-78); Albumin Level 3.5 gm/dl (3.4-5.0); Aspartate Aminotransferase 39 U/L (15-37); Blood Urea Nitrogen 10 mg/dl (7-18); Calcium 8.7 mg/dl (8.5-10.1); Carbon Dioxide 28 mmol/L (21-32); Chloride 105 mmol/L (98-107); Creatinine Clr Calc Pharmacy 107.3 ml/min; Est GFR (Non-African American) 101.8 ml/min; Glucose 182 mg/dl (70-99); Potassium 3.7 mmol/L (3.5-5.1); Sodium 138 mmol/L (136-145)
[2021-10-17 18:50] LABS: Alkaline Phosphatase 57 U/L (45-117); Globulin 3.5 gm/dl (2.5-4.0); Troponin I < 0.015 ng/ml (0-0.045)
[2021-10-17 18:52] LABS: Pregnancy Test, Serum Negative (Negative)
[2021-10-17 18:58] LABS: Bilirubin,Total 0.4 mg/dl (0.2-1)
[2021-10-17 19:13] LABS: Acetaminophen < 2 ug/ml (10-30); Salicylate < 1.7 mg/dl (2.8-20)
--- NOTE | 2021-10-17 19:27 | XRay Report ---
XR chest 1V portable HISTORY: Altered mental status. COMPARISON: Chest 07/30/2015. FINDINGS: No pneumothorax. No pleural effusions. There are low lung volumes. The heart is top normal in size. This remains unchanged. Mild interstitial thickening at the lung bases persists. This may be due to vascular crowding from the low lung volumes. Otherwise, no focal lung consolidations to sugge st pneumonia. No evidence for pulmonary edema. IMPRESSION: No significant change compared to the prior study. No acute process. ACT 112: Negative or not required by law. Electronically signed by: Perez Duenas M.D. 10/17/2021 7:26 PM
[2021-10-17 19:32] LABS: Appearance Urine Clear (Clear); Bilirubin Urine Negative (Negative); Blood Urine Negative (Negative); Color Urine Yellow; Glucose Urine UA Negative (Negative); Ketones Urine Negative (Negative); Leukocyte Esterase Urine Negative (Negative); Nitrite Urine Negative (Negative); Protein Urine Negative (Negative); Specific Gravity Urine 1.004 (1.000-1.030); Urobilinogen Urine Negative (Negative)
[2021-10-17] MEDS ORDERED: LACTATED RINGER'S 1,000 ML IV ONE ×2 (19:57→22:18)
[2021-10-17 20:17] LABS: Amphetamines+Metham, Urine Neg (Neg); Barbiturates, Urine Neg (Neg); Benzodiazepine, Urine Neg (Neg); Cocaine, Urine Neg (Neg); MDMA (Ecstacy), Urine Neg (Neg); Methadone, Urine Neg (Neg); Opiate, Urine Neg (Neg); Phencyclidine, Urine Neg (Neg)
--- NOTE | 2021-10-17 20:47 | History & Physical Report ---
Date of Service October 17, 2021 Assessment & Plan (1) Encephalopathy: Plan: Secondary to drug overdose History polysubstance abuse (Uncertain if patient only took Zyprexa, possible suicidal/self-harm attempt) mood disorder, unknown status chronic pain on Suboxone HCV, unknown status Hyperglycemia rule out DM ongoing tobacco abuse Medical telemetry Appropriate to hold home narcotics and/or psychotropic medications for now until patient more awake Suicide precautions Psych consult Re: Self-harm, possible suicidality Check hemoglobin A1c Nicotine patch as needed DVT prophylaxis per Lovenox subcu Full code Attempted to contact patient's boyfriend and mother over the phone to obtain additional history. No answer. Text document was generated using YouFetch voice recognition software. It may contain grammatical or spelling errors. Kindly contact undersigned for clarification of any documentation item in question. History of Present Illness Chief Complaint: Drug overdose Primary Care Provider: None (Patient previously seen at [facility]) History obtained from records. Unable to obtain history from patient secondary to obtunded state. Medical history significant for mood disorder, chronic pain on Suboxone, HCV, substance abuse as per records, ongoing tobacco abuse. Last confinement September 2024 left second finger MRSA abscess status post I&D. Patient had an argument with her boyfriend today as per EMS report. Patient overdosed and admitted to taking 2 tablets of Zyprexa secondary to anxiety. Unclear if patient had suicidal intent. Patient brought to the ER for evaluation and noted to be obtunded. Medical History as above Surgical History : Finger surgery, dental surgery, D&C Family History : Cancer Personal/Social history : Tobacco abuse, could not be fully obtained Allergies Allergy/AdvReac Type Severity Reaction Status Date / Time animal dander Allergy Severe Difficulty Verified 10/17/21 21:38 Breathing bee venom protein (honey bee) Allergy Severe Anaphylaxis Verified 10/17/21 21:38 Penicillins Allergy Intermediate HIVES Verified 10/17/21 21:38 Home Medications Medication Instructions Recorded Confirmed Type buprenorphine HCl 8 mg sublingual 8 mg SUBLINGUAL UD PRN 03/26/21 10/17/21 History tablet albuterol sulfate 90 mcg/actuation 1 inh INHALATION QID PRN 04/22/21 10/17/21 History breath activated powder inhaler Past Med/Surg History Medical History ADHD Anxiety and depression Asthma HAS NOT USED INHALER IN A WHILE Drug use LAST USED 04/21/21 FENTANYL/METH VIA SNORTING PT VERBALIZED OVERDOSE 03/2021 HOSPITALIZED AT [facility] [place] Heart palpitations NOT CURRENLTY History of COVID-19 09/2020 (HOSPITALIZED) Hypertension NO MEDS Hypokalemia DX LAST HOSPITAL VISIT PER PATIENT IV drug abuse Pain in both hands Poor intravenous access PTSD (post-traumatic stress disorder) Temporomandibular joint disorder NO LOCKING Surgical History Family history of reaction to anesthesia MOTHER-SLOW TO WAKE UP H/O hand surgery LEFT INDEX FINGER (I&D) H/O hand surgery RT History of anesthesia reaction SLOW TO WAKE UP FOR ORAL SURGERY History of arthroscopy RT KNEE History of dilatation and curettage History of tooth extraction Family History Grandfather (Maternal) Family hx of colon cancer Social History Smoking Status: Unknown if ever smoked Tobacco Type: Cigarettes Cigarettes Per Day: 7 CIG DAILY; Second Hand Exposure: Yes; Hx Alcohol Use: No Hx Substance Use: Yes Non-Prescribed Medications: Crack / Cocaine and Heroin Last Used Substance: Unknown Substance Use Type Other:: FENTANYL USE VIA SNORTING (ADVISED NOT TO USE) Preferred Language: French Communication Ability: Effective Musical Therapist Required: No Beliefs That Will Affect Care: None Current Living Situation: Family Current Living Situation Comment: [place] Feels Safe at Home: Yes Assistive Devices: Denture - Upper, Denture - Lower and Glasses Review of Systems Review of Systems: Could not be reliably obtained Physical Exam Physical Exam: GENERAL: Obtunded, no respiratory distress SKIN: Normal color, warm HEENT: [place] palpebral conjunctivae, no ptosis, dry buccal mucosa NECK : Supple, no tenderness CHEST : Decreased breath sounds, no tenderness HEART : RRR, no obvious murmurs ABDOMEN: Some distention, nontender EXTREMITIES : No LE swelling/tenderness, no other conspicuous deformities noted NEUROLOGIC : Obtunded, miotic pupils, no facial asymmetry, gait and stance not assessed Results & Data Results & Data (MN) Vital Signs (Past 12 Hours) Vital Signs Temp Pulse Pulse Resp BP BP Pulse Ox 10/17/21 19:49 64 14 98/60 L 100 10/17/21 17:33 84 12 122/74 98 10/17/21 17:15 36.4 C L 99 H 18 122/74 98 Laboratory Results Laboratory Results WBC 4.10 K/uL (4.8-10.8) L 10/17/21 18:01 RBC 4.46 M/uL (4.2-5.4) 10/17/21 18:01 Hgb 13.4 g/dL (12.0-16.0) 10/17/21 18:01 Hct 39.4 % (37-47) 10/17/21 18:01 MCV 88.3 fL (80-100) 10/17/21 18:01 MCH 30.0 pg (25-34) 10/17/21 18:01 MCHC 34.0 g/dL (32-36) 10/17/21 18:01 RDW Std Deviation 41.2 fL (36.4-46.3) 10/17/21 18:01 RDW Coeff of Peyton 12.8 % (11.5-14.5) 10/17/21 18:01 Plt Count 208 K/uL (130-400) 10/17/21 18:01 MPV 9.1 fL (7.4-10.4) 10/17/21 18:01 Immature Gran % (Auto) 0.2 % 10/17/21 18:01 Neut % (Auto) 63.3 % 10/17/21 18:01 Lymph % (Auto) 26.3 % 10/17/21 18:01 [place] % (Auto) 9.5 % 10/17/21 18:01 Eos % (Auto) 0.5 % 10/17/21 18:01 Baso % (Auto) 0.2 % 10/17/21 18:01 Neut # (Auto) 2.59 K/uL (1.4-6.5) 10/17/21 18:01 Lymph # (Auto) 1.08 K/uL (1.2-3.4) L 10/17/21 18:01 [place] # (Auto) 0.39 K/uL (0.11-0.59) 10/17/21 18:01 Eos # (Auto) 0.02 K/uL (0-0.5) 10/17/21 18:01 Baso # (Auto) 0.01 K/uL (0-0.2) 10/17/21 18:01 Immature Gran # (Auto) 0.01 K/uL (0.00-0.02) 10/17/21 18:01 Sodium 138 mmol/L (136-145) 10/17/21 18: Potassium 3.7 mmol/L (3.5-5.1) 10/17/21 18: Chloride 105 mmol/L (98-107) 10/17/21 18:01 Carbon Dioxide 28 mmol/L (21-32) 10/17/21 18: Anion Gap 4.0 (3-11) 10/17/21 18: BUN 10 mg/dl (7-18) 10/17/21 18: Creatinine 0.75 mg/dl (0.6-1.2) 10/17/21 18: Est Cr Clr Drug Dosing 107.3 ml/min 10/17/21 18:01 Est GFR ( Amer) 118.0 ml/min 10/17/21 18:01 Est GFR (Non-Af Amer) 101.8 ml/min 10/17/21 18:01 BUN/Creatinine Ratio 13.0 (10-20) 10/17/21 18:01 Glucose 182 mg/dl (70-99) H 10/17/21 18: Calcium 8.7 mg/dl (8.5-10.1) 10/17/21 18: Magnesium 2.0 mg/dl (1.8-2.4) 10/17/21 18: Total Bilirubin 0.4 mg/dl (0.2-1) 10/17/21 18: AST 39 U/L (15-37) H 10/17/21 18: ALT 76 (12-78) 10/17/21 18: Alkaline Phosphatase 57 U/L (45-117) 10/17/21 18: Troponin I < 0.015 ng/ml (0-0.045) 10/17/21 18: Total Protein 7.0 gm/dl (6.4-8.2) 10/17/21 18:01 Albumin 3.5 gm/dl (3.4-5.0) 10/17/21 18:01 Globulin 3.5 gm/dl (2.5-4.0) 10/17/21 18:01 Albumin/Globulin Ratio 1.0 (0.9-2) 10/17/21 18:01 HCG, Qual Negative (Negative) 10/17/21 18:01 Urine Color Yellow 10/17/21 19:19 Urine Appearance Clear (Clear) 10/17/21 19:19 Urine pH 8.0 (4.5-7.5) H 10/17/21 19:19 Ur Specific [place] 1.004 (1.000-1.030) 10/17/21 19:19 Urine Protein Negative (Negative) 10/17/21 19:19 Urine Glucose (UA) Negative (Negative) 10/17/21 19:19 Urine Ketones Negative (Negative) 10/17/21 19:19 Urine Blood Negative (Negative) 10/17/21 19:19 Urine Nitrite Negative (Negative) 10/17/21 19:19 Urine Bilirubin Negative (Negative) 10/17/21 19:19 Urine Urobilinogen Negative (Negative) 10/17/21 19:19 Ur Leukocyte Esterase Negative (Negative) 10/17/21 19:19 Salicylates < 1.7 mg/dl (2.8-20) L 10/17/21 18:01 Urine Opiates Screen Neg (Neg) 10/17/21 19:19 Ur Methadone, Qual Neg (Neg) 10/17/21 19:19 Acetaminophen < 2 ug/ml (10-30) L 10/17/21 18:01 Urine Barbiturates Neg (Neg) 10/17/21 19:19 Ur Phencyclidine (PCP) Neg (Neg) 10/17/21 19:19 U Amphetamin/Meth Scrn Neg (Neg) 10/17/21 19:19 MDMA (Ecstasy) Screen Neg (Neg) 10/17/21 19:19 U Benzodiazepines Scrn Neg (Neg) 10/17/21 19:19 Ur Cocaine Metabolite Neg (Neg) 10/17/21 19:19 U Marijuana (THC) Screen Neg (Neg) 10/17/21 19:19 Ethyl Alcohol mg/dL < 3.0 mg/dl (0-3) 10/17/21 18:01 SARS-CoV-2, RNA, NAAT NEGATIVE (NEGATIVE) 10/17/21 19:51 Impressions Chest X-Ray 10/17/21 17:33 XR chest 1V portable HISTORY: Altered mental status. COMPARISON: Chest 07/30/2015. FINDINGS: No pneumothorax. No pleural effusions. There are low lung volumes. The heart is top normal in size. This remains unchanged. Mild interstitial thickening at the lung bases persists. This may be due to vascular crowding from the low lung volumes. Otherwise, no focal lung consolidations to suggest pneumonia. No evidence for pulmonary edema. IMPRESSION: No significant change compared to the prior study. No acute process. ACT 112: Negative or not required by law. Electronically signed by: Perez Duenas M.D. 10/17/2021 7:26 PM Diagnostic Findings EKG as per my interpretation: Rate 85, NSR, normal axis, no ischemia
[2021-10-17] MEDS ORDERED: ACETAMINOPHEN 325 MG TAB PO PRN (23:56)
[2021-10-17] MEDS ORDERED: KETOROLAC TROMETHAMINE 15 MG/ML VIAL IV PRN (23:56)
[2021-10-17] MEDS ORDERED: PROMETHAZINE HCL 12.5 MG in SODIUM CHLORIDE 0.9% 50 ML IV PRN (23:56)
[2021-10-18 07:18] LABS: Estimated Average Glucose 97 mg/dl
[2021-10-18] MEDS: ENOXAPARIN INJ 40 MG/0.4 ML SYR SQ SCH (09:14)
--- NOTE | 2021-10-18 11:44 | Electrocardiogram Report ---
Test Reason : Blood Pressure : / mmHG Vent. Rate : 083 BPM Atrial Rate : 083 BPM P-R Int : 148 ms QRS Dur : 100 ms QT Int : 418 ms P-R-T Axes : 054 047 027 degrees QTc Int : 491 ms Normal sinus rhythm Prolonged QT Abnormal ECG When compared with ECG of 10-OCT-2020 14:29, T wave inversion no longer evident in Anterior leads Confirmed by Johnny Selelrs ([id number]) on 10/18/2021 11:44:12 AM Referred By: REFERRED SELF Confirmed By:Johnny Sellers
--- NOTE | 2021-10-18 12:09 | Electrocardiogram Report ---
Test Reason : Blood Pressure : / mmHG Vent. Rate : 064 BPM Atrial Rate : 064 BPM P-R Int : 184 ms QRS Dur : 096 ms QT Int : 458 ms P-R-T Axes : 057 040 039 degrees QTc Int : 472 ms Normal sinus rhythm with sinus arrhythmia Normal ECG When compared with ECG of 17-OCT-2021 17:51, (unconfirmed) No significant change was found Confirmed by Johnny Sellers ([id number]) on 10/18/2021 12:09:08 PM Referred By: REFERRED SELF Confirmed By:Johnny Sellers
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
--- NOTE | 2021-10-18 15:13 | Hospitalist Progress Note ---
Date of Service October 18, 2021 Assessment & Plan (1) Encephalopathy: (2) Drug overdose: Plan: 36-year-old female with PMH of mood disorder, chronic pain on Suboxone, HCV, substance abuse per records and ongoing tobacco abuse presented 1/ to our ED after having an argument with her boyfriend and overdosing herself on 2 tablets of Zyprexa and 2 tablets of Ativan, the strength of which she is not aware of. She is being managed for the following: #. Encephalopathy, 2/2 substance abuse #. Substance abuse #. H/o prior suicide attempt At presentation, patient was obtunded Patient overdosed on 2 tablets of Seroquel and 2 tablets of Ativan Known history of mood disorder and substance abuse Psychiatry consulted: Appreciate recommendation. Patient should not be allowed to leave AMA, 302 warrant per psychiatry if needed. Patient currently sleepy and difficult to get history from. Nicotine patch, EKG with borderline prolongation of QTC, NSR. Continue to monitor over telemetry, supportive management. #. Other chronic medical conditions: Resume home meds when able. DVT prophylaxis: Lovenox Full code Admission and Anticipated Discharge Date Admission Date: October 17, 2021 Subjective Patient was lying in bed, sleepy, difficult to get history from, oriented x3, NAD, no new acute events overnight per patient. Patient denies any chest pain/palpitation/fever/chills/back pain/acute changes in her bowel bladder habits/other review of symptoms. Patient reports of taking 2 pills of Seroquel and 2 pills of Ativan. Patient is on one-to-one sitter. Physical Exam Physical Exam: GENERAL: sleepy and oriented x3. NAD, on RA. HEENT: No pallor, no icterus. Pupils equal, round and reactive to light. Oral mucosa moist. NECK: No JVD, no neck masses. HEART: S1 and S2 heard. Regular rate and rhythm. No murmur, no gallop. RESPIRATORY SYSTEM: Normal AP diameter. No accessory muscle use. No wheezing, no crackles. ABDOMEN: Soft, bowel sounds present, nontender, no distention. CENTRAL NERVOUS SYSTEM: No facial droop. Speech is clear. Obeys simple commands. Moves extremities. EXTREMITIES: No edema, no erythema seen. Results & Data Results & Data ([facility]) Vital Signs (Past 12 Hours) Vital Signs Temp Pulse Resp BP Pulse Ox 10/18/21 11:49 36.8 C 65 18 100/57 L 98 10/18/21 07:43 36.8 C 66 20 116/68 98 10/18/21 06:31 67 18 103/70 100 10/18/21 05:28 71 16 95/60 L 96 10/18/21 03:52 74 16 102/61 99 (1) Drug overdose Encounter type: initial encounter Injury intent: undetermined intent Qualified Code(s): T50.904A - Poisoning by unspecified drugs, medicaments and biological substances, undetermined, initial encounter
[2021-10-19] MEDS: ENOXAPARIN INJ 40 MG/0.4 ML SYR SQ SCH (07:28)
--- NOTE | 2021-10-19 09:51 | Communication Note ---
Date of Service: October 19, 2021 case reviewed briefly with Dr. Link as patient is more alert and although denies the ingestion itself was a suicide attempt she continues to struggle with chronic SI (and likely substance abuse). Family has called in expressing concern about her SI and welfare and she has a rather unstable psychosocial situation. She is agreeable to a voluntary inpatient hospitalization and signed an MINDA for referral to the [facility] as no appropriate bed anticipated for a few days at [facility]. Liaison to assist with bed search/referral when medically cleared (repeat labs pending).
--- NOTE | 2021-10-19 10:54 | Hospitalist Progress Note ---
Date of Service October 19, 2021 Assessment & Plan (1) Encephalopathy: (2) Drug overdose: Plan: per Dr. Jain's notes with addendum: 36-year-old female with PMH of mood disorder, chronic pain on Suboxone, HCV, substance abuse per records and ongoing tobacco abuse presented 10/17 to our ED after having an argument with her boyfriend and overdosing herself on 2 tablets of Zyprexa and 2 tablets of Ativan, the strength of which she is not aware of. She is being managed for the following: #. Encephalopathy, 2/2 substance abuse #. Substance abuse #. H/o prior suicide attempt At presentation, patient was obtunded Patient overdosed on 2 tablets of Seroquel and 2 tablets of Ativan Known history of mood disorder and substance abuse Psychiatry consulted: Appreciate recommendation. Patient should not be allowed to leave AMA, 302 warrant per psychiatry if needed. Patient currently sleepy and difficult to get history from. Nicotine patch, EKG with borderline prolongation of QTC, NSR. Continue to monitor over telemetry, supportive management. 10/19/21 alert, oriented x 3, answers questions appropriately QTcorrected 458 AST/ALT mildly elevated 50/95 denies drinking alcohol Liver US ordered will need repeat LFTs in 3-5 days to monitor transition to [facility] for continuing inpatient Psych care #Hypothyroidism TSH 4.5, Free T4 0.78 reports feeling cold all the time, also constipation Thyroid US ordered start Levothyroxine 50mcg daily repeat Thyroid function test in 4 weeks plan of care discussed with patient in detail and at length all questions answered she is understanding, agreeable, comfortable with the plan of care strongly encouraged to establish with a PCP to monitor liver function, as well as further evaluation and management for hypothyroidism explained worsening of medical condition can happen without close follow up with PCP she verbalized understanding and agreement DVT prophylaxis: Lovenox given Full code Admission and Anticipated Discharge Date Admission Date: October 17, 2021 Subjective ff up for drug overdose- intentional, etc seen resting in bed, comfortable blood draw in progress, 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 also 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 alert, oriented x 3, pleasant has mild left temporal headache, did not sleep well last night, also not drinking water adequately no neuro deficits no chest pain, dyspnea, palpitations, dizziness, abdominal pain, nausea/vomiting, problems with urination or BM states she feels depressed but denies suicidality no other symptoms Review of Systems Review of Systems: all noted and negative except for above Physical Exam Constitutional: General- oriented x 3, not in distress, speaks in sentences with no effort or accessory muscle use Eyes- anicteric Neck- no JVD no thyromegaly Lungs- clear breath sounds bilaterally, no rales/wheezes Heart- normal rate, regular rhythm; no murmurs Abdomen- normal bowel sounds, nondistended, soft, nontender Extremities- no pretibial edema, no calf tenderness Neuro- alert, oriented x 3; no gross focal neurologic deficits Skin- warm & dry Psych- affect appropriate, denies suicidal ideation Results & Data Results & Data ([facility]) Vital Signs (Past 12 Hours) Vital Signs Temp Pulse Resp BP BP Pulse Ox 10/19/21 07:06 36.6 C 68 18 105/67 95 10/19/21 03:52 36.9 C 81 16 99/55 L 96 10/18/21 23:37 36.5 C 72 20 122/80 99 10/18/21 22:57 36.9 C 70 14 114/62 96 all noted and reviewed including below (1) Drug overdose Encounter type: initial encounter Injury intent: undetermined intent Qualified Code(s): T50.904A - Poisoning by unspecified drugs, medicaments and biological substances, undetermined, initial encounter
[2021-10-19 11:00] LABS: Albumin Level 3.3 gm/dl (3.4-5.0); BUN Creatinine Ratio 17.9 (10-20); Calcium 9.2 mg/dl (8.5-10.1); Est GFR (African American) 104.4 ml/min; Est GFR (Non-African American) 90.1 ml/min
[2021-10-19 11:06] LABS: Albumin Globulin Ratio 0.8 (0.9-2); Bilirubin,Total 0.5 mg/dl (0.2-1); Globulin 3.9 gm/dl (2.5-4.0); Thyroid Stimulating Hormone 4.56 uIu/ml (0.300-4.500); Total Protein 7.2 gm/dl (6.4-8.2)
[2021-10-19 11:36] LABS: Basophils # (auto) 0.01 K/uL (0-0.2); Basophils % (auto) 0.2 %; Eosinophils # (auto) 0.06 K/uL (0-0.5); Eosinophils % (auto) 1.3 %; Hematocrit (blood only) 42.7 % (37-47); Hemoglobin 14.3 g/dL (12.0-16.0); Immature Granulocytes # (auto) 0.02 K/uL (0.00-0.02); Immature Granulocytes % (auto) 0.4 %; Lymphocytes # (auto) 1.68 K/uL (1.2-3.4); Lymphocytes % (auto) 36.2 %; Mean Corpuscular Hemoglobin 29.5 pg (25-34); Mean Corpuscular Hgb Conc 33.5 g/dL (32-36); Mean Corpuscular Volume 88.2 fL (80-100); Mean Platelet Volume 9.9 fL (7.4-10.4); Monocytes # (auto) 0.58 K/uL (0.11-0.59); Monocytes % (auto) 12.5 %; Neutrophils # (auto) 2.29 K/uL (1.4-6.5); Neutrophils % (auto) 49.4 %; Platelet Count 195 K/uL (130-400); RDW Coefficient of Variation 12.8 % (11.5-14.5); RDW Standard Deviation 41.5 fL (36.4-46.3); Red Blood Count 4.84 M/uL (4.2-5.4); White Blood Count 4.64 K/uL (4.8-10.8)
[2021-10-19 12:01] LABS: Potassium 4.2 mmol/L (3.5-5.1); T4 Free Thyroxine 0.78 ng/dl (0.8-1.6)
--- NOTE | 2021-10-19 12:54 | Electrocardiogram Report ---
Test Reason : Blood Pressure : / mmHG Vent. Rate : 069 BPM Atrial Rate : 069 BPM P-R Int : 174 ms QRS Dur : 088 ms QT Int : 428 ms P-R-T Axes : 051 045 040 degrees QTc Int : 458 ms Normal sinus rhythm Possible Left atrial enlargement Persistent juvnile T wave abnormality Borderline ECG When compared with ECG of 18-OCT-2021 09:36, No significant change was found Confirmed by Johnny Sellers ([id number]) on 10/19/2021 12:54:31 PM Referred By: REFERRED SELF Confirmed By:Johnny Sellers
--- NOTE | 2021-10-19 20:36 | Ultrasound Report ---
ULTRASOUND RIGHT UPPER QUADRANT ABDOMEN CLINICAL HISTORY: Elevated hepatic transaminases. COMPARISON STUDY: No priors. TECHNIQUE: Real-time, grayscale, and color flow sonography of the right upper quadrant of the abdomen was performed. Images are reviewed in the transverse and longitudinal planes. FINDINGS: Liver: The liver is mildly enlarged measuring 19 cm in length. Echotexture is normal. There is no int rahepatic biliary ductal dilatation. The main portal vein is patent. A calcified granuloma is inciden tally noted. Gallbladder: There is a large shadowing calcified gallstone which measures up to 4 cm. Biliary sludge is observed. Foci of adenomyomatosis are suggested in the fundal region. There is no gallbladder wal l thickening or pericholecystic fluid. A sonographic Ambrocio's sign is reportedly absent. The common b ile duct measures up to 0.4 cm in diameter. Pancreas: Visualized portions of the pancreatic head and body are normal in appearance. The splenic v ein is patent. Right kidney: Survey images of the right kidney demonstrate normal size and echotexture. There is no hydronephrosis. Ascites: None. IMPRESSION: 1. There is a large gallstone and biliary sludge with no sonographic evidence of acute cholecystitis. 2. The liver is mildly enlarged. Echotexture is normal. ACT 112: Negative or not required by law. Electronically signed by: Greg Rodas M.D. 10/19/2021 8:34 PM
--- NOTE | 2021-10-19 20:38 | Ultrasound Report ---
ULTRASOUND OF THE THYROID GLAND CLINICAL HISTORY: Hypothyroidism. COMPARISON STUDY: No priors. TECHNIQUE: Real-time, grayscale, and color flow sonography of the thyroid gland is performed utilizin g a high-frequency linear transducer. Images are reviewed in the transverse and longitudinal planes. FINDINGS: Right lobe: The right lobe of the thyroid gland is normal in size and homogeneous in echotexture, gagan suring 4.3 x 1.3 x 2.1 cm. A hypoechoic nodule in the lower pole measures 0.6 x 0.5 x 0.6 cm. This ma y contain tiny calcifications versus colloid. Left lobe: The left lobe of the thyroid gland is normal in size and homogeneous in echotexture, measu ring 4.4 x 1.1 x 1.8 cm. A hypoechoic nodule in the lower pole measures 0.5 x 0.2 x 0.5 cm. 2 additio nal hypoechoic nodules measure up to 0.3 cm. Isthmus: The thyroid isthmus is normal in appearance and measures 0.2 cm in AP diameter. IMPRESSION: 1. The thyroid gland is normal in size and echotexture. 2. There is a 0.6 cm hypoechoic nodule in the right lower pole which may contain internal calcificati ons. A 6-12 month precautionary follow-up ultrasound is recommended for reassessment. ACT 112: Positive. There are findings on this exam that require communication between the performing entity and the patient following Patient Test Result Information Act ([place] Act 112) guidelines. Electronically signed by: Greg Rdoas M.D. 10/19/2021 8:37 PM
[2021-10-20] MEDS ORDERED: LEVOTHYROXINE SODIUM 50 MCG TABLET PO SCH (06:30)
[2021-10-20] MEDS: ENOXAPARIN INJ 40 MG/0.4 ML SYR SQ SCH (10:33)
--- NOTE | 2021-10-20 11:01 | Communication Note ---
Date of Service: October 20, 2021 Patient remains cooperative with medical work up. Results of liver US and thyroid US reviewed. medical clearance is pending as gallstone identified. Remai ns amenable and appropriate for inpatient psychiatric hospitalization when medically cleared.
--- NOTE | 2021-10-20 11:07 | Surgery Consultation ---
Date of Consultation October 20, 2021 Assessment & Plan (1) Gallstone: This is a 36y F who was admitted to [facility] on 10/17/21 secondary to drug overdose. Blood work revealed mildly elevated transaminases prompting a RUQ US revealing a large gallstone and biliary sludge with no sonographic evidence of acute cholecystitis. Surgery was consulted regarding US findings. Labs yesterday show a WBC 4, with LFTs revealing- Tb: 0.5, AST: 50, ALT: 95, ALkP: 59. On exam patient's abdomen is completely benign- soft, non tender, non distended. She is tolerating a diet without issues and has no abdominal complaints at this time. Her discharge is pending to the [facility]. Given stable exam patient can likely be discharged and we can evaluate patient as an outpatient for elective cholecystectomy. Her gallstone is 4cm large and may cause issues in the future. She was given return precautions should she develop new abdominal pain, nausea/vomiting, fevers and she expressed understanding. Will leave our information for f/u in her discharge instructions. History of Present Illness Attending Physician: Rene Link MD History of Present Illness This is a 36y F who was admitted to [facility] on 10/17/21 secondary to drug overdose. Blood work revealed mildly elevated transaminases prompting a RUQ US revealing a large gallstone and biliary sludge with no sonographic evidence of acute cholecystitis. Surgery was consulted regarding US findings. Patient denies any recent history of abdominal pain, nausea/vomiting, fevers/chills, change in bowel habits. She has been tolerating a diet without any issues. No previous abdominal surgical history. Allergies Allergy/AdvReac Type Severity Reaction Status Date / Time animal dander Allergy Severe Difficulty Verified 10/17/21 21:38 Breathing bee venom protein (honey bee) Allergy Severe Anaphylaxis Verified 10/17/21 21:38 Penicillins Allergy Intermediate HIVES Verified 10/17/21 21:38 Home Medications Medication Instructions Recorded Confirmed Type buprenorphine HCl 8 mg sublingual 8 mg SUBLINGUAL UD PRN 03/26/21 10/17/21 History tablet albuterol sulfate 90 mcg/actuation 1 inh INHALATION QID PRN 04/22/21 10/17/21 History breath activated powder inhaler levothyroxine 50 mcg tablet 50 mcg PO DAILYBB 30 Days #30 tab 10/19/21 Rx (Synthroid) Patient History Medical History ADHD Anxiety and depression Asthma HAS NOT USED INHALER IN A WHILE Drug use LAST USED 04/21/21 FENTANYL/METH VIA SNORTING PT VERBALIZED OVERDOSE 03/2021 HOSPITALIZED AT [facility] Heart palpitations NOT CURRENLTY History of COVID-19 09/2020 (HOSPITALIZED) Hypertension NO MEDS Hypokalemia DX LAST HOSPITAL VISIT PER PATIENT IV drug abuse Pain in both hands Poor intravenous access PTSD (post-traumatic stress disorder) Temporomandibular joint disorder NO LOCKING Surgical History Family history of reaction to anesthesia MOTHER-SLOW TO WAKE UP H/O hand surgery LEFT INDEX FINGER (I&D) H/O hand surgery RT History of anesthesia reaction SLOW TO WAKE UP FOR ORAL SURGERY History of arthroscopy RT KNEE History of dilatation and curettage History of tooth extraction Family History Grandfather (Maternal) Family hx of colon cancer Social History Smoking Status: Never smoker Tobacco Type: Cigarettes Cigarettes Per Day: 7 CIG DAILY; Second Hand Exposure: Yes; Hx Alcohol Use: No Hx Substance Use: Yes Non-Prescribed Medications: Crack / Cocaine and Heroin Last Used Substance: Unknown Substance Use Type Other:: FENTANYL USE VIA SNORTING (ADVISED NOT TO USE) Preferred Language: Armenian Communication Ability: Effective Manager Transfer Required: No Beliefs That Will Affect Care: None Current Living Situation: Spouse Current Living Situation Comment: [place] Feels Safe at Home: Yes Assistive Devices: None Review of Systems Constitutional: no fever, no chills and no anorexia Gastrointestinal: no abdominal pain, no bloating, no nausea, no vomiting and no change in bowel habits Physical Exam Physical Exam: awake/alert Constitutional: no acute distress Gastrointestinal (Abdomen): Inspection/Auscultation: abdomen not distended Percussion/Palpation: abdomen soft; abdomen nontender Results & Data ([facility]) Vital Signs (Past 12 Hours) Vital Signs Temp Pulse Resp BP Pulse Ox 10/20/21 08:54 36.9 C 69 20 98/61 L 96 10/20/21 04:00 37.1 C 74 18 107/66 97 Diagnostic Findings ULTRASOUND RIGHT UPPER QUADRANT ABDOMEN CLINICAL HISTORY: Elevated hepatic transaminases. COMPARISON STUDY: No priors. TECHNIQUE: Real-time, grayscale, and color flow sonography of the right upper quadrant of the abdomen was performed. Images are reviewed in the transverse and longitudinal planes. FINDINGS: Liver: The liver is mildly enlarged measuring 19 cm in length. Echotexture is normal. There is no intrahepatic biliary ductal dilatation. The main portal vein is patent. A calcified granuloma is incidentally noted. Gallbladder: There is a large shadowing calcified gallstone which measures up to 4 cm. Biliary sludge is observed. Foci of adenomyomatosis are suggested in the fundal region. There is no gallbladder wall thickening or pericholecystic fluid. A sonographic Ambrocio's sign is reportedly absent. The common bile duct measures up to 0.4 cm in diameter. Pancreas: Visualized portions of the pancreatic head and body are normal in appearance. The splenic vein is patent. Right kidney: Survey images of the right kidney demonstrate normal size and echotexture. There is no hydronephrosis. Ascites: None. IMPRESSION: 1. There is a large gallstone and biliary sludge with no sonographic evidence of acute cholecystitis. 2. The liver is mildly enlarged. Echotexture is normal. ACT 112: Negative or not required by law. Electronically signed by: Greg Rodas M.D. 10/19/2021 8:34 PM PG Care Time/CCT Total # of Minutes Spent Total Time Spent with Patient: Total time spent is greater than 50% in coordination of care (as documented) at patient's floor/unit and/or counseling patient: Coding Level of Care Code 03241 Inpt Consult Level 2 Diagnoses Gallstone K80.20
[2021-10-20 13:50] LABS: Alanine Aminotransferase 104 (12-78); Albumin Level 3.4 gm/dl (3.4-5.0); Alkaline Phosphatase 63 U/L (45-117); Aspartate Aminotransferase 53 U/L (15-37); Bilirubin Direct < 0.1 mg/dl (0-0.2); Bilirubin,Total 0.3 mg/dl (0.2-1); Total Protein 7.3 gm/dl (6.4-8.2)
--- NOTE | 2021-10-20 13:58 | Hospitalist Progress Note ---
Date of Service October 20, 2021 Assessment & Plan (1) Encephalopathy: (2) Drug overdose: Plan: per Dr. Jain's notes with addendum: 36-year-old female with PMH of mood disorder, chronic pain on Suboxone, HCV, substance abuse per records and ongoing tobacco abuse presented 10/17 to our ED after having an argument with her boyfriend and overdosing herself on 2 tablets of Zyprexa and 2 tablets of Ativan, the strength of which she is not aware of. She is being managed for the following: #. Encephalopathy, 2/2 substance abuse #. Substance abuse #. H/o prior suicide attempt # Gallstone, Large At presentation, patient was obtunded Patient overdosed on 2 tablets of Seroquel and 2 tablets of Ativan Known history of mood disorder and substance abuse Psychiatry consulted: Appreciate recommendation. Patient should not be allowed to leave AMA, 302 warrant per psychiatry if needed. Patient currently sleepy and difficult to get history from. Nicotine patch, EKG with borderline prolongation of QTC, NSR. Continue to monitor over telemetry, supportive management. 10/20/21 alert, oriented x 3, answers questions appropriately QT corrected 458 AST/ALT mildly elevated 50/95- stable at 53/104 denies drinking alcohol Liver US: 1. There is a large gallstone and biliary sludge with no sonographic evidence of acute cholecystitis. 2. The liver is mildly enlarged. Echotexture is normal. Gen Surg consulted- outpatient follow up for elective Cholecystectomy evaluation will need repeat LFTs in 5-7 days to monitor transition to [place] for continuing inpatient Psych care #Hypothyroidism new diagnosis TSH 4.5, Free T4 0.78 reports feeling cold all the time, also constipation Thyroid US ordered: 1. The thyroid gland is normal in size and echotexture. 2. There is a 0.6 cm hypoechoic nodule in the right lower pole which may contain internal calcifications. A 6-12 month precautionary follow-up ultrasound is recommended for reassessment. start Levothyroxine 50mcg daily repeat Thyroid function test in 4 weeks plan of care discussed with patient in detail and at length all questions answered she is understanding, agreeable, comfortable with the plan of care strongly encouraged to establish with a PCP to monitor liver function, as well as further evaluation and management for hypothyroidism explained worsening of medical condition can happen without close follow up with PCP she verbalized understanding and agreement DVT prophylaxis: Lovenox given Full code plan of care discussed with patient in detail and at length all questions answered she is understanding, agreeable, comfortable with the plan of care Admission and Anticipated Discharge Date Admission Date: October 17, 2021 Subjective FF UP FOR INTENTIONAL DRUG OVERDOSE, ETC seen resting in bed, comfortable sitting up, 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 1:1 observation in progress states she feels fine overall no chest pain, dyspnea, palpitations, dizziness no headache denies abdominal pain, nausea/vomiting, fever/chills reports feeling depressed, but no suicidal ideations no other symptoms [facility] Review of Systems Review of Systems: all noted and negative except for above Physical Exam Physical Exam: General- oriented x 3, not in distress, speaks in sentences with no effort or accessory muscle use Eyes- anicteric Neck- no JVD Lungs- clear breath sounds bilaterally, no rales/wheezes Heart- normal rate, regular rhythm; no murmurs Abdomen- normal bowel sounds, nondistended, soft, nontender no Ambrocio's sign Extremities- no pretibial edema, no calf tenderness Neuro- alert, oriented x 3; no gross focal neurologic deficits Skin- warm & dry Results & Data Results & Data ([facility]) Vital Signs (Past 12 Hours) Vital Signs Temp Pulse Resp BP Pulse Ox 10/20/21 08:54 36.9 C 69 20 98/61 L 96 10/20/21 04:00 37.1 C 74 18 107/66 97 all noted and reviewed including below (1) Drug overdose Encounter type: initial encounter Injury intent: undetermined intent Qualified Code(s): T50.904A - Poisoning by unspecified drugs, medicaments and biological substances, undetermined, initial encounter
--- NOTE | 2021-10-20 14:04 | Discharge Summary ---
Date of Service October 20, 2021 Admission HPI Per Admitting Provider History obtained from records. Unable to obtain history from patient secondary to obtunded state. Medical history significant for mood disorder, chronic pain on Suboxone, HCV, substance abuse as per records, ongoing tobacco abuse. Last confinement September 2024 left second finger MRSA abscess status post I&D. Patient had an argument with her boyfriend today as per EMS report. Patient overdosed and admitted to taking 2 tablets of Zyprexa secondary to anxiety. Unclear if patient had suicidal intent. Patient brought to the ER for evaluation and noted to be obtunded. Medical History as above Surgical History : Finger surgery, dental surgery, D&C Family History : Cancer Personal/Social history : Tobacco abuse, could not be fully obtained Admission Exam (Per Admitting) Constitutional GENERAL: Obtunded, no respiratory distress SKIN: Normal color, warm HEENT: [place] palpebral conjunctivae, no ptosis, dry buccal mucosa NECK : Supple, no tenderness CHEST : Decreased breath sounds, no tenderness HEART : RRR, no obvious murmurs ABDOMEN: Some distention, nontender EXTREMITIES : No LE swelling/tenderness, no other conspicuous deformities noted NEUROLOGIC : Obtunded, miotic pupils, no facial asymmetry, gait and stance not assessed Discharge Data Consultations 10/17/21 19:41 ED Decision to Admit Stat 10/17/21 23:56 Consult Psychiatry Routine 10/20/21 08:49 Consult General Surgery Routine Procedures Performed XR chest 1V portable HISTORY: Altered mental status. COMPARISON: Chest 07/30/2015. FINDINGS: No pneumothorax. No pleural effusions. There are low lung volumes. The heart is top normal in size. This remains unchanged. Mild interstitial thickening at the lung bases persists. This may be due to vascular crowding from the low lung volumes. Otherwise, no focal lung consolidations to suggest pneumonia. No evidence for pulmonary edema. IMPRESSION: No significant change compared to the prior study. No acute process. ACT 112: Negative or not required by law. Electronically signed by: Perez Duenas M.D. 10/17/2021 7:26 PM ULTRASOUND RIGHT UPPER QUADRANT ABDOMEN CLINICAL HISTORY: Elevated hepatic transaminases. COMPARISON STUDY: No priors. TECHNIQUE: Real-time, grayscale, and color flow sonography of the right upper quadrant of the abdomen was performed. Images are reviewed in the transverse and longitudinal planes. FINDINGS: Liver: The liver is mildly enlarged measuring 19 cm in length. Echotexture is normal. There is no intrahepatic biliary ductal dilatation. The main portal vein is patent. A calcified granuloma is incidentally noted. Gallbladder: There is a large shadowing calcified gallstone which measures up to 4 cm. Biliary sludge is observed. Foci of adenomyomatosis are suggested in the fundal region. There is no gallbladder wall thickening or pericholecystic fluid. A sonographic Ambrocio's sign is reportedly absent. The common bile duct measures up to 0.4 cm in diameter. Pancreas: Visualized portions of the pancreatic head and body are normal in appearance. The splenic vein is patent. Right kidney: Survey images of the right kidney demonstrate normal size and echotexture. There is no hydronephrosis. Ascites: None. IMPRESSION: 1. There is a large gallstone and biliary sludge with no sonographic evidence of acute cholecystitis. 2. The liver is mildly enlarged. Echotexture is normal. ACT 112: Negative or not required by law. Electronically signed by: Greg Rodas M.D. 10/19/2021 8:34 PM ULTRASOUND OF THE THYROID GLAND CLINICAL HISTORY: Hypothyroidism. COMPARISON STUDY: No priors. TECHNIQUE: Real-time, grayscale, and color flow sonography of the thyroid gland is performed utilizing a high-frequency linear transducer. Images are reviewed in the transverse and longitudinal planes. FINDINGS: Right lobe: The right lobe of the thyroid gland is normal in size and homogeneous in echotexture, measuring 4.3 x 1.3 x 2.1 cm. A hypoechoic nodule in the lower pole measures 0.6 x 0.5 x 0.6 cm. This may contain tiny calcifications versus colloid. Left lobe: The left lobe of the thyroid gland is normal in size and homogeneous in echotexture, measuring 4.4 x 1.1 x 1.8 cm. A hypoechoic nodule in the lower pole measures 0.5 x 0.2 x 0.5 cm. 2 additional hypoechoic nodules measure up to 0.3 cm. Isthmus: The thyroid isthmus is normal in appearance and measures 0.2 cm in AP diameter. IMPRESSION: 1. The thyroid gland is normal in size and echotexture. 2. There is a 0.6 cm hypoechoic nodule in the right lower pole which may contain internal calcifications. A 6-12 month precautionary follow-up ultrasound is recommended for reassessment. ACT 112: Positive. There are findings on this exam that require communication between the performing entity and the patient following Patient Test Result Information Act ([place] Act 112) guidelines. Electronically signed by: Greg Rodas M.D. 10/19/2021 8:37 PM Hospital Course (1) Encephalopathy: (2) Drug overdose: per Dr. Jain's notes with addendum: 36-year-old female with PMH of mood disorder, chronic pain on Suboxone, HCV, substance abuse per records and ongoing tobacco abuse presented 10/17 to our ED after having an argument with her boyfriend and overdosing herself on 2 tablets of Zyprexa and 2 tablets of Ativan, the strength of which she is not aware of. She is being managed for the following: #. Encephalopathy, 2/2 substance abuse #. Substance abuse #. H/o prior suicide attempt # Gallstone, Large At presentation, patient was obtunded Patient overdosed on 2 tablets of Seroquel and 2 tablets of Ativan Known history of mood disorder and substance abuse Psychiatry consulted: Appreciate recommendation. Patient should not be allowed to leave AMA, 302 warrant per psychiatry if needed. Patient currently sleepy and difficult to get history from. Nicotine patch, EKG with borderline prolongation of QTC, NSR. Continue to monitor over telemetry, supportive management. 10/20/21 alert, oriented x 3, answers questions appropriately QT corrected 458 AST/ALT mildly elevated 50/95- stable at 53/104 denies drinking alcohol Liver US: 1. There is a large gallstone and biliary sludge with no sonographic evidence of acute cholecystitis. 2. The liver is mildly enlarged. Echotexture is normal. Gen Surg consulted- outpatient follow up for elective Cholecystectomy evaluation will need repeat LFTs in 5-7 days to monitor transition to [facility] for continuing inpatient Psych care #Hypothyroidism, New Diagnosis Thyroid Nodule TSH 4.5, Free T4 0.78 reports feeling cold all the time, also constipation Thyroid US ordered: 1. The thyroid gland is normal in size and echotexture. 2. There is a 0.6 cm hypoechoic nodule in the right lower pole which may contain internal calcifications. A 6-12 month precautionary follow-up ultrasound is recommended for reassessment. start Levothyroxine 50mcg daily repeat Thyroid function test in 4 weeks plan of care discussed with patient in detail and at length all questions answered she is understanding, agreeable, comfortable with the plan of care strongly encouraged to establish with a PCP to monitor liver function, as well as further evaluation and management for hypothyroidism explained worsening of medical condition can happen without close follow up with PCP she verbalized understanding and agreement DVT prophylaxis: Lovenox given Full code plan of care discussed with patient in detail and at length all questions answered she is understanding, agreeable, comfortable with the plan of care
== END 2021-10-20 16:28 | DRG 917 ==
LOC: ED 17:24 → SUATTDRO 20:48 → EDINP 20:48 → INTOOBSV 20:48 → 2N 10-18 18:40